=== PATIENT | female | born 1945 | race Caucasian/White ===

== ENCOUNTER 2018-04-28 12:28 | Inpatient (IN) | payer MEDICARE, OTHER ==
[~2018-04-28] VITALS: Ht 165.1 cm; Wt 71.1 kg
--- NOTE | 2018-04-28 12:28 | NUR ---
PT. ARRIVES BY [facility] AFTER BEING FOUND ON HER FLOOR AT HOME. [facility]. WAS HYPOXIC IN THE HIGH 60'S TO LOW 70'S. PT. ARRIVES ON A NASAL CANNULA WELL NON-REBREATHER MASK. PT. HAS THE CP MONITOR IN PLACE. PT. IS CONTINENT OF EMESIS, URINE AND FECES FROM HEAD TO TOE. PT. WAS GIVEN SKIN CARE. IV ACCESS WAS ESTABLISHED IN THE FIELD. A SECOND IV WAS PLACED AND PT.'S NS BOLUS IS INFUSING. LABS WERE DRAWN AND SENT, INCLUDING BLOOD CULTURES. PT. HAS THE SEPSIS PROTOCAL INICIATED. PT. IS PALE AND HAS DARK, BROWN BLOODY EMESIS PRESENT. KELSY MALDONADO IS ASSISTING THE PRIMARY CARE RN ANGELLA WITH THE PT.'S CARE. PT. WAS GIVEN SKIN CARE, HOB IS ELEVATED ABOVE 30 DEGREES AND WARMING MEASURES ARE IN PLACE. DR. CARCAMO IS AT THE BEDSIDE.
[2018-04-28] MEDS ORDERED: ONDANSETRON 2MG/ML, 2ML ONE (12:36)
[2018-04-28] MEDS ORDERED: PANTOPRAZOLE 80 MG in SODIUM CHLORIDE 0.9% 50 ML IVPB ONE (12:54)
[2018-04-28] MEDS ORDERED: PIPERACILLIN/TAZO/PMX 3.375GM 50 ML ONE ×2 (12:56→19:46)
[2018-04-28] MEDS ORDERED: PANTOPRAZOLE 40 MG IV ONE ×2 (12:56→20:32)
[2018-04-28] MEDS ORDERED: ONDANSETRON 2MG/ML, 2ML IVPush ONE (13:00)
[2018-04-28] MEDS ORDERED: PLEASE ENTER ALLERGIES MC SCH (13:00)
[2018-04-28] MEDS ORDERED: SODIUM CHLORIDE 0.9% 1,000ML IVBOLUS ONE (13:00)
[2018-04-28] MEDS ORDERED: PIPERACILLIN/TAZO/PMX 3.375GM 50 ML IVPB ONE (13:00)
[2018-04-28] MEDS ORDERED: VANCOMYCIN 1,200 MG in SODIUM CHLORIDE 0.9% 250 ML IV ONE (13:00)
[2018-04-28] MEDS ORDERED: METOCLOPRAMIDE 5 MG/ML, 2ML IVPush ONE (13:00)
[2018-04-28] MEDS ORDERED: VANCOMYCIN PER PHARMACY MC ONE (13:00)
--- NOTE | 2018-04-28 13:00 | NUR ---
KELSY MALDONADO IS ASSUMING CARE OF THE PT. IV ABX ARE INFUSING ON THE PUMP. PT. REMAINS MONITORED WITH THE HOB ELEVATED ABOVE 30 DEGREES. PT.'S BOLUS IS INFUSING.
--- NOTE | 2018-04-28 13:01 | NUR ---
PT. 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 PT. REMAINS PALE, WARM AND DRY. PT.'S ABD. IS SOFT AND FLAT WITH BS + X 4 QUADS. CAP REFILL IS BRISK WITH PULSES +2 THROUGHOUT. RN REMAINS AT THE PT.'S BEDSIDE.
[2018-04-28 13:08] LABS: MEAN CORPUSCULAR HEMOGLOBIN 28.9 pg (27.0-34.8); MEAN CORPUSCULAR VOLUME 87.7 fL (80-100); MEAN PLATELET VOLUME 9.8 fL (7.4-10.4); PLATELET COUNT 361 x10^3/uL (130-400); RED BLOOD COUNT 3.56 x10^6/uL (3.82-5.3); RED CELL DISTRIBUTION WIDTH 15.1 % (9.6-15.2)
[2018-04-28 13:09] LABS: MD YES
[2018-04-28] MEDS ORDERED: hydrALAzine 20 MG/ML, 1ML ONE (13:11)
[2018-04-28 13:16] LABS: ALBUMIN 2.9 g/dL (3.4-5.0); CALCIUM 7.9 mg/dL (8.5-10.1); CHLORIDE 113 mmol/L (98-107)
[2018-04-28 13:17] LABS: INTERNATIONAL NORMALIZED RATIO 1.31 (0.93-1.1); PROTHROMBIN TIME 13.4 Seconds (9.6-11.5)
[2018-04-28 13:20] LABS: ALANINE AMINOTRANSFERASE 19 U/L (12-78); ANION GAP 17 mmol/L (5-15); CREATININE 2.37 mg/dL (0.55-1.02)
[2018-04-28 13:21] LABS: BANDS%(MANUAL) 12 % (0-7); LYMPH#(MANUAL) 0.31 x10^3/uL (1-3.4); LYMPHS% (MANUAL) 1 % (22-44); MONOS#(MANUAL) 0.92 x10^3/uL (0.3-2.7); MONOS% (MANUAL) 3 % (2-9); SEG#(MANUAL) 25.87 x10^3/uL (1.8-6.8); SEGS% (MANUAL) 84 % (42-75)
[2018-04-28 13:22] LABS: <PLATELET ESTIMATE> ADEQUATE; <PLT MORPHOLOGY> NORMAL PLT MORPH; <RBC MORPHOLOGY> NORMAL
--- NOTE | 2018-04-28 13:23 | NUR ---
PT. WAS MEDICATED FOR AN ELEVATED BP ORDERED. ALL MEDICATIONS ARE BEING GIVEN PER MD'S INSTRUCTION. PT. REMAINS MONITORED WITH THE RN AT THE BEDSIDE.
[2018-04-28 13:24] LABS: ALKALINE PHOSPHATASE 134 U/L (45-117); BILIRUBIN,TOTAL 1.2 mg/dL (0.2-1.0); TOTAL PROTEIN 6.6 g/dL (6.4-8.2)
[2018-04-28 13:26] LABS: TROPONIN I 0.627 ng/mL (0.000-0.045)
[2018-04-28] MEDS ORDERED: hydrALAzine 20 MG/ML, 1ML IV ONE (13:30)
[2018-04-28] MEDS ORDERED: METOCLOPRAMIDE 5 MG/ML, 2ML ONE (13:34)
--- NOTE | 2018-04-28 13:45 | NUR ---
PT. IS RESTLESS AND AGITATED. PT. WAS REPOSITIONED FOR COMFORT AND MEDICATED DIRECTED. PT.'S HOB REMAINS ELEVATED ABOVE 30 DEGREES. PT. HAS BLANKETS IN PLACE WITH THE SIDERAILS UP X 2 AND THE RN AT THE BEDSIDEL
[2018-04-28] MEDS ORDERED: LORazepam 2 MG/ML, 1ML ONE (13:46)
[2018-04-28] MEDS ORDERED: LORazepam 2 MG/ML, 1ML IVPush ONE (14:00)
--- NOTE | 2018-04-28 14:20 | NUR ---
RN REMAINS AT THE BEDSIDE WITH THE PT. HOB IS ELEVATED GREATER THAN 30 DEGREES. MEDS ARE INFUSING ON THE PUMP. PT. REMAINS MONITORED. SIDERAILS ARE UP X 2, BLANKETS REMAIN IN PLACE.
--- NOTE | 2018-04-28 15:29 | NUR ---
PT. REMAINS MONITORED. STRAIGHT CATH WAS DONE. PT. WAS PLACED ON A WAFFLE MATTRESS AND REPOSITIONED FOR COMFORT. PT. IS RESTING AT THIS TIME. RN AT THE BEDSIDE. [facility]A SENT.
[2018-04-28 15:44] LABS: MICROSCOPIC INDICATED
[2018-04-28 16:01] LABS: CULTURE INDICATED? NO
--- NOTE | 2018-04-28 16:01 | NUR ---
DR. JOHNSON IS AT THE BEDSIDE.
--- NOTE | 2018-04-28 16:55 | NUR ---
RT EARLENE TO THE BEDSIDE TO ADJUST PT.'S OPI-FLOW SETTINGS DOWN TO 30 LPM AT 50%.
--- NOTE | 2018-04-28 16:59 | NUR ---
NO CHANGES AT THIS TIME. PT. REMAINS MONITORED AND IS RESTING WITHOUT CONCERNS. SIDERAILS REMAIN UP X 2.
[2018-04-28] MEDS ORDERED: VANCOMYCIN PER PHARMACY MC PRN (17:00)
[2018-04-28] MEDS ORDERED: LORazepam 2 MG/ML, 1ML IVPush PRN (17:00)
[2018-04-28] MEDS ORDERED: POLYETHYLENE GLYCOL 17 GM PACKET PO PRN (17:00)
[2018-04-28] MEDS ORDERED: BISACODYL 10 MG SUPP PR PRN (17:00)
[2018-04-28] MEDS ORDERED: OXYcodone IR 5MG TABLET PO PRN (17:00)
[2018-04-28] MEDS ORDERED: ONDANSETRON 2MG/ML, 2ML IVPush PRN (17:00)
[2018-04-28] MEDS ORDERED: ONDANSETRON ODT 4 MG PO PRN (17:00)
[2018-04-28] MEDS ORDERED: ENALAPRILAT 1.25 MG/ML, 2ML IVPush PRN (17:00)
[2018-04-28] MEDS ORDERED: LABETALOL 5MG/ML, 20ML IVPush PRN (17:00)
[2018-04-28] MEDS ORDERED: morphine SULFATE 10 MG/ML, 1ML IVPush PRN (17:00)
[2018-04-28] MEDS: SODIUM CHLORIDE 0.9% 1,000 ML IV SCH (17:24)
[2018-04-28] MEDS ORDERED: POTASSIUM CHLORIDE 20 MEQ TAB.ER.PRT ONE (17:25)
[2018-04-28] MEDS ORDERED: POTASSIUM CHLORIDE 20 MEQ TAB.ER.PRT PO ONE (17:30)
--- NOTE | 2018-04-28 17:47 | NUR ---
DR. SHELBY WAS CALLED WITH PT.'S ELEVATED TROP LEVEL, MESSAGE LEFT. REPEAT EKG WAS DONE. CONTINUOUS MONITORING IS IN PLACE.
[2018-04-28] MEDS ORDERED: LABETALOL 5MG/ML, 20ML ONE (17:52)
--- NOTE | 2018-04-28 17:53 | NUR ---
PT. WAS MEDICATED FOR ELEVATED BP ORDERED. PT. REMAINS MONITORED.
--- NOTE | 2018-04-28 18:30 | NUR ---
MD SANDHU AT THE BEDSIDE. DISCUSSED THE PT.'S PLAN OF CARE WITH THE RN. MD WAS GIVEN THE PT.'S REPEAT EKG. MEDICATIONS WERE ORDERED FROM THE PHARMACY.
[2018-04-28] MEDS ORDERED: METOPROLOL TARTRATE 25 MG TABLET ONE (18:32)
[2018-04-28] MEDS: METOPROLOL TARTRATE 25 MG TABLET PO SCH (18:36)
--- NOTE | 2018-04-28 19:28 | NUR ---
REPORT FROM CAMDEN TIERNEY.
--- NOTE | 2018-04-28 19:44 | NUR ---
PHARMACY CALLED FOR INSULIN PEN, STATES THEY WILL SEND IT DOWN
[2018-04-28] MEDS: PIPERACILLIN/TAZO/PMX 3.375GM 50 ML IV SCH (19:51)
--- NOTE | 2018-04-28 19:56 | NUR ---
PT FSBS 380, AWAITING INSULIN PEN FROM PHARMACY. PT REMAINS ON CONT CARDIAC AND PULSE OX MONITORING, PT SLEEPING DURING INTERVENTIONS, BILATERAL CHEST RISE NOTED. FLUIDS INFUSING, (ABX AND NS)
[2018-04-28] MEDS: PANTOPRAZOLE 40 MG IV IVPush SCH (20:35)
[2018-04-28] MEDS: INSULIN LISPRO 100 UNITS/ML, PEN SQ-INSULIN SCH ×2 (20:37→21:00)
--- NOTE | 2018-04-28 20:40 | NUR ---
PT SATS REMAIN ABOVE 97% ON OPTIFLOW, PT SLEEPING, REMAINS ON CONT CARDIAC AND PULSE OX MONITORING. ABX COMPLETE. INSULIN RECIEVED FROM PHARMACY, PT MEDICATED PER EMAR
--- NOTE | 2018-04-28 22:00 | NUR ---
PT INCONTINENT OF URINE, PT CLEANED, SHEETS AND GOWN CHANGED. PURWIK APPLIED TO PT TO DECREASE SKIN BREAKDOWN. PT AROUSABLE TO STIMULI, PT BACK TO SLEEP AFTER INTERVENTIONS.
--- NOTE | 2018-04-28 23:05 | NUR ---
PT REPOSITIONED FOR COMFORT FROM LEFT SIDE TO RIGHT SIDE. PT REMAINS ON WAFFLE MATTRESS.
--- NOTE | 2018-04-28 23:21 | NUR ---
SON [facility] [phone] REPORTS PT HAS HOME HEALTH RN WHO HAS MORE INFORMATION ON PATIENT, KAMILLE [phone] FROM [facility]
--- NOTE | 2018-04-28 23:44 | NUR ---
MD SANDHU AWARE OF ELEVALTED REPEAT TROP, REPEAT EKG COMPLETED, SIGNED BY ER
--- NOTE | 2018-04-29 01:18 | NUR ---
REPORT TO RANDELL TIERNEY ON FLOOR. PT REQESTING WATER UPON TRANSPORT, RN EXPLAINED NPO, PT TRANSPORTED TO ICU. ICU AWARE OF ELEVATED TROP, EKG'S AND AWARE SALLABERRY AWARE. UNK IF CARDIOLOGY HAS BEEN CONSULTED.
--- NOTE | 2018-04-29 01:19 | NUR ---
FLUIDS INFUSING TO FLOOR
[2018-04-29 01:27] VITALS: BP 156/81
[2018-04-29] MEDS ORDERED: PHARMACOKINETIC CONSULTATION MC ONE (01:30)
[2018-04-29] MEDS ORDERED: PHARMACOKINETIC MONITORING MC PRN (01:30)
[2018-04-29 01:42] VITALS: BP 156/81
[2018-04-29] MEDS: PIPERACILLIN/TAZO/PMX 3.375GM 50 ML IV SCH ×3 (02:10→13:00)
[2018-04-29] MEDS: SODIUM CHLORIDE 0.9% 1,000 ML IV SCH (02:11)
[2018-04-29] MEDS ORDERED: INSULIN LISPRO 100 UNITS/ML, PEN SQ-INSULIN SCH (03:00)
[2018-04-29 04:00] VITALS: BP 123/54
[2018-04-29 04:27] LABS: MEAN CORPUSCULAR HEMOGLOBIN 30.1 pg (27.0-34.8); MEAN CORPUSCULAR VOLUME 88.4 fL (80-100); MEAN PLATELET VOLUME 9.6 fL (7.4-10.4); PLATELET COUNT 208 x10^3/uL (130-400); RED BLOOD COUNT 2.54 x10^6/uL (3.82-5.3); RED CELL DISTRIBUTION WIDTH 14.9 % (9.6-15.2)
[2018-04-29 04:39] LABS: INTERNATIONAL NORMALIZED RATIO 1.33 (0.93-1.1); PROTHROMBIN TIME 13.8 Seconds (9.6-11.5)
[2018-04-29 04:46] LABS: ANION GAP 10 mmol/L (5-15); CALCIUM 7.4 mg/dL (8.5-10.1); CHLORIDE 121 mmol/L (98-107)
[2018-04-29 04:49] LABS: ALANINE AMINOTRANSFERASE 12 U/L (12-78); ALKALINE PHOSPHATASE 78 U/L (45-117); BILIRUBIN,TOTAL 1.5 mg/dL (0.2-1.0); TOTAL PROTEIN 4.9 g/dL (6.4-8.2)
[2018-04-29 04:53] LABS: MD YES
[2018-04-29 05:19] LABS: BAND#(MANUAL) 1.52 x10^3/uL; BANDS%(MANUAL) 8 % (0-7); LYMPH#(MANUAL) 0.95 x10^3/uL (1-3.4); LYMPHS% (MANUAL) 5 % (22-44); MONOS#(MANUAL) 0.76 x10^3/uL (0.3-2.7); MONOS% (MANUAL) 4 % (2-9); SEGS% (MANUAL) 83 % (42-75)
[2018-04-29 05:20] LABS: <PLATELET ESTIMATE> ADEQUATE; <PLT MORPHOLOGY> NORMAL PLT MORPH; <RBC MORPHOLOGY> NORMAL
[2018-04-29] MEDS: METOPROLOL TARTRATE 25 MG TABLET PO SCH ×2 (05:38→18:54)
[2018-04-29] MEDS ORDERED: POTASSIUM CHLORIDE 20 MEQ TAB.ER.PRT PO ONE (07:30)
[2018-04-29 07:54] LABS: CHOLESTEROL, TOTAL 148 mg/dL (140-239); TRIGLYCERIDES 58 mg/dL (50-200); VLDL CHOLESTEROL 12 mg/dL (0-25)
[2018-04-29 07:57] LABS: CHOL/HDL RATIO 2.7; HDL CHOL % 37 % (28-40); HDL CHOLESTEROL (DIRECT) 55 mg/dL (40-60); LDL CHOLESTEROL,CALCULATED 81 mg/dL (54-169); LDL/HDL RATIO 1.5 (0.5-3.0)
[2018-04-29] MEDS: SENNA/DOCUSATE TABLET PO SCH (09:03)
[2018-04-29] MEDS: ASPIRIN 325 MG TABLET PO SCH (09:04)
[2018-04-29] MEDS: SODIUM CHLORIDE 0.45% 1,000 ML IV SCH (09:05)
[2018-04-29] MEDS: PANTOPRAZOLE 40 MG IV IVPush SCH ×2 (09:05→21:30)
[2018-04-29 10:29] VITALS: BP 136/67
[2018-04-29] MEDS: INSULIN LISPRO 100 UNITS/ML, PEN SQ-INSULIN SCH ×6 (11:00→21:00)
[2018-04-29] MEDS: PIPERACILLIN/TAZO/PMX 2.25GM 50 ML IV SCH ×2 (15:00→21:30)
--- NOTE | 2018-04-29 15:01 | NUR ---
UNIT SECY RECOMMEND; FULL LIQUID NTL -No straws -Head of bed at 90 degrees -Small sips/ bites -Meds floated Addendum: 04/29/18 at [address] Amended: Links added.
[2018-04-29 15:21] VITALS: BP 169/76
[2018-04-29 18:39] VITALS: BP 151/71
[2018-04-29 20:45] LABS: FREE T4 (FREE THYROXINE) 1.16 ng/dL (0.76-1.46); THYROID STIMULATING HORMONE 1.96 mIU/L (0.358-3.740)
[2018-04-29] MEDS ORDERED: MAGNESIUM SULFATE PMX 2GM/50ML 50 ML IV ONE (21:30)
[2018-04-29] MEDS: ATORVASTATIN 40 MG TABLET PO SCH (21:31)
[2018-04-30] MEDS: PIPERACILLIN/TAZO/PMX 2.25GM 50 ML IV SCH ×4 (02:27→15:00)
[2018-04-30 02:53] VITALS: BP 158/68
[2018-04-30] MEDS ORDERED: DIPHENHYDRAMINE 25 MG CAPSULE ONE (03:29)
[2018-04-30] MEDS: DIPHENHYDRAMINE 25 MG CAPSULE PO PRN (03:32)
[2018-04-30 05:26] VITALS: BP 169/71
[2018-04-30] MEDS: ASPIRIN 325 MG TABLET PO SCH (05:27)
[2018-04-30] MEDS: METOPROLOL TARTRATE 25 MG TABLET PO SCH ×2 (05:28→18:34)
[2018-04-30 05:59] LABS: BASOPHILS # (AUTO) 0.05 x10^3/uL (0-0.1); BASOPHILS % (AUTO) 0 % (0-1); EOSINOPHILS # (AUTO) 0.31 x10^3/uL (0-0.4); EOSINOPHILS % (AUTO) 2 % (1-7); LYMPHOCYTES # (AUTO) 1.38 x10^3/uL (1-3.4); LYMPHOCYTES % (AUTO) 9 % (22-44); MD NO; MEAN CORPUSCULAR HEMOGLOBIN 30.1 pg (27.0-34.8); MEAN CORPUSCULAR HGB CONC 33.6 g/dL (32.4-35.8); MEAN CORPUSCULAR VOLUME 89.6 fL (80-100); MEAN PLATELET VOLUME 9.9 fL (7.4-10.4); MONOCYTES # (AUTO) 0.49 x10^3/uL (0.2-0.8); MONOCYTES % (AUTO) 3 % (2-9); NEUTROPHILS # (AUTO) 13.47 x10^3/uL (1.8-6.8); NEUTROPHILS % (AUTO) 86 % (42-75); PLATELET COUNT 212 x10^3/uL (130-400); RED BLOOD COUNT 2.64 x10^6/uL (3.82-5.3)
[2018-04-30 06:06] LABS: CHLORIDE 114 mmol/L (98-107)
[2018-04-30 06:07] LABS: ANION GAP 12 mmol/L (5-15); CALCIUM 8.1 mg/dL (8.5-10.1)
[2018-04-30 06:10] LABS: VANCOMYCIN,RANDOM 9.7 mcg/mL
[2018-04-30] MEDS: INSULIN LISPRO 100 UNITS/ML, PEN SQ-INSULIN SCH ×6 (07:00→20:47)
[2018-04-30 07:19] VITALS: BP 162/75
[2018-04-30] MEDS: SENNA/DOCUSATE TABLET PO SCH (08:08)
[2018-04-30] MEDS: PANTOPRAZOLE 40 MG IV IVPush SCH (08:08)
[2018-04-30] MEDS ORDERED: SODIUM BICARBONATE 8.4% 75 MEQ in DEXTROSE 5% 1,000 ML IV SCH (08:30)
[2018-04-30] MEDS: SODIUM CHLORIDE 0.45% 1,000 ML IV SCH (10:09)
--- NOTE | 2018-04-30 11:35 | NUR ---
HOT ROOM ATTENDANT RECOMMEND; CHOPPED/ NTL -No straws -Head of bed at 90 degrees -Small sips/ bites -Meds floated [place] sheet posted in room for diet recommendations Addendum: 04/30/18 at 1135 by FREDERICK STRONG Amended: Links added.
[2018-04-30] MEDS ORDERED: VANCOMYCIN 1,200 MG in SODIUM CHLORIDE 0.9% 250 ML IV ONE (13:00)
[2018-04-30 13:17] VITALS: BP 184/81
[2018-04-30] MEDS ORDERED: AMLODIPINE 5 MG TABLET PO SCH (14:00)
[2018-04-30 15:59] LABS: ANION GAP 13 mmol/L (5-15); CALCIUM 8.2 mg/dL (8.5-10.1); CHLORIDE 112 mmol/L (98-107); CREATININE 2.96 mg/dL (0.55-1.02)
[2018-04-30 16:09] LABS: BASOPHILS # (AUTO) 0.05 x10^3/uL (0-0.1); BASOPHILS % (AUTO) 0 % (0-1); EOSINOPHILS # (AUTO) 0.54 x10^3/uL (0-0.4); EOSINOPHILS % (AUTO) 3 % (1-7); LYMPHOCYTES # (AUTO) 1.71 x10^3/uL (1-3.4); LYMPHOCYTES % (AUTO) 11 % (22-44); MD NO; MEAN CORPUSCULAR HEMOGLOBIN 29.4 pg (27.0-34.8); MEAN CORPUSCULAR HGB CONC 33.1 g/dL (32.4-35.8); MEAN CORPUSCULAR VOLUME 88.9 fL (80-100); MEAN PLATELET VOLUME 10.4 fL (7.4-10.4); MONOCYTES # (AUTO) 0.55 x10^3/uL (0.2-0.8); MONOCYTES % (AUTO) 4 % (2-9); NEUTROPHILS # (AUTO) 12.95 x10^3/uL (1.8-6.8); NEUTROPHILS % (AUTO) 82 % (42-75); PLATELET COUNT 258 x10^3/uL (130-400); RED CELL DISTRIBUTION WIDTH 15.9 % (9.6-15.2)
[2018-04-30] MEDS: ACETAMINOPHEN 325 MG TABLET PO PRN ×2 (16:29→20:45)
[2018-04-30 17:36] LABS: CREATININE,URINE RANDOM 41.1 mg/dL
[2018-04-30 19:59] VITALS: BP 146/77
[2018-04-30] MEDS ORDERED: ONDANSETRON ODT 4 MG PO PRN (20:30)
[2018-04-30] MEDS: ATORVASTATIN 40 MG TABLET PO SCH (20:42)
[2018-05-01] VITALS (8 sets, daily range): BP systolic 145–194; BP diastolic 69–92
[2018-05-01] MEDS: PIPERACILLIN/TAZO/PMX 2.25GM 50 ML IV SCH ×4 (00:35→16:59)
[2018-05-01] MEDS: PANTOPRAZOLE 40 MG IV IVPush SCH ×3 (00:35→20:22)
[2018-05-01] MEDS: ASPIRIN 325 MG TABLET PO SCH (06:18)
[2018-05-01] MEDS: METOPROLOL TARTRATE 25 MG TABLET PO SCH ×2 (06:19→16:58)
[2018-05-01] MEDS: ENALAPRILAT 1.25 MG/ML, 2ML IV PRN ×2 (07:06→20:22)
[2018-05-01] MEDS: INSULIN LISPRO 100 UNITS/ML, PEN SQ-INSULIN SCH ×4 (08:14→20:18)
[2018-05-01] MEDS: SENNA/DOCUSATE TABLET PO SCH ×2 (08:18→08:25)
[2018-05-01] MEDS: AMLODIPINE 10 MG TAB PO SCH (08:22)
[2018-05-01 09:53] LABS: ANION GAP 8 mmol/L (5-15); CALCIUM 8.2 mg/dL (8.5-10.1); CHLORIDE 111 mmol/L (98-107); CREATININE 2.95 mg/dL (0.55-1.02)
[2018-05-01 10:00] LABS: BASOPHILS # (AUTO) 0.02 x10^3/uL (0-0.1); BASOPHILS % (AUTO) 0 % (0-1); EOSINOPHILS # (AUTO) 0.36 x10^3/uL (0-0.4); EOSINOPHILS % (AUTO) 3 % (1-7); LYMPHOCYTES # (AUTO) 1.15 x10^3/uL (1-3.4); LYMPHOCYTES % (AUTO) 10 % (22-44); MD NO; MEAN CORPUSCULAR HEMOGLOBIN 30.4 pg (27.0-34.8); MEAN CORPUSCULAR HGB CONC 34.2 g/dL (32.4-35.8); MEAN CORPUSCULAR VOLUME 88.8 fL (80-100); MEAN PLATELET VOLUME 10.3 fL (7.4-10.4); MONOCYTES # (AUTO) 0.28 x10^3/uL (0.2-0.8); MONOCYTES % (AUTO) 2 % (2-9); NEUTROPHILS # (AUTO) 10.29 x10^3/uL (1.8-6.8); NEUTROPHILS % (AUTO) 85 % (42-75); PLATELET COUNT 222 x10^3/uL (130-400); RED BLOOD COUNT 2.71 x10^6/uL (3.82-5.3); RED CELL DISTRIBUTION WIDTH 15.1 % (9.6-15.2)
[2018-05-01] MEDS: SODIUM CHLORIDE 0.45% 1,000 ML IV SCH (15:07)
[2018-05-01] MEDS: ATORVASTATIN 40 MG TABLET PO SCH (20:22)
[2018-05-02] VITALS (8 sets, daily range): BP systolic 150–190; BP diastolic 56–95
[2018-05-02] MEDS: PIPERACILLIN/TAZO/PMX 2.25GM 50 ML IV SCH ×2 (00:22→05:33)
[2018-05-02] MEDS: ENALAPRILAT 1.25 MG/ML, 2ML IV PRN (00:22)
[2018-05-02] MEDS: SODIUM CHLORIDE 0.45% 1,000 ML IV SCH ×2 (04:22→17:17)
[2018-05-02] MEDS: ASPIRIN 81 MG TABLET EC PO SCH (05:29)
[2018-05-02] MEDS: METOPROLOL TARTRATE 25 MG TABLET PO SCH ×2 (05:29→17:14)
[2018-05-02] MEDS: AMLODIPINE 10 MG TAB PO SCH (07:45)
[2018-05-02] MEDS: SENNA/DOCUSATE TABLET PO SCH (07:45)
[2018-05-02] MEDS: PANTOPRAZOLE 40 MG IV IVPush SCH (07:45)
[2018-05-02] MEDS: INSULIN LISPRO 100 UNITS/ML, PEN SQ-INSULIN SCH ×4 (07:45→20:15)
[2018-05-02 08:02] LABS: BASOPHILS # (AUTO) 0.03 x10^3/uL (0-0.1); BASOPHILS % (AUTO) 0 % (0-1); EOSINOPHILS # (AUTO) 0.33 x10^3/uL (0-0.4); EOSINOPHILS % (AUTO) 4 % (1-7); LYMPHOCYTES # (AUTO) 1.02 x10^3/uL (1-3.4); LYMPHOCYTES % (AUTO) 11 % (22-44); MD NO; MEAN CORPUSCULAR HEMOGLOBIN 29.2 pg (27.0-34.8); MEAN CORPUSCULAR HGB CONC 33.2 g/dL (32.4-35.8); MEAN CORPUSCULAR VOLUME 87.8 fL (80-100); MEAN PLATELET VOLUME 9.9 fL (7.4-10.4); MONOCYTES # (AUTO) 0.37 x10^3/uL (0.2-0.8); MONOCYTES % (AUTO) 4 % (2-9); NEUTROPHILS # (AUTO) 7.39 x10^3/uL (1.8-6.8); NEUTROPHILS % (AUTO) 81 % (42-75); PLATELET COUNT 250 x10^3/uL (130-400); RED BLOOD COUNT 2.64 x10^6/uL (3.82-5.3); RED CELL DISTRIBUTION WIDTH 15.3 % (9.6-15.2)
[2018-05-02 08:28] LABS: ANION GAP 13 mmol/L (5-15); CALCIUM 7.4 mg/dL (8.5-10.1); CHLORIDE 114 mmol/L (98-107); CREATININE 2.78 mg/dL (0.55-1.02)
[2018-05-02] MEDS: AMPICILLIN/SULBACTAM 3 GM in SODIUM CHLORIDE 0.9% 100 ML IV SCH ×2 (11:20→19:46)
[2018-05-02] MEDS: hydrALAzine 20 MG/ML, 1ML IV PRN (12:31)
[2018-05-02] MEDS: DIPHENHYDRAMINE 25 MG CAPSULE PO PRN (13:40)
[2018-05-02] MEDS ORDERED: ENALAPRILAT 1.25 MG/ML, 2ML IV PRN (14:00)
[2018-05-02] MEDS: PANTOPROZOLE 40MG TABLET PO SCH (18:07)
[2018-05-02] MEDS: ATORVASTATIN 40 MG TABLET PO SCH (19:46)
[2018-05-03 00:05] VITALS: BP 173/75
[2018-05-03] MEDS: hydrALAzine 20 MG/ML, 1ML IV PRN ×2 (00:25→06:22)
[2018-05-03] MEDS: AMPICILLIN/SULBACTAM 3 GM in SODIUM CHLORIDE 0.9% 100 ML IV SCH ×3 (03:37→23:45)
[2018-05-03 03:48] VITALS: BP 183/67
[2018-05-03] MEDS: ASPIRIN 81 MG TABLET EC PO SCH (06:20)
[2018-05-03] MEDS: METOPROLOL TARTRATE 25 MG TABLET PO SCH (06:21)
[2018-05-03] MEDS: SODIUM CHLORIDE 0.45% 1,000 ML IV SCH ×3 (06:25→21:12)
[2018-05-03] MEDS: INSULIN LISPRO 100 UNITS/ML, PEN SQ-INSULIN SCH ×4 (07:00→19:48)
[2018-05-03 07:03] LABS: MEAN CORPUSCULAR HEMOGLOBIN 29.5 pg (27.0-34.8); MEAN CORPUSCULAR HGB CONC 33.4 g/dL (32.4-35.8); MEAN CORPUSCULAR VOLUME 88.4 fL (80-100); MEAN PLATELET VOLUME 9.6 fL (7.4-10.4); PLATELET COUNT 304 x10^3/uL (130-400); RED BLOOD COUNT 2.97 x10^6/uL (3.82-5.3); RED CELL DISTRIBUTION WIDTH 15.3 % (9.6-15.2)
[2018-05-03 07:06] VITALS: BP 142/56
[2018-05-03 07:10] LABS: ALBUMIN 2.3 g/dL (3.4-5.0); ANION GAP 16 mmol/L (5-15); CALCIUM 7.9 mg/dL (8.5-10.1); CHLORIDE 114 mmol/L (98-107); CREATININE 2.55 mg/dL (0.55-1.02)
[2018-05-03 07:28] LABS: BASOPHILS # (AUTO) 0.04 x10^3/uL (0-0.1); BASOPHILS % (AUTO) 0 % (0-1); EOSINOPHILS % (AUTO) 3 % (1-7); LYMPHOCYTES # (AUTO) 1.55 x10^3/uL (1-3.4); LYMPHOCYTES % (AUTO) 15 % (22-44); MD SCAN; MONOCYTES % (AUTO) 5 % (2-9); NEUTROPHILS # (AUTO) 7.81 x10^3/uL (1.8-6.8); NEUTROPHILS % (AUTO) 77 % (42-75)
[2018-05-03] MEDS: SENNA/DOCUSATE TABLET PO SCH (07:41)
[2018-05-03] MEDS: CARVEDILOL 12.5 MG TABLET PO SCH ×2 (08:12→17:14)
[2018-05-03] MEDS: AMLODIPINE 10 MG TAB PO SCH (08:13)
[2018-05-03] MEDS: PANTOPROZOLE 40MG TABLET PO SCH ×2 (08:13→17:14)
[2018-05-03] MEDS ORDERED: DOXY100T9 PO (10:32)
[2018-05-03] MEDS ORDERED: ATOR40TA78 PO (10:32)
[2018-05-03] MEDS ORDERED: ASPI81TA45 PO (10:32)
[2018-05-03] MEDS ORDERED: PANT40TA5 PO (10:32)
[2018-05-03] MEDS ORDERED: CARV12.543 PO (10:32)
[2018-05-03] MEDS ORDERED: AMOX1TAB61 PO (10:32)
[2018-05-03] MEDS: DOXYCYCLINE 100MG TABLET PO SCH ×2 (11:28→19:40)
[2018-05-03 11:43] LABS: INTERNATIONAL NORMALIZED RATIO 1.03 (0.93-1.1); PROTHROMBIN TIME 10.7 Seconds (9.6-11.5)
[2018-05-03 12:26] LABS: HEMOGLOBIN A1C 8.3 % (4.2-6.3)
[2018-05-03] MEDS ORDERED: WARFARIN 5 MG TABLET PO-COUM ONE (18:00)
[2018-05-03 18:54] VITALS: BP 140/58
[2018-05-03] MEDS: ATORVASTATIN 40 MG TABLET PO SCH (19:40)
[2018-05-04 01:08] VITALS: BP 140/65
[2018-05-04 05:20] LABS: BASOPHILS # (AUTO) 0.03 x10^3/uL (0-0.1); BASOPHILS % (AUTO) 0 % (0-1); EOSINOPHILS # (AUTO) 0.39 x10^3/uL (0-0.4); EOSINOPHILS % (AUTO) 4 % (1-7); LYMPHOCYTES # (AUTO) 1.24 x10^3/uL (1-3.4); LYMPHOCYTES % (AUTO) 12 % (22-44); MD NO; MEAN CORPUSCULAR HEMOGLOBIN 30.2 pg (27.0-34.8); MEAN CORPUSCULAR HGB CONC 34.3 g/dL (32.4-35.8); MEAN CORPUSCULAR VOLUME 88.2 fL (80-100); MEAN PLATELET VOLUME 9.8 fL (7.4-10.4); MONOCYTES # (AUTO) 0.51 x10^3/uL (0.2-0.8); MONOCYTES % (AUTO) 5 % (2-9); NEUTROPHILS # (AUTO) 8.23 x10^3/uL (1.8-6.8); NEUTROPHILS % (AUTO) 79 % (42-75); PLATELET COUNT 281 x10^3/uL (130-400); RED BLOOD COUNT 2.73 x10^6/uL (3.82-5.3); RED CELL DISTRIBUTION WIDTH 15.3 % (9.6-15.2)
[2018-05-04 05:24] VITALS: BP 165/70
[2018-05-04] MEDS: CARVEDILOL 12.5 MG TABLET PO SCH ×2 (05:27→17:31)
[2018-05-04] MEDS: ASPIRIN 81 MG TABLET EC PO SCH (05:27)
[2018-05-04 05:28] LABS: ALBUMIN 2.1 g/dL (3.4-5.0); ANION GAP 14 mmol/L (5-15); CALCIUM 7.6 mg/dL (8.5-10.1); CHLORIDE 111 mmol/L (98-107); CREATININE 2.78 mg/dL (0.55-1.02)
[2018-05-04 06:11] LABS: INTERNATIONAL NORMALIZED RATIO 1.08 (0.93-1.1); PROTHROMBIN TIME 11.2 Seconds (9.6-11.5)
[2018-05-04] MEDS: PANTOPROZOLE 40MG TABLET PO SCH ×2 (07:31→16:15)
[2018-05-04] MEDS: INSULIN LISPRO 100 UNITS/ML, PEN SQ-INSULIN SCH ×4 (07:36→19:19)
[2018-05-04] MEDS: AMLODIPINE 10 MG TAB PO SCH (08:27)
[2018-05-04] MEDS: SENNA/DOCUSATE TABLET PO SCH (08:29)
[2018-05-04] MEDS: DOXYCYCLINE 100MG TABLET PO SCH ×2 (08:29→19:11)
[2018-05-04] MEDS: SODIUM CHLORIDE 0.45% 1,000 ML IV SCH ×2 (08:33→19:11)
[2018-05-04] MEDS ORDERED: SODIUM CHLORIDE 0.45% 500 ML IV SCH (09:00)
[2018-05-04] MEDS: AMPICILLIN/SULBACTAM 3 GM in SODIUM CHLORIDE 0.9% 100 ML IV SCH ×2 (10:58→23:37)
[2018-05-04 13:26] VITALS: BP 148/68
[2018-05-04] MEDS ORDERED: WARFARIN 5 MG TABLET PO-COUM ONE (18:00)
[2018-05-04] MEDS: ATORVASTATIN 40 MG TABLET PO SCH (19:11)
[2018-05-04 19:26] VITALS: BP 146/65
[2018-05-04 21:24] LABS: MICROSCOPIC INDICATED
[2018-05-04 22:11] LABS: CREATININE,URINE RANDOM 73.7 mg/dL
[2018-05-05 00:54] VITALS: BP 148/62
[2018-05-05 05:14] VITALS: BP 156/65
[2018-05-05] MEDS: ASPIRIN 81 MG TABLET EC PO SCH (05:17)
[2018-05-05] MEDS: CARVEDILOL 12.5 MG TABLET PO SCH ×2 (05:17→16:14)
[2018-05-05 05:40] LABS: MEAN CORPUSCULAR HEMOGLOBIN 30.3 pg (27.0-34.8); MEAN CORPUSCULAR HGB CONC 34.2 g/dL (32.4-35.8); MEAN CORPUSCULAR VOLUME 88.7 fL (80-100); MEAN PLATELET VOLUME 9.8 fL (7.4-10.4); PLATELET COUNT 269 x10^3/uL (130-400); RED BLOOD COUNT 2.58 x10^6/uL (3.82-5.3); RED CELL DISTRIBUTION WIDTH 15.5 % (9.6-15.2)
[2018-05-05 05:47] LABS: INTERNATIONAL NORMALIZED RATIO 1.15 (0.93-1.1); PROTHROMBIN TIME 11.9 Seconds (9.6-11.5)
[2018-05-05 05:51] LABS: ANION GAP 13 mmol/L (5-15); CALCIUM 7.5 mg/dL (8.5-10.1); CHLORIDE 112 mmol/L (98-107); CREATININE 2.72 mg/dL (0.55-1.02); IRON LEVEL 37 mcg/dL (50-170)
[2018-05-05 05:55] LABS: % IRON SATURATION 17 % (20-55); TOTAL IRON BINDING CAPACITY 216 mcg/dL (250-450)
[2018-05-05 06:50] LABS: BASOPHILS # (AUTO) 0.03 x10^3/uL (0-0.1); BASOPHILS % (AUTO) 0 % (0-1); EOSINOPHILS # (AUTO) 0.51 x10^3/uL (0-0.4); EOSINOPHILS % (AUTO) 4 % (1-7); LYMPHOCYTES # (AUTO) 1.48 x10^3/uL (1-3.4); LYMPHOCYTES % (AUTO) 13 % (22-44); MD SCAN; MONOCYTES # (AUTO) 0.65 x10^3/uL (0.2-0.8); MONOCYTES % (AUTO) 6 % (2-9); NEUTROPHILS # (AUTO) 8.87 x10^3/uL (1.8-6.8); NEUTROPHILS % (AUTO) 77 % (42-75)
[2018-05-05] MEDS: INSULIN LISPRO 100 UNITS/ML, PEN SQ-INSULIN SCH ×4 (07:00→21:51)
[2018-05-05 07:17] VITALS: BP 140/61
[2018-05-05] MEDS: DOXYCYCLINE 100MG TABLET PO SCH ×2 (08:47→21:50)
[2018-05-05] MEDS: SODIUM BICARBONATE 650 MG TABLET PO SCH ×2 (08:47→21:50)
[2018-05-05] MEDS: AMLODIPINE 10 MG TAB PO SCH (08:47)
[2018-05-05] MEDS: ERGOCALCIFEROL 50,000 UNIT CAPSULE PO SCH (08:48)
[2018-05-05] MEDS: SENNA/DOCUSATE TABLET PO SCH (08:48)
[2018-05-05] MEDS: PANTOPROZOLE 40MG TABLET PO SCH ×2 (08:48→16:14)
[2018-05-05] MEDS: AMPICILLIN/SULBACTAM 3 GM in SODIUM CHLORIDE 0.9% 100 ML IV SCH (11:26)
[2018-05-05] MEDS: SODIUM CHLORIDE 0.45% 1,000 ML IV SCH ×2 (16:14→23:21)
[2018-05-05] MEDS ORDERED: WARFARIN 7.5 MG TABLET PO-COUM ONE (18:00)
[2018-05-05 19:20] VITALS: BP 137/60
[2018-05-05] MEDS: ATORVASTATIN 40 MG TABLET PO SCH (21:50)
[2018-05-06 01:14] VITALS: BP 138/62
[2018-05-06 05:37] LABS: BASOPHILS # (AUTO) 0.04 x10^3/uL (0-0.1); BASOPHILS % (AUTO) 0 % (0-1); EOSINOPHILS # (AUTO) 0.48 x10^3/uL (0-0.4); EOSINOPHILS % (AUTO) 5 % (1-7); LYMPHOCYTES # (AUTO) 1.52 x10^3/uL (1-3.4); LYMPHOCYTES % (AUTO) 15 % (22-44); MD NO; MEAN CORPUSCULAR HEMOGLOBIN 30.2 pg (27.0-34.8); MEAN CORPUSCULAR VOLUME 88.9 fL (80-100); MEAN PLATELET VOLUME 10.4 fL (7.4-10.4); MONOCYTES # (AUTO) 0.67 x10^3/uL (0.2-0.8); MONOCYTES % (AUTO) 7 % (2-9); NEUTROPHILS # (AUTO) 7.63 x10^3/uL (1.8-6.8); NEUTROPHILS % (AUTO) 74 % (42-75); PLATELET COUNT 272 x10^3/uL (130-400); RED BLOOD COUNT 2.64 x10^6/uL (3.82-5.3); RED CELL DISTRIBUTION WIDTH 15.2 % (9.6-15.2)
[2018-05-06 05:41] LABS: INTERNATIONAL NORMALIZED RATIO 1.42 (0.93-1.1); PROTHROMBIN TIME 14.7 Seconds (9.6-11.5)
[2018-05-06 05:45] LABS: ALBUMIN 1.9 g/dL (3.4-5.0); ANION GAP 12 mmol/L (5-15); CALCIUM 7.7 mg/dL (8.5-10.1); CHLORIDE 112 mmol/L (98-107); CREATININE 3.13 mg/dL (0.55-1.02)
[2018-05-06] MEDS: CARVEDILOL 12.5 MG TABLET PO SCH ×2 (06:03→16:27)
[2018-05-06] MEDS: ASPIRIN 81 MG TABLET EC PO SCH (06:03)
[2018-05-06 06:59] VITALS: BP 141/59
[2018-05-06] MEDS: INSULIN LISPRO 100 UNITS/ML, PEN SQ-INSULIN SCH ×4 (07:00→21:00)
[2018-05-06] MEDS: SENNA/DOCUSATE TABLET PO SCH (09:00)
[2018-05-06] MEDS: SODIUM BICARBONATE 650 MG TABLET PO SCH ×2 (10:40→22:02)
[2018-05-06] MEDS: AMLODIPINE 10 MG TAB PO SCH (10:40)
[2018-05-06] MEDS: PANTOPROZOLE 40MG TABLET PO SCH ×2 (10:40→16:28)
[2018-05-06] MEDS: DOXYCYCLINE 100MG TABLET PO SCH ×2 (10:40→22:02)
[2018-05-06] MEDS: SODIUM CHLORIDE 0.45% 1,000 ML IV SCH (13:01)
--- NOTE | 2018-05-06 14:20 | NUR ---
-BIOLOGY SPECIALIST recommend upgrade to REGULAR/ Thins -no straws -meds as tolerated -head of bed at 90 degrees [place] sheet updated and posted in room Addendum: 05/06/18 at 1420 by FREDERICK STRONG Amended: Links added.
[2018-05-06 14:40] VITALS: BP 147/66
[2018-05-06] MEDS ORDERED: WARFARIN 2 MG TABLET PO-COUM ONE (18:00)
[2018-05-06] MEDS: ATORVASTATIN 40 MG TABLET PO SCH (22:02)
[2018-05-07] MEDS: SODIUM CHLORIDE 0.45% 1,000 ML IV SCH ×2 (01:08→15:11)
[2018-05-07 04:52] LABS: BASOPHILS # (AUTO) 0.02 x10^3/uL (0-0.1); BASOPHILS % (AUTO) 0 % (0-1); EOSINOPHILS # (AUTO) 0.54 x10^3/uL (0-0.4); EOSINOPHILS % (AUTO) 5 % (1-7); LYMPHOCYTES # (AUTO) 1.37 x10^3/uL (1-3.4); LYMPHOCYTES % (AUTO) 13 % (22-44); MD NO; MEAN CORPUSCULAR HEMOGLOBIN 29.8 pg (27.0-34.8); MEAN CORPUSCULAR HGB CONC 33.4 g/dL (32.4-35.8); MEAN CORPUSCULAR VOLUME 89.2 fL (80-100); MONOCYTES # (AUTO) 0.55 x10^3/uL (0.2-0.8); MONOCYTES % (AUTO) 5 % (2-9); NEUTROPHILS # (AUTO) 8.04 x10^3/uL (1.8-6.8); NEUTROPHILS % (AUTO) 76 % (42-75); PLATELET COUNT 274 x10^3/uL (130-400); RED BLOOD COUNT 2.61 x10^6/uL (3.82-5.3); RED CELL DISTRIBUTION WIDTH 15.6 % (9.6-15.2)
[2018-05-07 04:54] LABS: INTERNATIONAL NORMALIZED RATIO 1.81 (0.93-1.1); PROTHROMBIN TIME 18.6 Seconds (9.6-11.5)
[2018-05-07 04:57] LABS: ALBUMIN 2.1 g/dL (3.4-5.0); ANION GAP 10 mmol/L (5-15); CALCIUM 7.5 mg/dL (8.5-10.1); CHLORIDE 114 mmol/L (98-107); CREATININE 3.15 mg/dL (0.55-1.02)
[2018-05-07] MEDS: ASPIRIN 81 MG TABLET EC PO SCH (05:06)
[2018-05-07] MEDS: CARVEDILOL 12.5 MG TABLET PO SCH ×2 (05:06→17:42)
[2018-05-07] MEDS: INSULIN LISPRO 100 UNITS/ML, PEN SQ-INSULIN SCH ×4 (07:20→20:31)
[2018-05-07] MEDS ORDERED: AMOXICILLIN/CLAV 500-125MG TABLET PO SCH (07:30)
[2018-05-07 09:50] VITALS: BP 146/71
[2018-05-07] MEDS: AMLODIPINE 10 MG TAB PO SCH (09:56)
[2018-05-07] MEDS: SENNA/DOCUSATE TABLET PO SCH (09:56)
[2018-05-07] MEDS: DOXYCYCLINE 100MG TABLET PO SCH (09:56)
[2018-05-07] MEDS: PANTOPROZOLE 40MG TABLET PO SCH ×2 (09:56→16:33)
[2018-05-07] MEDS: SODIUM BICARBONATE 650 MG TABLET PO SCH ×2 (09:57→20:12)
[2018-05-07] MEDS: INSULIN GLARGINE 100 UNITS/ML, PEN SQ-INSULIN SCH (10:38)
[2018-05-07 13:00] VITALS: BP 152/70
[2018-05-07] MEDS ORDERED: WARFARIN 7.5 MG TABLET PO-COUM ONE (18:00)
[2018-05-07 18:41] VITALS: BP 144/62
[2018-05-07] MEDS: ATORVASTATIN 40 MG TABLET PO SCH (20:12)
[2018-05-08 00:53] VITALS: BP 144/64
[2018-05-08] MEDS: SODIUM CHLORIDE 0.45% 1,000 ML IV SCH ×2 (04:46→17:06)
[2018-05-08 05:26] LABS: CALCIUM 7.9 mg/dL (8.5-10.1); INTERNATIONAL NORMALIZED RATIO 2.66 (0.93-1.1); PROTHROMBIN TIME 27.1 Seconds (9.6-11.5)
[2018-05-08 05:29] LABS: ALBUMIN 2.1 g/dL (3.4-5.0); ANION GAP 11 mmol/L (5-15); CALCIUM 7.6 mg/dL (8.5-10.1); CHLORIDE 114 mmol/L (98-107); CREATININE 3.06 mg/dL (0.55-1.02)
[2018-05-08] MEDS: CARVEDILOL 12.5 MG TABLET PO SCH ×2 (06:12→16:57)
[2018-05-08] MEDS: ASPIRIN 81 MG TABLET EC PO SCH (06:12)
[2018-05-08] MEDS: INSULIN LISPRO 100 UNITS/ML, PEN SQ-INSULIN SCH ×4 (07:00→20:19)
[2018-05-08 07:30] VITALS: BP 133/63
[2018-05-08] MEDS: AMLODIPINE 10 MG TAB PO SCH (08:07)
[2018-05-08] MEDS: INSULIN GLARGINE 100 UNITS/ML, PEN SQ-INSULIN SCH (08:07)
[2018-05-08] MEDS: SENNA/DOCUSATE TABLET PO SCH (08:07)
[2018-05-08] MEDS: SODIUM BICARBONATE 650 MG TABLET PO SCH ×2 (08:07→20:22)
[2018-05-08] MEDS: PANTOPROZOLE 40MG TABLET PO SCH ×2 (08:08→16:56)
[2018-05-08 09:55] LABS: CREATININE,URINE RANDOM 42.9 mg/dL
[2018-05-08 13:05] VITALS: BP 136/60
[2018-05-08] MEDS ORDERED: DARBEPOETIN 60 MCG/ML SQ SCH ×2 (18:00→20:20)
[2018-05-08] MEDS ORDERED: WARFARIN 3 MG TABLET PO-COUM ONE (18:00)
[2018-05-08] MEDS: IRON SUCROSE COMPLEX 100MG/5ML IV SCH (20:22)
[2018-05-08] MEDS: ATORVASTATIN 40 MG TABLET PO SCH (20:22)
[2018-05-09 04:53] LABS: BASOPHILS # (AUTO) 0.04 x10^3/uL (0-0.1); BASOPHILS % (AUTO) 0 % (0-1); EOSINOPHILS # (AUTO) 0.34 x10^3/uL (0-0.4); EOSINOPHILS % (AUTO) 3 % (1-7); LYMPHOCYTES % (AUTO) 13 % (22-44); MD NO; MEAN CORPUSCULAR HEMOGLOBIN 30.1 pg (27.0-34.8); MEAN CORPUSCULAR HGB CONC 33.7 g/dL (32.4-35.8); MEAN CORPUSCULAR VOLUME 89.3 fL (80-100); MEAN PLATELET VOLUME 10.4 fL (7.4-10.4); MONOCYTES % (AUTO) 5 % (2-9); NEUTROPHILS # (AUTO) 8.71 x10^3/uL (1.8-6.8); NEUTROPHILS % (AUTO) 78 % (42-75); PLATELET COUNT 268 x10^3/uL (130-400); RED BLOOD COUNT 2.58 x10^6/uL (3.82-5.3); RED CELL DISTRIBUTION WIDTH 15.5 % (9.6-15.2)
[2018-05-09 04:56] LABS: INTERNATIONAL NORMALIZED RATIO 3.62 (0.93-1.1); PROTHROMBIN TIME 36.7 Seconds (9.6-11.5)
[2018-05-09 05:00] LABS: ALBUMIN 2.1 g/dL (3.4-5.0); ANION GAP 10 mmol/L (5-15); CALCIUM 7.6 mg/dL (8.5-10.1); CHLORIDE 113 mmol/L (98-107)
[2018-05-09] MEDS: ASPIRIN 81 MG TABLET EC PO SCH (05:58)
[2018-05-09] MEDS: CARVEDILOL 12.5 MG TABLET PO SCH ×2 (05:58→17:28)
[2018-05-09] MEDS: SODIUM CHLORIDE 0.45% 1,000 ML IV SCH (05:59)
[2018-05-09] MEDS: INSULIN LISPRO 100 UNITS/ML, PEN SQ-INSULIN SCH ×4 (07:00→20:21)
[2018-05-09 07:20] VITALS: BP 138/65
[2018-05-09] MEDS: SENNA/DOCUSATE TABLET PO SCH (08:33)
[2018-05-09] MEDS: INSULIN GLARGINE 100 UNITS/ML, PEN SQ-INSULIN SCH (08:34)
[2018-05-09] MEDS: SODIUM BICARBONATE 650 MG TABLET PO SCH ×2 (08:35→20:21)
[2018-05-09] MEDS: AMLODIPINE 10 MG TAB PO SCH (08:35)
[2018-05-09] MEDS: PANTOPROZOLE 40MG TABLET PO SCH ×2 (08:35→17:28)
[2018-05-09 14:32] VITALS: BP 135/59
[2018-05-09 19:28] VITALS: BP 143/68
[2018-05-09] MEDS: IRON SUCROSE COMPLEX 100MG/5ML IV SCH (20:21)
[2018-05-09] MEDS: ATORVASTATIN 40 MG TABLET PO SCH (20:21)
[2018-05-10 01:45] VITALS: BP 139/62
[2018-05-10 05:26] LABS: INTERNATIONAL NORMALIZED RATIO 3.48 (0.93-1.1); PROTHROMBIN TIME 35.3 Seconds (9.6-11.5)
[2018-05-10] MEDS: CARVEDILOL 12.5 MG TABLET PO SCH ×2 (05:38→17:08)
[2018-05-10] MEDS: ASPIRIN 81 MG TABLET EC PO SCH (05:38)
[2018-05-10 07:10] VITALS: BP 136/70
[2018-05-10] MEDS: SENNA/DOCUSATE TABLET PO SCH (07:12)
[2018-05-10 07:22] LABS: BASOPHILS # (AUTO) 0.02 x10^3/uL (0-0.1); BASOPHILS % (AUTO) 0 % (0-1); EOSINOPHILS # (AUTO) 0.26 x10^3/uL (0-0.4); EOSINOPHILS % (AUTO) 3 % (1-7); LYMPHOCYTES # (AUTO) 1.41 x10^3/uL (1-3.4); LYMPHOCYTES % (AUTO) 15 % (22-44); MD NO; MEAN CORPUSCULAR HEMOGLOBIN 30.1 pg (27.0-34.8); MEAN CORPUSCULAR HGB CONC 33.8 g/dL (32.4-35.8); MEAN CORPUSCULAR VOLUME 89.2 fL (80-100); MEAN PLATELET VOLUME 10.6 fL (7.4-10.4); MONOCYTES # (AUTO) 0.56 x10^3/uL (0.2-0.8); MONOCYTES % (AUTO) 6 % (2-9); NEUTROPHILS # (AUTO) 7.52 x10^3/uL (1.8-6.8); NEUTROPHILS % (AUTO) 77 % (42-75); PLATELET COUNT 279 x10^3/uL (130-400); RED BLOOD COUNT 2.74 x10^6/uL (3.82-5.3); RED CELL DISTRIBUTION WIDTH 16.1 % (9.6-15.2)
[2018-05-10 07:38] LABS: ALBUMIN 2.3 g/dL (3.4-5.0); ANION GAP 11 mmol/L (5-15); CALCIUM 8.3 mg/dL (8.5-10.1); CHLORIDE 115 mmol/L (98-107); CREATININE 2.99 mg/dL (0.55-1.02)
[2018-05-10] MEDS ORDERED: HOLD COUMADIN MC PRN (08:00)
[2018-05-10] MEDS: SODIUM BICARBONATE 650 MG TABLET PO SCH ×3 (08:35→20:13)
[2018-05-10] MEDS: PANTOPROZOLE 40MG TABLET PO SCH ×2 (08:35→17:08)
[2018-05-10] MEDS: INSULIN GLARGINE 100 UNITS/ML, PEN SQ-INSULIN SCH (08:35)
[2018-05-10] MEDS: AMLODIPINE 10 MG TAB PO SCH (08:35)
[2018-05-10] MEDS: INSULIN LISPRO 100 UNITS/ML, PEN SQ-INSULIN SCH ×4 (08:36→20:19)
[2018-05-10 14:00] VITALS: BP 126/64
[2018-05-10 19:57] VITALS: BP 119/65
[2018-05-10] MEDS: ATORVASTATIN 40 MG TABLET PO SCH (20:13)
[2018-05-10] MEDS: IRON SUCROSE COMPLEX 100MG/5ML IV SCH (20:18)
[2018-05-11 00:55] VITALS: BP 131/67
[2018-05-11] MEDS: ASPIRIN 81 MG TABLET EC PO SCH (05:26)
[2018-05-11] MEDS: CARVEDILOL 12.5 MG TABLET PO SCH ×2 (05:27→16:50)
[2018-05-11 05:41] LABS: MEAN CORPUSCULAR HEMOGLOBIN 30.4 pg (27.0-34.8); MEAN CORPUSCULAR HGB CONC 33.9 g/dL (32.4-35.8); MEAN CORPUSCULAR VOLUME 89.6 fL (80-100); MEAN PLATELET VOLUME 10.9 fL (7.4-10.4); PLATELET COUNT 268 x10^3/uL (130-400); RED BLOOD COUNT 2.56 x10^6/uL (3.82-5.3)
[2018-05-11 05:44] LABS: INTERNATIONAL NORMALIZED RATIO 2.89 (0.93-1.1); PROTHROMBIN TIME 29.4 Seconds (9.6-11.5)
[2018-05-11 05:50] LABS: ALBUMIN 2.3 g/dL (3.4-5.0); ANION GAP 13 mmol/L (5-15); CALCIUM 8.1 mg/dL (8.5-10.1); CHLORIDE 115 mmol/L (98-107)
[2018-05-11 05:55] LABS: ALANINE AMINOTRANSFERASE 32 U/L (12-78); ALKALINE PHOSPHATASE 167 U/L (45-117); BILIRUBIN,TOTAL 0.6 mg/dL (0.2-1.0); CREATININE 3.15 mg/dL (0.55-1.02); TOTAL PROTEIN 5.7 g/dL (6.4-8.2)
[2018-05-11 05:58] LABS: BASOPHILS # (AUTO) 0.05 x10^3/uL (0-0.1); BASOPHILS % (AUTO) 0 % (0-1); EOSINOPHILS # (AUTO) 0.29 x10^3/uL (0-0.4); EOSINOPHILS % (AUTO) 3 % (1-7); LYMPHOCYTES # (AUTO) 1.26 x10^3/uL (1-3.4); LYMPHOCYTES % (AUTO) 11 % (22-44); MD SCAN; MONOCYTES # (AUTO) 0.77 x10^3/uL (0.2-0.8); MONOCYTES % (AUTO) 7 % (2-9); NEUTROPHILS # (AUTO) 9.44 x10^3/uL (1.8-6.8); NEUTROPHILS % (AUTO) 80 % (42-75)
[2018-05-11 06:50] VITALS: BP 137/64
[2018-05-11] MEDS: INSULIN LISPRO 100 UNITS/ML, PEN SQ-INSULIN SCH ×4 (07:00→20:33)
[2018-05-11] MEDS: SENNA/DOCUSATE TABLET PO SCH (07:21)
[2018-05-11] MEDS: INSULIN GLARGINE 100 UNITS/ML, PEN SQ-INSULIN SCH (08:00)
[2018-05-11] MEDS: SODIUM BICARBONATE 650 MG TABLET PO SCH ×3 (08:01→21:00)
[2018-05-11] MEDS: AMLODIPINE 10 MG TAB PO SCH (08:01)
[2018-05-11] MEDS: PANTOPROZOLE 40MG TABLET PO SCH ×2 (08:01→16:50)
[2018-05-11 14:35] VITALS: BP 132/63
[2018-05-11] MEDS ORDERED: WARFARIN 7.5 MG TABLET PO-COUM ONE (18:00)
[2018-05-11 20:16] VITALS: BP 139/62
[2018-05-11] MEDS: ATORVASTATIN 40 MG TABLET PO SCH (20:21)
[2018-05-11] MEDS: IRON SUCROSE COMPLEX 100MG/5ML IV SCH (20:33)
[2018-05-11 23:01] LABS: MICROSCOPIC INDICATED
[2018-05-12 01:05] VITALS: BP 131/65
[2018-05-12 05:34] LABS: CALCIUM 8.6 mg/dL (8.5-10.1); CHLORIDE 114 mmol/L (98-107)
[2018-05-12 05:37] LABS: INTERNATIONAL NORMALIZED RATIO 2.88 (0.93-1.1); PROTHROMBIN TIME 29.3 Seconds (9.6-11.5)
[2018-05-12 05:40] LABS: ALANINE AMINOTRANSFERASE 41 U/L (12-78); ALBUMIN 2.4 g/dL (3.4-5.0); ALKALINE PHOSPHATASE 217 U/L (45-117); ANION GAP 10 mmol/L (5-15); BILIRUBIN,TOTAL 0.6 mg/dL (0.2-1.0); TOTAL PROTEIN 5.8 g/dL (6.4-8.2)
[2018-05-12] MEDS: ASPIRIN 81 MG TABLET EC PO SCH (06:12)
[2018-05-12] MEDS: CARVEDILOL 12.5 MG TABLET PO SCH (06:12)
[2018-05-12 06:47] LABS: BASOPHILS # (AUTO) 0.04 x10^3/uL (0-0.1); BASOPHILS % (AUTO) 0 % (0-1); EOSINOPHILS # (AUTO) 0.28 x10^3/uL (0-0.4); EOSINOPHILS % (AUTO) 2 % (1-7); LYMPHOCYTES # (AUTO) 1.28 x10^3/uL (1-3.4); LYMPHOCYTES % (AUTO) 10 % (22-44); MD SCAN; MEAN CORPUSCULAR HEMOGLOBIN 29.9 pg (27.0-34.8); MEAN CORPUSCULAR HGB CONC 33.6 g/dL (32.4-35.8); MEAN CORPUSCULAR VOLUME 89.1 fL (80-100); MEAN PLATELET VOLUME 10.9 fL (7.4-10.4); MONOCYTES # (AUTO) 0.77 x10^3/uL (0.2-0.8); MONOCYTES % (AUTO) 6 % (2-9); NEUTROPHILS # (AUTO) 10.55 x10^3/uL (1.8-6.8); NEUTROPHILS % (AUTO) 82 % (42-75); PLATELET COUNT 294 x10^3/uL (130-400); RED BLOOD COUNT 2.61 x10^6/uL (3.82-5.3); RED CELL DISTRIBUTION WIDTH 16.3 % (9.6-15.2)
[2018-05-12 07:18] VITALS: BP 135/66
[2018-05-12] MEDS: INSULIN LISPRO 100 UNITS/ML, PEN SQ-INSULIN SCH ×4 (08:54→21:04)
[2018-05-12] MEDS: PANTOPROZOLE 40MG TABLET PO SCH ×2 (08:54→16:09)
[2018-05-12] MEDS: AMLODIPINE 10 MG TAB PO SCH (08:55)
[2018-05-12] MEDS: SENNA/DOCUSATE TABLET PO SCH (08:55)
[2018-05-12] MEDS: SODIUM BICARBONATE 650 MG TABLET PO SCH (08:55)
[2018-05-12] MEDS: ERGOCALCIFEROL 50,000 UNIT CAPSULE PO SCH (08:55)
[2018-05-12] MEDS: INSULIN GLARGINE 100 UNITS/ML, PEN SQ-INSULIN SCH (08:55)
--- NOTE | 2018-05-12 10:15 | NUR ---
Green Activity Sheet Posted and reviewed with patient. 1. get up in chair at least 3'xs a day with meals. 2. Ambulate at least 3x's a day 3. B LE supine exercises: ankle pumps, glut sets, quad sets, heel slides B LE seated exercises: marching, knee extension, ankle pumps
[2018-05-12 12:18] VITALS: BP 125/67
[2018-05-12] MEDS: FUROSEMIDE 40 MG/4 ML IV SCH ×2 (13:11→16:09)
[2018-05-12] MEDS: CARVEDILOL 6.25 MG TABLET PO SCH (16:08)
[2018-05-12] MEDS ORDERED: FUROSEMIDE 40 MG/4 ML IV SCH (17:00)
[2018-05-12] MEDS ORDERED: WARFARIN 7.5 MG TABLET PO-COUM ONE (18:00)
[2018-05-12] MEDS: ATORVASTATIN 40 MG TABLET PO SCH (20:16)
[2018-05-12] MEDS: IRON SUCROSE COMPLEX 100MG/5ML IV SCH (20:16)
[2018-05-12 20:50] VITALS: BP 120/64
[2018-05-13 03:18] VITALS: BP 110/54
[2018-05-13] MEDS: CARVEDILOL 6.25 MG TABLET PO SCH ×2 (06:14→15:59)
[2018-05-13] MEDS: ASPIRIN 81 MG TABLET EC PO SCH (06:14)
[2018-05-13 06:17] VITALS: BP 124/63
[2018-05-13 06:46] LABS: MEAN CORPUSCULAR HEMOGLOBIN 30.6 pg (27.0-34.8); MEAN CORPUSCULAR HGB CONC 34.3 g/dL (32.4-35.8); MEAN CORPUSCULAR VOLUME 89.2 fL (80-100); RED BLOOD COUNT 2.48 x10^6/uL (3.82-5.3); RED CELL DISTRIBUTION WIDTH 16.6 % (9.6-15.2)
[2018-05-13 06:58] LABS: ALBUMIN 2.3 g/dL (3.4-5.0); ANION GAP 10 mmol/L (5-15); CALCIUM 8.9 mg/dL (8.5-10.1); CHLORIDE 112 mmol/L (98-107); CREATININE 3.67 mg/dL (0.55-1.02)
[2018-05-13 07:10] LABS: MEAN PLATELET VOLUME 11.7 fL (7.4-10.4); PLATELET COUNT 274 x10^3/uL (130-400)
[2018-05-13 07:11] LABS: BASOPHILS # (AUTO) 0.08 x10^3/uL (0-0.1); BASOPHILS % (AUTO) 1 % (0-1); EOSINOPHILS # (AUTO) 0.32 x10^3/uL (0-0.4); EOSINOPHILS % (AUTO) 3 % (1-7); LYMPHOCYTES % (AUTO) 12 % (22-44); MD SCAN; MONOCYTES # (AUTO) 0.96 x10^3/uL (0.2-0.8); MONOCYTES % (AUTO) 9 % (2-9); NEUTROPHILS # (AUTO) 8.58 x10^3/uL (1.8-6.8); NEUTROPHILS % (AUTO) 76 % (42-75)
[2018-05-13 07:14] LABS: PROTHROMBIN TIME 50.4 Seconds (9.6-11.5)
[2018-05-13 07:53] VITALS: BP 122/59
[2018-05-13] MEDS: INSULIN LISPRO 100 UNITS/ML, PEN SQ-INSULIN SCH ×4 (08:04→20:27)
[2018-05-13] MEDS: INSULIN GLARGINE 100 UNITS/ML, PEN SQ-INSULIN SCH (08:16)
[2018-05-13] MEDS: FUROSEMIDE 40 MG/4 ML IV SCH (08:17)
[2018-05-13] MEDS: SENNA/DOCUSATE TABLET PO SCH (08:17)
[2018-05-13] MEDS: PANTOPROZOLE 40MG TABLET PO SCH ×2 (08:20→15:57)
[2018-05-13] MEDS: AMLODIPINE 10 MG TAB PO SCH (08:22)
[2018-05-13] MEDS ORDERED: PHARMACY MAY ADJ FOR RENAL FX MC PRN (11:30)
[2018-05-13] MEDS: PHYTONADIONE 10 MG/ML, 1ML SQ SCH (11:57)
[2018-05-13 13:10] VITALS: BP 126/66
[2018-05-13] MEDS: ACETAMINOPHEN 325 MG TABLET PO PRN ×2 (15:57→20:21)
[2018-05-13] MEDS ORDERED: FUROSEMIDE 40 MG/4 ML IV SCH (17:00)
[2018-05-13 17:11] LABS: ANA SCREEN NEGATIVE (Negative)
[2018-05-13 19:16] VITALS: BP 130/69
[2018-05-13] MEDS: ATORVASTATIN 40 MG TABLET PO SCH (20:21)
[2018-05-14] VITALS (17 sets, daily range): BP systolic 125–149; BP diastolic 57–69
[2018-05-14] MEDS: DIPHENHYDRAMINE 25 MG CAPSULE PO PRN (01:18)
[2018-05-14] MEDS: ACETAMINOPHEN 325 MG TABLET PO PRN (03:24)
[2018-05-14] MEDS: CARVEDILOL 6.25 MG TABLET PO SCH ×2 (06:00→17:05)
[2018-05-14] MEDS: ASPIRIN 81 MG TABLET EC PO SCH (06:00)
[2018-05-14 07:23] LABS: MEAN CORPUSCULAR HEMOGLOBIN 30.7 pg (27.0-34.8); MEAN CORPUSCULAR HGB CONC 34.4 g/dL (32.4-35.8); MEAN CORPUSCULAR VOLUME 89.5 fL (80-100); MEAN PLATELET VOLUME 11.4 fL (7.4-10.4); PLATELET COUNT 257 x10^3/uL (130-400); RED BLOOD COUNT 2.28 x10^6/uL (3.82-5.3); RED CELL DISTRIBUTION WIDTH 16.4 % (9.6-15.2)
[2018-05-14 07:25] LABS: ALBUMIN 2.6 g/dL (3.4-5.0); ANION GAP 10 mmol/L (5-15); CALCIUM 8.4 mg/dL (8.5-10.1); CHLORIDE 112 mmol/L (98-107); CREATININE 3.54 mg/dL (0.55-1.02)
[2018-05-14 07:31] LABS: BASOPHILS # (AUTO) 0.02 x10^3/uL (0-0.1); BASOPHILS % (AUTO) 0 % (0-1); EOSINOPHILS # (AUTO) 0.35 x10^3/uL (0-0.4); EOSINOPHILS % (AUTO) 4 % (1-7); LYMPHOCYTES # (AUTO) 1.42 x10^3/uL (1-3.4); LYMPHOCYTES % (AUTO) 15 % (22-44); MD SCAN; MONOCYTES # (AUTO) 0.78 x10^3/uL (0.2-0.8); MONOCYTES % (AUTO) 8 % (2-9); NEUTROPHILS # (AUTO) 6.91 x10^3/uL (1.8-6.8); NEUTROPHILS % (AUTO) 73 % (42-75)
[2018-05-14 07:35] LABS: INTERNATIONAL NORMALIZED RATIO 1.96 (0.93-1.1); PROTHROMBIN TIME 20.1 Seconds (9.6-11.5)
[2018-05-14] MEDS: PANTOPROZOLE 40MG TABLET PO SCH ×2 (07:41→17:05)
[2018-05-14] MEDS: INSULIN LISPRO 100 UNITS/ML, PEN SQ-INSULIN SCH ×4 (07:41→21:21)
[2018-05-14] MEDS: AMLODIPINE 10 MG TAB PO SCH (07:42)
[2018-05-14] MEDS: SENNA/DOCUSATE TABLET PO SCH (07:42)
[2018-05-14] MEDS: INSULIN GLARGINE 100 UNITS/ML, PEN SQ-INSULIN SCH (09:00)
[2018-05-14] MEDS ORDERED: TORSEMIDE 20 MG TABLET PO SCH (09:00)
[2018-05-14] MEDS: PHYTONADIONE 10 MG/ML, 1ML SQ SCH (10:50)
[2018-05-14 14:19] LABS: INTERNATIONAL NORMALIZED RATIO 1.52 (0.93-1.1); PROTHROMBIN TIME 15.7 Seconds (9.6-11.5)
[2018-05-14] MEDS: TORSEMIDE 20 MG TABLET PO SCH (17:05)
[2018-05-14] MEDS: ATORVASTATIN 40 MG TABLET PO SCH (21:07)
[2018-05-15 02:00] VITALS: BP 155/67
[2018-05-15 05:16] LABS: INTERNATIONAL NORMALIZED RATIO 1.45 (0.93-1.1)
[2018-05-15 05:17] LABS: ALBUMIN 2.7 g/dL (3.4-5.0); ANION GAP 10 mmol/L (5-15); CALCIUM 8.8 mg/dL (8.5-10.1); CHLORIDE 111 mmol/L (98-107)
[2018-05-15 05:20] LABS: ALANINE AMINOTRANSFERASE 197 U/L (12-78); ALKALINE PHOSPHATASE 445 U/L (45-117); BILIRUBIN,TOTAL 0.6 mg/dL (0.2-1.0); CREATININE 3.59 mg/dL (0.55-1.02); TOTAL PROTEIN 6.1 g/dL (6.4-8.2)
[2018-05-15 05:35] LABS: MEAN CORPUSCULAR HEMOGLOBIN 30.6 pg (27.0-34.8); MEAN CORPUSCULAR HGB CONC 33.7 g/dL (32.4-35.8); MEAN CORPUSCULAR VOLUME 90.9 fL (80-100); MEAN PLATELET VOLUME 11.9 fL (7.4-10.4); PLATELET COUNT 296 x10^3/uL (130-400); RED BLOOD COUNT 2.53 x10^6/uL (3.82-5.3); RED CELL DISTRIBUTION WIDTH 16.5 % (9.6-15.2)
[2018-05-15] MEDS: ASPIRIN 81 MG TABLET EC PO SCH (06:00)
[2018-05-15 06:04] LABS: BASOPHILS # (AUTO) 0.04 x10^3/uL (0-0.1); BASOPHILS % (AUTO) 1 % (0-1); EOSINOPHILS # (AUTO) 0.45 x10^3/uL (0-0.4); EOSINOPHILS % (AUTO) 5 % (1-7); LYMPHOCYTES # (AUTO) 1.16 x10^3/uL (1-3.4); LYMPHOCYTES % (AUTO) 12 % (22-44); MD SCAN; MONOCYTES # (AUTO) 0.56 x10^3/uL (0.2-0.8); MONOCYTES % (AUTO) 6 % (2-9); NEUTROPHILS # (AUTO) 7.42 x10^3/uL (1.8-6.8); NEUTROPHILS % (AUTO) 77 % (42-75)
[2018-05-15 06:50] VITALS: BP 157/71
[2018-05-15] MEDS: CARVEDILOL 6.25 MG TABLET PO SCH ×2 (06:50→17:32)
[2018-05-15] MEDS: INSULIN LISPRO 100 UNITS/ML, PEN SQ-INSULIN SCH ×4 (08:11→19:49)
[2018-05-15] MEDS: PHYTONADIONE 10 MG/ML, 1ML SQ SCH (08:12)
[2018-05-15] MEDS: INSULIN GLARGINE 100 UNITS/ML, PEN SQ-INSULIN SCH (08:12)
[2018-05-15] MEDS: AMLODIPINE 10 MG TAB PO SCH (08:14)
[2018-05-15] MEDS: PANTOPROZOLE 40MG TABLET PO SCH ×2 (08:14→17:32)
[2018-05-15] MEDS: TORSEMIDE 20 MG TABLET PO SCH (08:14)
[2018-05-15] MEDS: SENNA/DOCUSATE TABLET PO SCH (08:15)
[2018-05-15 14:50] VITALS: BP 130/58
[2018-05-15] MEDS ORDERED: GOLYTELY 4,000ML ORAL.SOL PO ONE (17:00)
[2018-05-15 18:40] VITALS: BP 158/71
[2018-05-15] MEDS: ATORVASTATIN 40 MG TABLET PO SCH (19:48)
[2018-05-16 01:26] VITALS: BP 155/67
[2018-05-16] MEDS: ASPIRIN 81 MG TABLET EC PO SCH (04:52)
[2018-05-16] MEDS: CARVEDILOL 6.25 MG TABLET PO SCH ×2 (05:28→18:10)
[2018-05-16 05:37] LABS: BASOPHILS # (AUTO) 0.03 x10^3/uL (0-0.1); BASOPHILS % (AUTO) 0 % (0-1); EOSINOPHILS # (AUTO) 0.26 x10^3/uL (0-0.4); EOSINOPHILS % (AUTO) 2 % (1-7); LYMPHOCYTES # (AUTO) 1.56 x10^3/uL (1-3.4); LYMPHOCYTES % (AUTO) 13 % (22-44); MD NO; MEAN CORPUSCULAR HEMOGLOBIN 30.5 pg (27.0-34.8); MEAN CORPUSCULAR HGB CONC 33.3 g/dL (32.4-35.8); MEAN CORPUSCULAR VOLUME 91.4 fL (80-100); MEAN PLATELET VOLUME 10.9 fL (7.4-10.4); MONOCYTES # (AUTO) 0.61 x10^3/uL (0.2-0.8); MONOCYTES % (AUTO) 5 % (2-9); NEUTROPHILS # (AUTO) 9.29 x10^3/uL (1.8-6.8); NEUTROPHILS % (AUTO) 79 % (42-75); PLATELET COUNT 284 x10^3/uL (130-400); RED BLOOD COUNT 2.63 x10^6/uL (3.82-5.3); RED CELL DISTRIBUTION WIDTH 16.4 % (9.6-15.2)
[2018-05-16 05:41] LABS: INTERNATIONAL NORMALIZED RATIO 1.25 (0.93-1.1); PROTHROMBIN TIME 12.9 Seconds (9.6-11.5)
[2018-05-16 05:47] LABS: ALBUMIN 2.9 g/dL (3.4-5.0); ANION GAP 12 mmol/L (5-15); CALCIUM 9.2 mg/dL (8.5-10.1); CHLORIDE 111 mmol/L (98-107)
[2018-05-16 05:53] LABS: ALANINE AMINOTRANSFERASE 147 U/L (12-78); ALKALINE PHOSPHATASE 403 U/L (45-117); BILIRUBIN,TOTAL 0.8 mg/dL (0.2-1.0); CREATININE 3.17 mg/dL (0.55-1.02); TOTAL PROTEIN 6.3 g/dL (6.4-8.2)
[2018-05-16] MEDS: INSULIN LISPRO 100 UNITS/ML, PEN SQ-INSULIN SCH ×4 (07:00→20:50)
[2018-05-16 07:16] VITALS: BP 153/63
[2018-05-16] MEDS: PANTOPROZOLE 40MG TABLET PO SCH ×2 (07:30→11:17)
[2018-05-16] MEDS: SENNA/DOCUSATE TABLET PO SCH ×2 (07:53→10:35)
[2018-05-16] MEDS: AMLODIPINE 5 MG TABLET PO SCH ×2 (07:53→11:16)
[2018-05-16] MEDS: TORSEMIDE 20 MG TABLET PO SCH ×2 (07:53→11:16)
[2018-05-16] MEDS: INSULIN GLARGINE 100 UNITS/ML, PEN SQ-INSULIN SCH ×2 (07:54→11:16)
[2018-05-16] MEDS: PHYTONADIONE 10 MG/ML, 1ML SQ SCH (07:54)
[2018-05-16] MEDS ORDERED: PROPOFOL 10 MG/ML, 20ML ONE (07:56)
[2018-05-16] MEDS ORDERED: DIAZEPAM 5 MG/ML, 2ML IVPush PRN (09:00)
[2018-05-16] MEDS ORDERED: LABETALOL 5MG/ML, 20ML IV PRN (09:00)
[2018-05-16] MEDS ORDERED: MEPERIDINE/PF 25MG/0.5ML IVPush PRN (09:00)
[2018-05-16] MEDS ORDERED: HALOPERIDOL 5 MG/ML IV PRN (09:00)
[2018-05-16] MEDS ORDERED: EPHEDRINE 50 MG/ML, 1ML IVPush PRN (09:00)
[2018-05-16] MEDS ORDERED: PROMETHAZINE 25 MG/ML, 1ML IV PRN (09:00)
[2018-05-16] MEDS ORDERED: OXYcodone 5 MG/5 ML ORAL.SOL UDC PO PRN (09:00)
[2018-05-16] MEDS ORDERED: PROMETHAZINE 12.5 MG SUPP PR PRN (09:00)
[2018-05-16] MEDS ORDERED: ONDANSETRON ODT 8 MG PO PRN (09:00)
[2018-05-16] MEDS ORDERED: MORPHINE SULFATE 4 MG/ML, 1ML IVPush PRN (09:00)
[2018-05-16] MEDS ORDERED: MIDAZOLAM 1 MG/ML, 2ML IV PRN (09:00)
[2018-05-16] MEDS ORDERED: hydrALAzine 20 MG/ML, 1ML IV PRN (09:00)
[2018-05-16] MEDS ORDERED: ALBUTEROL SULFATE 2.5 MG/3 ML NPPB PRN (09:00)
[2018-05-16] MEDS ORDERED: HYDROmorphone 1 MG/ML, 1ML IV PRN (09:00)
[2018-05-16] MEDS ORDERED: FENTANYL PF 100 MCG/2ML IV PRN (09:00)
[2018-05-16] MEDS ORDERED: ONDANSETRON 2MG/ML, 2ML IV PRN (09:00)
[2018-05-16 12:43] VITALS: BP 139/69
[2018-05-16] MEDS ORDERED: MORPHINE SULFATE 4 MG/ML, 1ML IVPush ONE (17:00)
[2018-05-16 19:20] VITALS: BP 153/72
[2018-05-16] MEDS: ATORVASTATIN 40 MG TABLET PO SCH (20:50)
[2018-05-17 02:54] VITALS: BP 140/67
[2018-05-17 05:20] VITALS: BP 143/68
[2018-05-17] MEDS: ASPIRIN 81 MG TABLET EC PO SCH (05:24)
[2018-05-17] MEDS: CARVEDILOL 6.25 MG TABLET PO SCH ×2 (05:25→18:09)
[2018-05-17 05:49] LABS: BASOPHILS # (AUTO) 0.03 x10^3/uL (0-0.1); BASOPHILS % (AUTO) 0 % (0-1); EOSINOPHILS # (AUTO) 0.21 x10^3/uL (0-0.4); EOSINOPHILS % (AUTO) 2 % (1-7); LYMPHOCYTES # (AUTO) 0.93 x10^3/uL (1-3.4); LYMPHOCYTES % (AUTO) 9 % (22-44); MD NO; MEAN CORPUSCULAR HEMOGLOBIN 30.3 pg (27.0-34.8); MEAN CORPUSCULAR HGB CONC 33.2 g/dL (32.4-35.8); MEAN CORPUSCULAR VOLUME 91.1 fL (80-100); MEAN PLATELET VOLUME 10.8 fL (7.4-10.4); MONOCYTES # (AUTO) 0.53 x10^3/uL (0.2-0.8); MONOCYTES % (AUTO) 5 % (2-9); NEUTROPHILS # (AUTO) 8.85 x10^3/uL (1.8-6.8); NEUTROPHILS % (AUTO) 84 % (42-75); PLATELET COUNT 282 x10^3/uL (130-400); RED BLOOD COUNT 2.57 x10^6/uL (3.82-5.3); RED CELL DISTRIBUTION WIDTH 17.1 % (9.6-15.2)
[2018-05-17 05:54] LABS: INTERNATIONAL NORMALIZED RATIO 1.22 (0.93-1.1); PROTHROMBIN TIME 12.8 Seconds (9.6-11.5)
[2018-05-17 06:02] LABS: ALBUMIN 2.6 g/dL (3.4-5.0); ANION GAP 8 mmol/L (5-15); CALCIUM 8.9 mg/dL (8.5-10.1); CHLORIDE 112 mmol/L (98-107)
[2018-05-17 06:04] LABS: ALANINE AMINOTRANSFERASE 106 U/L (12-78); ALKALINE PHOSPHATASE 349 U/L (45-117); BILIRUBIN,TOTAL 0.6 mg/dL (0.2-1.0); CREATININE 3.22 mg/dL (0.55-1.02); TOTAL PROTEIN 5.8 g/dL (6.4-8.2)
[2018-05-17] MEDS: INSULIN LISPRO 100 UNITS/ML, PEN SQ-INSULIN SCH ×4 (07:00→21:58)
[2018-05-17 07:27] VITALS: BP 147/65
[2018-05-17] MEDS: PANTOPROZOLE 40MG TABLET PO SCH ×2 (07:30→16:45)
[2018-05-17] MEDS ORDERED: LIDOCAINE-MPF 1%, 5ML ONE (09:50)
[2018-05-17] MEDS ORDERED: MIDAZOLAM 1 MG/ML, 5ML ONE ×2 (09:53)
[2018-05-17] MEDS ORDERED: FLUMAZENIL 0.1 MG/1 ML, 5ML ONE (09:53)
[2018-05-17] MEDS ORDERED: FENTANYL PF 100 MCG/2ML ONE (09:53)
[2018-05-17] MEDS ORDERED: NALOXONE 1 MG/ML, 2ML ONE (09:54)
[2018-05-17 10:48] VITALS: BP 138/65
[2018-05-17] MEDS: INSULIN GLARGINE 100 UNITS/ML, PEN SQ-INSULIN SCH (10:59)
[2018-05-17 12:34] VITALS: BP 144/73
[2018-05-17 19:06] VITALS: BP 163/65
[2018-05-17] MEDS: ATORVASTATIN 40 MG TABLET PO SCH (21:57)
[2018-05-18] VITALS (10 sets, daily range): BP systolic 135–156; BP diastolic 62–89
[2018-05-18 05:14] LABS: MEAN CORPUSCULAR HGB CONC 33.7 g/dL (32.4-35.8); MEAN CORPUSCULAR VOLUME 92.1 fL (80-100); MEAN PLATELET VOLUME 10.9 fL (7.4-10.4); PLATELET COUNT 261 x10^3/uL (130-400); RED CELL DISTRIBUTION WIDTH 17.6 % (9.6-15.2)
[2018-05-18 05:16] LABS: INTERNATIONAL NORMALIZED RATIO 1.16 (0.93-1.1); PROTHROMBIN TIME 12.2 Seconds (9.6-11.5)
[2018-05-18] MEDS: CARVEDILOL 6.25 MG TABLET PO SCH ×2 (05:19→18:34)
[2018-05-18] MEDS: ASPIRIN 81 MG TABLET EC PO SCH (05:19)
[2018-05-18 05:20] LABS: ALANINE AMINOTRANSFERASE 86 U/L (12-78); ALBUMIN 2.6 g/dL (3.4-5.0); ANION GAP 9 mmol/L (5-15); CALCIUM 8.2 mg/dL (8.5-10.1); CHLORIDE 113 mmol/L (98-107)
[2018-05-18 05:22] LABS: ALKALINE PHOSPHATASE 325 U/L (45-117); BILIRUBIN,TOTAL 0.6 mg/dL (0.2-1.0); TOTAL PROTEIN 5.9 g/dL (6.4-8.2)
[2018-05-18 05:37] LABS: BASOPHILS # (AUTO) 0.03 x10^3/uL (0-0.1); BASOPHILS % (AUTO) 0 % (0-1); EOSINOPHILS # (AUTO) 0.28 x10^3/uL (0-0.4); EOSINOPHILS % (AUTO) 3 % (1-7); LYMPHOCYTES # (AUTO) 1.28 x10^3/uL (1-3.4); LYMPHOCYTES % (AUTO) 13 % (22-44); MD SCAN; MONOCYTES # (AUTO) 0.55 x10^3/uL (0.2-0.8); MONOCYTES % (AUTO) 6 % (2-9); NEUTROPHILS # (AUTO) 7.69 x10^3/uL (1.8-6.8); NEUTROPHILS % (AUTO) 78 % (42-75)
[2018-05-18] MEDS: INSULIN LISPRO 100 UNITS/ML, PEN SQ-INSULIN SCH ×4 (07:00→20:27)
[2018-05-18] MEDS: TORSEMIDE 20 MG TABLET PO SCH (07:38)
[2018-05-18] MEDS: PANTOPROZOLE 40MG TABLET PO SCH ×2 (07:38→16:11)
[2018-05-18] MEDS: AMLODIPINE 5 MG TABLET PO SCH (07:38)
[2018-05-18] MEDS: SENNA/DOCUSATE TABLET PO SCH (07:40)
[2018-05-18] MEDS: INSULIN GLARGINE 100 UNITS/ML, PEN SQ-INSULIN SCH (07:42)
[2018-05-18] MEDS: ATORVASTATIN 40 MG TABLET PO SCH (20:27)
[2018-05-19] VITALS (7 sets, daily range): BP systolic 139–166; BP diastolic 71–86
[2018-05-19] MEDS: ASPIRIN 81 MG TABLET EC PO SCH (05:34)
[2018-05-19] MEDS: CARVEDILOL 6.25 MG TABLET PO SCH ×2 (05:34→16:56)
[2018-05-19 06:19] LABS: INTERNATIONAL NORMALIZED RATIO 1.12 (0.93-1.1); PROTHROMBIN TIME 11.8 Seconds (9.6-11.5)
[2018-05-19 06:23] LABS: CHLORIDE 113 mmol/L (98-107)
[2018-05-19 06:34] LABS: ALANINE AMINOTRANSFERASE 84 U/L (12-78); ALBUMIN 2.7 g/dL (3.4-5.0); ALKALINE PHOSPHATASE 387 U/L (45-117); ANION GAP 8 mmol/L (5-15); BILIRUBIN,TOTAL 2.2 mg/dL (0.2-1.0); CALCIUM 8.8 mg/dL (8.5-10.1); CREATININE 3.01 mg/dL (0.55-1.02)
[2018-05-19] MEDS: INSULIN LISPRO 100 UNITS/ML, PEN SQ-INSULIN SCH ×3 (07:00→15:31)
[2018-05-19 07:01] LABS: BASOPHILS # (AUTO) 0.05 x10^3/uL (0-0.1); BASOPHILS % (AUTO) 0 % (0-1); EOSINOPHILS % (AUTO) 3 % (1-7); LYMPHOCYTES # (AUTO) 1.38 x10^3/uL (1-3.4); LYMPHOCYTES % (AUTO) 12 % (22-44); MD SCAN; MEAN CORPUSCULAR HEMOGLOBIN 30.6 pg (27.0-34.8); MEAN CORPUSCULAR HGB CONC 34.3 g/dL (32.4-35.8); MEAN CORPUSCULAR VOLUME 89.4 fL (80-100); MEAN PLATELET VOLUME 11.2 fL (7.4-10.4); MONOCYTES # (AUTO) 0.71 x10^3/uL (0.2-0.8); MONOCYTES % (AUTO) 6 % (2-9); NEUTROPHILS # (AUTO) 8.77 x10^3/uL (1.8-6.8); NEUTROPHILS % (AUTO) 78 % (42-75); PLATELET COUNT 243 x10^3/uL (130-400); RED BLOOD COUNT 3.26 x10^6/uL (3.82-5.3); RED CELL DISTRIBUTION WIDTH 17.6 % (9.6-15.2)
[2018-05-19] MEDS: SENNA/DOCUSATE TABLET PO SCH (08:19)
[2018-05-19] MEDS: INSULIN GLARGINE 100 UNITS/ML, PEN SQ-INSULIN SCH (08:27)
[2018-05-19] MEDS ORDERED: INSULIN GLARGINE 100 UNITS/ML, PEN SQ-INSULIN ONE (08:30)
[2018-05-19] MEDS: AMLODIPINE 5 MG TABLET PO SCH (08:44)
[2018-05-19] MEDS: PANTOPROZOLE 40MG TABLET PO SCH ×2 (08:45→16:56)
[2018-05-19] MEDS: TORSEMIDE 20 MG TABLET PO SCH (08:45)
[2018-05-19] MEDS: ERGOCALCIFEROL 50,000 UNIT CAPSULE PO SCH (08:46)
[2018-05-19] MEDS ORDERED: BUPIVACAINE/PF 0.5% ONE (11:13)
[2018-05-19] MEDS ORDERED: ACETAMINOPHEN 500 MG TABLET ONE (11:29)
[2018-05-19] MEDS ORDERED: ACETAMINOPHEN 500 MG TABLET PO ONE (11:30)
[2018-05-19] MEDS ORDERED: GABAPENTIN 300 MG CAPSULE PO ONE (11:30)
[2018-05-19] MEDS ORDERED: SCOPOLAMINE PATCH, 1.5MG PATCH.TD72 TD ONE (11:30)
[2018-05-19] MEDS ORDERED: HEPARIN 5,000 UNITS/ML, 1ML SQ SCH (12:00)
[2018-05-19] MEDS ORDERED: GLYCOPYRROLATE 0.2MG/1ML, 5ML ONE (12:06)
[2018-05-19] MEDS ORDERED: SUCCINYLCHOLINE 20 MG/ML, 10ML ONE (12:06)
[2018-05-19] MEDS ORDERED: ROCURONIUM 10 MG/ML,10ML ONE (12:06)
[2018-05-19] MEDS ORDERED: NEOSTIGMINE 1 MG/ML, 10ML ONE (12:06)
[2018-05-19] MEDS ORDERED: PROPOFOL 10 MG/ML, 20ML ONE (12:06)
[2018-05-19] MEDS ORDERED: CEFOTETAN 1 GM ONE (12:06)
[2018-05-19] MEDS: ACETAMINOPHEN 500 MG TABLET PO SCH ×2 (17:26→21:55)
[2018-05-19] MEDS: D5%-0.45NACL+KCL 20MEQ 1,000 ML IV SCH (17:37)
[2018-05-19] MEDS ORDERED: INSULIN ENTER ORDER(S) IF CHECKED MC PRN (18:00)
[2018-05-19] MEDS: INSULIN REGULAR, HUMAN 100 UNIT/ML 3ML VIAL LOW DOSE SS SQ-INSULIN SCH (21:42)
[2018-05-19] MEDS: ATORVASTATIN 40 MG TABLET PO SCH (21:54)
[2018-05-19] MEDS: IBUPROFEN 800 MG TABLET PO SCH (21:56)
[2018-05-20 02:40] VITALS: BP 157/71
[2018-05-20] MEDS: ACETAMINOPHEN 500 MG TABLET PO SCH ×3 (04:20→16:35)
[2018-05-20 05:28] LABS: BASOPHILS # (AUTO) 0.01 x10^3/uL (0-0.1); BASOPHILS % (AUTO) 0 % (0-1); EOSINOPHILS % (AUTO) 2 % (1-7); LYMPHOCYTES # (AUTO) 0.81 x10^3/uL (1-3.4); LYMPHOCYTES % (AUTO) 7 % (22-44); MD NO; MEAN CORPUSCULAR HEMOGLOBIN 30.7 pg (27.0-34.8); MEAN CORPUSCULAR VOLUME 90.2 fL (80-100); MEAN PLATELET VOLUME 10.5 fL (7.4-10.4); MONOCYTES # (AUTO) 0.46 x10^3/uL (0.2-0.8); MONOCYTES % (AUTO) 4 % (2-9); NEUTROPHILS # (AUTO) 9.78 x10^3/uL (1.8-6.8); NEUTROPHILS % (AUTO) 87 % (42-75); PLATELET COUNT 198 x10^3/uL (130-400); RED BLOOD COUNT 3.04 x10^6/uL (3.82-5.3); RED CELL DISTRIBUTION WIDTH 16.8 % (9.6-15.2)
[2018-05-20 05:37] LABS: INTERNATIONAL NORMALIZED RATIO 1.15 (0.93-1.1); PROTHROMBIN TIME 12.1 Seconds (9.6-11.5)
[2018-05-20 05:40] LABS: ALANINE AMINOTRANSFERASE 66 U/L (12-78); ALBUMIN 2.3 g/dL (3.4-5.0); ANION GAP 9 mmol/L (5-15); CALCIUM 8.1 mg/dL (8.5-10.1); CHLORIDE 113 mmol/L (98-107); CREATININE 2.81 mg/dL (0.55-1.02)
[2018-05-20 05:42] LABS: ALKALINE PHOSPHATASE 325 U/L (45-117); BILIRUBIN,TOTAL 1.2 mg/dL (0.2-1.0); TOTAL PROTEIN 5.6 g/dL (6.4-8.2)
[2018-05-20] MEDS: CARVEDILOL 6.25 MG TABLET PO SCH ×2 (06:23→18:12)
[2018-05-20 07:02] VITALS: BP 154/73
[2018-05-20] MEDS: D5%-0.45NACL+KCL 20MEQ 1,000 ML IV SCH ×2 (08:51→22:36)
[2018-05-20] MEDS: IBUPROFEN 800 MG TABLET PO SCH ×3 (08:51→21:59)
[2018-05-20] MEDS: AMLODIPINE 5 MG TABLET PO SCH (08:52)
[2018-05-20] MEDS: SENNA/DOCUSATE TABLET PO SCH (08:52)
[2018-05-20] MEDS: INSULIN GLARGINE 100 UNITS/ML, PEN SQ-INSULIN SCH (08:52)
[2018-05-20] MEDS: PANTOPROZOLE 40MG TABLET PO SCH ×2 (08:52→16:35)
[2018-05-20] MEDS: INSULIN REGULAR, HUMAN 100 UNIT/ML 3ML VIAL LOW DOSE SS SQ-INSULIN SCH ×4 (08:53→21:56)
[2018-05-20] MEDS: HEPARIN 5,000 UNITS/ML, 1ML SQ SCH ×2 (12:52→21:45)
[2018-05-20 13:00] VITALS: BP 143/61
[2018-05-20 18:14] VITALS: BP 139/70
[2018-05-20 19:25] VITALS: BP 146/61
[2018-05-20] MEDS: ATORVASTATIN 40 MG TABLET PO SCH (21:46)
[2018-05-21] MEDS: ACETAMINOPHEN 500 MG TABLET PO SCH ×4 (00:52→17:23)
[2018-05-21 00:53] VITALS: BP 159/68
[2018-05-21 06:02] LABS: BASOPHILS # (AUTO) 0.02 x10^3/uL (0-0.1); BASOPHILS % (AUTO) 0 % (0-1); EOSINOPHILS # (AUTO) 0.48 x10^3/uL (0-0.4); EOSINOPHILS % (AUTO) 5 % (1-7); LYMPHOCYTES # (AUTO) 1.18 x10^3/uL (1-3.4); LYMPHOCYTES % (AUTO) 11 % (22-44); MD NO; MEAN CORPUSCULAR HEMOGLOBIN 30.9 pg (27.0-34.8); MEAN CORPUSCULAR HGB CONC 34.1 g/dL (32.4-35.8); MEAN CORPUSCULAR VOLUME 90.6 fL (80-100); MEAN PLATELET VOLUME 10.8 fL (7.4-10.4); MONOCYTES # (AUTO) 0.58 x10^3/uL (0.2-0.8); MONOCYTES % (AUTO) 6 % (2-9); NEUTROPHILS # (AUTO) 8.24 x10^3/uL (1.8-6.8); NEUTROPHILS % (AUTO) 78 % (42-75); PLATELET COUNT 202 x10^3/uL (130-400); RED BLOOD COUNT 2.96 x10^6/uL (3.82-5.3); RED CELL DISTRIBUTION WIDTH 16.9 % (9.6-15.2)
[2018-05-21 06:05] LABS: INTERNATIONAL NORMALIZED RATIO 1.15 (0.93-1.1); PROTHROMBIN TIME 12.1 Seconds (9.6-11.5)
[2018-05-21 06:09] LABS: CHLORIDE 112 mmol/L (98-107)
[2018-05-21 06:10] LABS: ALBUMIN 2.3 g/dL (3.4-5.0); ANION GAP 10 mmol/L (5-15); CALCIUM 8.2 mg/dL (8.5-10.1)
[2018-05-21 06:16] LABS: % IRON SATURATION 11 % (20-55); ALANINE AMINOTRANSFERASE 58 U/L (12-78); ALKALINE PHOSPHATASE 327 U/L (45-117); BILIRUBIN,TOTAL 0.7 mg/dL (0.2-1.0); CREATININE 2.73 mg/dL (0.55-1.02); IRON LEVEL 25 mcg/dL (50-170); TOTAL IRON BINDING CAPACITY 226 mcg/dL (250-450); TOTAL PROTEIN 5.6 g/dL (6.4-8.2)
[2018-05-21] MEDS: HEPARIN 5,000 UNITS/ML, 1ML SQ SCH ×3 (06:20→20:56)
[2018-05-21] MEDS: CARVEDILOL 6.25 MG TABLET PO SCH ×2 (06:20→17:23)
[2018-05-21 07:30] VITALS: BP 167/67
[2018-05-21] MEDS: INSULIN REGULAR, HUMAN 100 UNIT/ML 3ML VIAL LOW DOSE SS SQ-INSULIN SCH ×4 (07:41→20:58)
[2018-05-21] MEDS: AMLODIPINE 5 MG TABLET PO SCH (08:13)
[2018-05-21] MEDS: PANTOPROZOLE 40MG TABLET PO SCH ×2 (08:13→16:24)
[2018-05-21] MEDS: IBUPROFEN 800 MG TABLET PO SCH (08:13)
[2018-05-21] MEDS: INSULIN GLARGINE 100 UNITS/ML, PEN SQ-INSULIN SCH (08:14)
[2018-05-21] MEDS: SENNA/DOCUSATE TABLET PO SCH ×2 (08:14→08:15)
[2018-05-21] MEDS: SODIUM CHLORIDE 0.45% 1,000 ML IV SCH ×2 (09:55→23:06)
[2018-05-21] MEDS: IRON SUCROSE COMPLEX 100MG/5ML IV SCH (09:55)
[2018-05-21 13:15] VITALS: BP 148/66
[2018-05-21 17:23] VITALS: BP 146/68
[2018-05-21 19:53] VITALS: BP 146/72
[2018-05-21] MEDS: ATORVASTATIN 40 MG TABLET PO SCH (20:55)
[2018-05-22] MEDS: ACETAMINOPHEN 500 MG TABLET PO SCH ×5 (00:01→23:53)
[2018-05-22 00:15] VITALS: BP 152/65
[2018-05-22 05:14] LABS: BASOPHILS # (AUTO) 0.03 x10^3/uL (0-0.1); BASOPHILS % (AUTO) 0 % (0-1); EOSINOPHILS # (AUTO) 0.64 x10^3/uL (0-0.4); EOSINOPHILS % (AUTO) 7 % (1-7); LYMPHOCYTES # (AUTO) 1.21 x10^3/uL (1-3.4); LYMPHOCYTES % (AUTO) 12 % (22-44); MD NO; MEAN CORPUSCULAR HEMOGLOBIN 30.6 pg (27.0-34.8); MEAN CORPUSCULAR HGB CONC 33.5 g/dL (32.4-35.8); MEAN CORPUSCULAR VOLUME 91.4 fL (80-100); MEAN PLATELET VOLUME 10.8 fL (7.4-10.4); MONOCYTES % (AUTO) 7 % (2-9); NEUTROPHILS # (AUTO) 7.15 x10^3/uL (1.8-6.8); NEUTROPHILS % (AUTO) 74 % (42-75); PLATELET COUNT 200 x10^3/uL (130-400); RED BLOOD COUNT 3.01 x10^6/uL (3.82-5.3); RED CELL DISTRIBUTION WIDTH 17.5 % (9.6-15.2)
[2018-05-22 05:17] LABS: INTERNATIONAL NORMALIZED RATIO 1.11 (0.93-1.1); PROTHROMBIN TIME 11.7 Seconds (9.6-11.5)
[2018-05-22 05:27] LABS: ALBUMIN 2.1 g/dL (3.4-5.0); CHLORIDE 112 mmol/L (98-107)
[2018-05-22 05:36] LABS: ALANINE AMINOTRANSFERASE 55 U/L (12-78); ALKALINE PHOSPHATASE 329 U/L (45-117); ANION GAP 10 mmol/L (5-15); BILIRUBIN,TOTAL 0.5 mg/dL (0.2-1.0); CALCIUM 7.9 mg/dL (8.5-10.1); CREATININE 2.75 mg/dL (0.55-1.02); TOTAL PROTEIN 5.6 g/dL (6.4-8.2)
[2018-05-22] MEDS: HEPARIN 5,000 UNITS/ML, 1ML SQ SCH ×3 (05:41→21:39)
[2018-05-22] MEDS: CARVEDILOL 6.25 MG TABLET PO SCH ×2 (05:42→18:23)
[2018-05-22] MEDS: INSULIN REGULAR, HUMAN 100 UNIT/ML 3ML VIAL LOW DOSE SS SQ-INSULIN SCH ×4 (07:00→21:39)
[2018-05-22 08:56] VITALS: BP 117/67
[2018-05-22] MEDS: AMLODIPINE 5 MG TABLET PO SCH (09:04)
[2018-05-22] MEDS: PANTOPROZOLE 40MG TABLET PO SCH ×2 (09:04→18:23)
[2018-05-22] MEDS: SENNA/DOCUSATE TABLET PO SCH ×2 (09:04→09:07)
[2018-05-22] MEDS: INSULIN GLARGINE 100 UNITS/ML, PEN SQ-INSULIN SCH (09:05)
[2018-05-22] MEDS: IRON SUCROSE COMPLEX 100MG/5ML IV SCH (09:59)
[2018-05-22 12:18] LABS: INTERNATIONAL NORMALIZED RATIO 1.08 (0.93-1.1); PROTHROMBIN TIME 11.4 Seconds (9.6-11.5)
[2018-05-22] MEDS: SODIUM CHLORIDE 0.45% 1,000 ML IV SCH (13:02)
[2018-05-22 13:33] VITALS: BP 160/72
[2018-05-22] MEDS ORDERED: WARFARIN 5 MG TABLET PO-COUM ONE (18:00)
[2018-05-22 18:59] VITALS: BP 153/63
[2018-05-22] MEDS: ATORVASTATIN 40 MG TABLET PO SCH (21:39)
[2018-05-23 00:04] VITALS: BP 158/70
[2018-05-23] MEDS: SODIUM CHLORIDE 0.45% 1,000 ML IV SCH (02:18)
[2018-05-23] MEDS: HEPARIN 5,000 UNITS/ML, 1ML SQ SCH ×2 (05:22→12:54)
[2018-05-23] MEDS: CARVEDILOL 6.25 MG TABLET PO SCH ×2 (05:22→17:31)
[2018-05-23] MEDS: ACETAMINOPHEN 500 MG TABLET PO SCH ×4 (05:22→23:58)
[2018-05-23 05:57] LABS: BASOPHILS # (AUTO) 0.04 x10^3/uL (0-0.1); BASOPHILS % (AUTO) 0 % (0-1); EOSINOPHILS # (AUTO) 0.61 x10^3/uL (0-0.4); EOSINOPHILS % (AUTO) 6 % (1-7); LYMPHOCYTES # (AUTO) 1.09 x10^3/uL (1-3.4); LYMPHOCYTES % (AUTO) 11 % (22-44); MD NO; MEAN CORPUSCULAR HGB CONC 33.9 g/dL (32.4-35.8); MEAN CORPUSCULAR VOLUME 91.5 fL (80-100); MEAN PLATELET VOLUME 10.8 fL (7.4-10.4); MONOCYTES # (AUTO) 0.74 x10^3/uL (0.2-0.8); MONOCYTES % (AUTO) 8 % (2-9); NEUTROPHILS # (AUTO) 7.28 x10^3/uL (1.8-6.8); NEUTROPHILS % (AUTO) 75 % (42-75); PLATELET COUNT 211 x10^3/uL (130-400); RED BLOOD COUNT 2.99 x10^6/uL (3.82-5.3); RED CELL DISTRIBUTION WIDTH 16.8 % (9.6-15.2)
[2018-05-23 06:00] LABS: INTERNATIONAL NORMALIZED RATIO 1.09 (0.93-1.1); PROTHROMBIN TIME 11.5 Seconds (9.6-11.5)
[2018-05-23 06:08] LABS: ALBUMIN 2.1 g/dL (3.4-5.0); ANION GAP 9 mmol/L (5-15); CALCIUM 7.8 mg/dL (8.5-10.1); CHLORIDE 113 mmol/L (98-107)
[2018-05-23 06:09] LABS: CREATININE 2.68 mg/dL (0.55-1.02)
[2018-05-23] MEDS: INSULIN REGULAR, HUMAN 100 UNIT/ML 3ML VIAL LOW DOSE SS SQ-INSULIN SCH ×4 (06:27→20:58)
[2018-05-23 07:45] VITALS: BP 140/67
[2018-05-23] MEDS: PANTOPROZOLE 40MG TABLET PO SCH ×2 (08:07→17:31)
[2018-05-23] MEDS: SENNA/DOCUSATE TABLET PO SCH ×2 (08:07→08:09)
[2018-05-23] MEDS: AMLODIPINE 5 MG TABLET PO SCH (08:07)
[2018-05-23] MEDS: INSULIN GLARGINE 100 UNITS/ML, PEN SQ-INSULIN SCH (08:07)
[2018-05-23] MEDS: IRON SUCROSE COMPLEX 100MG/5ML IV SCH (08:35)
[2018-05-23] MEDS: BENZONATATE 100 MG CAPSULE PO SCH ×3 (10:25→20:58)
[2018-05-23 12:34] VITALS: BP 160/70
[2018-05-23 17:30] VITALS: BP 158/80
[2018-05-23] MEDS ORDERED: WARFARIN 7.5 MG TABLET PO-COUM ONE (18:00)
[2018-05-23 19:07] VITALS: BP 162/76
[2018-05-23] MEDS: ATORVASTATIN 40 MG TABLET PO SCH (20:58)
[2018-05-24 02:02] VITALS: BP 165/72
[2018-05-24] MEDS: ACETAMINOPHEN 500 MG TABLET PO SCH ×2 (02:23→08:56)
[2018-05-24] MEDS: CARVEDILOL 6.25 MG TABLET PO SCH ×2 (02:24→17:50)
[2018-05-24] MEDS: OXYcodone IR 5MG TABLET PO PRN ×2 (03:41→14:45)
[2018-05-24 05:42] LABS: BASOPHILS # (AUTO) 0.04 x10^3/uL (0-0.1); BASOPHILS % (AUTO) 0 % (0-1); EOSINOPHILS # (AUTO) 0.53 x10^3/uL (0-0.4); EOSINOPHILS % (AUTO) 5 % (1-7); LYMPHOCYTES # (AUTO) 1.02 x10^3/uL (1-3.4); LYMPHOCYTES % (AUTO) 9 % (22-44); MD NO; MEAN CORPUSCULAR HEMOGLOBIN 30.7 pg (27.0-34.8); MEAN CORPUSCULAR HGB CONC 34.1 g/dL (32.4-35.8); MEAN CORPUSCULAR VOLUME 90.3 fL (80-100); MEAN PLATELET VOLUME 10.2 fL (7.4-10.4); MONOCYTES # (AUTO) 0.74 x10^3/uL (0.2-0.8); MONOCYTES % (AUTO) 6 % (2-9); NEUTROPHILS # (AUTO) 9.13 x10^3/uL (1.8-6.8); NEUTROPHILS % (AUTO) 80 % (42-75); PLATELET COUNT 220 x10^3/uL (130-400); RED BLOOD COUNT 3.05 x10^6/uL (3.82-5.3); RED CELL DISTRIBUTION WIDTH 16.4 % (9.6-15.2)
[2018-05-24 05:43] LABS: INTERNATIONAL NORMALIZED RATIO 1.15 (0.93-1.1); PROTHROMBIN TIME 12.1 Seconds (9.6-11.5)
[2018-05-24 05:46] LABS: CHLORIDE 114 mmol/L (98-107)
[2018-05-24 05:55] LABS: ALANINE AMINOTRANSFERASE 65 U/L (12-78); ALBUMIN 2.4 g/dL (3.4-5.0); ALKALINE PHOSPHATASE 337 U/L (45-117); ANION GAP 9 mmol/L (5-15); BILIRUBIN,TOTAL 0.6 mg/dL (0.2-1.0); CALCIUM 8.6 mg/dL (8.5-10.1); CREATININE 2.89 mg/dL (0.55-1.02); TOTAL PROTEIN 5.7 g/dL (6.4-8.2)
[2018-05-24] MEDS: INSULIN REGULAR, HUMAN 100 UNIT/ML 3ML VIAL LOW DOSE SS SQ-INSULIN SCH ×4 (06:29→21:06)
[2018-05-24 06:38] VITALS: BP 138/71
[2018-05-24] MEDS: PANTOPROZOLE 40MG TABLET PO SCH ×2 (08:56→17:50)
[2018-05-24] MEDS: AMLODIPINE 5 MG TABLET PO SCH (08:56)
[2018-05-24] MEDS: IRON SUCROSE COMPLEX 100MG/5ML IV SCH (08:56)
[2018-05-24] MEDS: BENZONATATE 100 MG CAPSULE PO SCH ×3 (08:57→20:56)
[2018-05-24] MEDS: INSULIN GLARGINE 100 UNITS/ML, PEN SQ-INSULIN SCH (08:57)
[2018-05-24] MEDS: SENNA/DOCUSATE TABLET PO SCH (08:57)
[2018-05-24] MEDS: FLUTICASONE NASAL SPRAY 16GM NAS SCH (10:03)
[2018-05-24 11:48] LABS: CLOSTRIDIUM DIFFICILE ANTIGEN POSITIVE; CLOSTRIDIUM DIFFICILE TOXIN POSITIVE (Negative)
[2018-05-24 12:29] VITALS: BP 162/64
[2018-05-24] MEDS: VANCOMYCIN 50 MG/ML ORAL SUSP PO SCH ×3 (12:33→23:55)
[2018-05-24 17:48] VITALS: BP 160/72
[2018-05-24] MEDS ORDERED: WARFARIN 7.5 MG TABLET PO-COUM ONE (18:00)
[2018-05-24 20:07] VITALS: BP 151/78
[2018-05-24] MEDS: ATORVASTATIN 40 MG TABLET PO SCH (20:56)
[2018-05-25 01:47] VITALS: BP 159/54
[2018-05-25] MEDS: VANCOMYCIN 50 MG/ML ORAL SUSP PO SCH ×3 (03:56→17:55)
[2018-05-25] MEDS: CARVEDILOL 6.25 MG TABLET PO SCH ×2 (03:56→17:55)
[2018-05-25] MEDS: OXYcodone IR 5MG TABLET PO PRN (03:56)
[2018-05-25 05:47] LABS: BASOPHILS # (AUTO) 0.04 x10^3/uL (0-0.1); BASOPHILS % (AUTO) 0 % (0-1); EOSINOPHILS # (AUTO) 0.59 x10^3/uL (0-0.4); EOSINOPHILS % (AUTO) 6 % (1-7); LYMPHOCYTES # (AUTO) 1.03 x10^3/uL (1-3.4); LYMPHOCYTES % (AUTO) 10 % (22-44); MD NO; MEAN CORPUSCULAR HEMOGLOBIN 30.6 pg (27.0-34.8); MEAN CORPUSCULAR HGB CONC 33.8 g/dL (32.4-35.8); MEAN CORPUSCULAR VOLUME 90.7 fL (80-100); MEAN PLATELET VOLUME 9.8 fL (7.4-10.4); MONOCYTES # (AUTO) 0.86 x10^3/uL (0.2-0.8); MONOCYTES % (AUTO) 8 % (2-9); NEUTROPHILS # (AUTO) 8.18 x10^3/uL (1.8-6.8); NEUTROPHILS % (AUTO) 77 % (42-75); PLATELET COUNT 222 x10^3/uL (130-400); RED BLOOD COUNT 2.96 x10^6/uL (3.82-5.3); RED CELL DISTRIBUTION WIDTH 16.8 % (9.6-15.2)
[2018-05-25 05:51] LABS: INTERNATIONAL NORMALIZED RATIO 1.61 (0.93-1.1); PROTHROMBIN TIME 16.8 Seconds (9.6-11.5)
[2018-05-25 05:55] LABS: CHLORIDE 117 mmol/L (98-107)
[2018-05-25 06:04] LABS: ALANINE AMINOTRANSFERASE 63 U/L (12-78); ALBUMIN 2.2 g/dL (3.4-5.0); ALKALINE PHOSPHATASE 328 U/L (45-117); ANION GAP 9 mmol/L (5-15); BILIRUBIN,TOTAL 0.6 mg/dL (0.2-1.0); CALCIUM 8.4 mg/dL (8.5-10.1); CREATININE 2.87 mg/dL (0.55-1.02); TOTAL PROTEIN 5.3 g/dL (6.4-8.2)
[2018-05-25 07:32] VITALS: BP 164/72
[2018-05-25] MEDS: INSULIN REGULAR, HUMAN 100 UNIT/ML 3ML VIAL LOW DOSE SS SQ-INSULIN SCH ×4 (08:04→20:44)
[2018-05-25] MEDS: BENZONATATE 100 MG CAPSULE PO SCH ×3 (08:42→20:44)
[2018-05-25] MEDS: AMLODIPINE 5 MG TABLET PO SCH (08:43)
[2018-05-25] MEDS: FLUTICASONE NASAL SPRAY 16GM NAS SCH (08:44)
[2018-05-25] MEDS: IRON SUCROSE COMPLEX 100MG/5ML IV SCH (08:45)
[2018-05-25] MEDS: INSULIN GLARGINE 100 UNITS/ML, PEN SQ-INSULIN SCH (08:46)
[2018-05-25] MEDS: SENNA/DOCUSATE TABLET PO SCH (08:49)
[2018-05-25] MEDS: PANTOPROZOLE 40MG TABLET PO SCH ×2 (08:49→17:55)
[2018-05-25] MEDS: LORazepam 2 MG/ML, 1ML IVPush PRN (10:05)
[2018-05-25 13:42] VITALS: BP 130/78
[2018-05-25 20:14] VITALS: BP 156/78
[2018-05-25] MEDS: ATORVASTATIN 40 MG TABLET PO SCH (20:44)
[2018-05-26] MEDS: VANCOMYCIN 50 MG/ML ORAL SUSP PO SCH ×5 (00:10→23:59)
[2018-05-26 02:05] VITALS: BP 158/72
[2018-05-26 06:14] LABS: BASOPHILS # (AUTO) 0.05 x10^3/uL (0-0.1); BASOPHILS % (AUTO) 1 % (0-1); EOSINOPHILS # (AUTO) 0.53 x10^3/uL (0-0.4); EOSINOPHILS % (AUTO) 5 % (1-7); LYMPHOCYTES # (AUTO) 1.05 x10^3/uL (1-3.4); LYMPHOCYTES % (AUTO) 10 % (22-44); MD NO; MEAN CORPUSCULAR HEMOGLOBIN 30.9 pg (27.0-34.8); MEAN CORPUSCULAR HGB CONC 33.9 g/dL (32.4-35.8); MEAN CORPUSCULAR VOLUME 91.2 fL (80-100); MEAN PLATELET VOLUME 9.8 fL (7.4-10.4); MONOCYTES # (AUTO) 0.89 x10^3/uL (0.2-0.8); MONOCYTES % (AUTO) 8 % (2-9); NEUTROPHILS # (AUTO) 8.45 x10^3/uL (1.8-6.8); NEUTROPHILS % (AUTO) 77 % (42-75); PLATELET COUNT 263 x10^3/uL (130-400); RED BLOOD COUNT 3.26 x10^6/uL (3.82-5.3); RED CELL DISTRIBUTION WIDTH 17.2 % (9.6-15.2)
[2018-05-26 06:20] LABS: INTERNATIONAL NORMALIZED RATIO 1.83 (0.93-1.1)
[2018-05-26 06:26] LABS: ALBUMIN 2.5 g/dL (3.4-5.0); ANION GAP 8 mmol/L (5-15); CHLORIDE 116 mmol/L (98-107)
[2018-05-26] MEDS: INSULIN REGULAR, HUMAN 100 UNIT/ML 3ML VIAL LOW DOSE SS SQ-INSULIN SCH ×4 (06:36→21:00)
[2018-05-26] MEDS: CARVEDILOL 6.25 MG TABLET PO SCH ×2 (06:36→18:10)
[2018-05-26] MEDS: PANTOPROZOLE 40MG TABLET PO SCH ×2 (07:30→17:00)
[2018-05-26 07:56] VITALS: BP 166/79
[2018-05-26] MEDS: SENNA/DOCUSATE TABLET PO SCH ×2 (09:00→10:01)
[2018-05-26] MEDS: AMLODIPINE 5 MG TABLET PO SCH (10:01)
[2018-05-26] MEDS: BENZONATATE 100 MG CAPSULE PO SCH ×3 (10:01→21:23)
[2018-05-26] MEDS: FLUTICASONE NASAL SPRAY 16GM NAS SCH (10:02)
[2018-05-26] MEDS: INSULIN GLARGINE 100 UNITS/ML, PEN SQ-INSULIN SCH (10:04)
[2018-05-26] MEDS ORDERED: BUPIVACAINE/PF-EPI 0.5% 1:200K ONE (14:09)
[2018-05-26] MEDS ORDERED: FENTANYL PF 250 MCG/5ML ONE (15:31)
[2018-05-26] MEDS ORDERED: PHENYLEPHRINE 10 MG/ML ONE (15:31)
[2018-05-26] MEDS ORDERED: ROCURONIUM 10MG/ML,5ML ONE (15:32)
[2018-05-26] MEDS ORDERED: PROPOFOL 10 MG/ML, 20ML ONE (15:32)
[2018-05-26] MEDS ORDERED: FENTANYL PF 100 MCG/2ML ONE (17:01)
[2018-05-26] MEDS ORDERED: FENTANYL PF 100 MCG/2ML IV PRN (17:30)
[2018-05-26] MEDS ORDERED: ONDANSETRON 2MG/ML, 2ML ONE (17:40)
[2018-05-26 17:55] VITALS: BP 146/69
[2018-05-26] MEDS: ATORVASTATIN 40 MG TABLET PO SCH (21:23)
[2018-05-26] MEDS: POTASSIUM CHLORIDE 20 MEQ in D5%-0.45% NACL 1,000 ML IV SCH (21:23)
[2018-05-26 21:59] VITALS: BP 160/71
[2018-05-26] MEDS: OXYcodone IR 5MG TABLET PO PRN (23:23)
[2018-05-27 00:53] VITALS: BP 165/83
[2018-05-27 03:53] LABS: MEAN CORPUSCULAR HEMOGLOBIN 30.2 pg (27.0-34.8); MEAN CORPUSCULAR VOLUME 91.5 fL (80-100); MEAN PLATELET VOLUME 9.8 fL (7.4-10.4); PLATELET COUNT 262 x10^3/uL (130-400); RED BLOOD COUNT 3.21 x10^6/uL (3.82-5.3); RED CELL DISTRIBUTION WIDTH 17.1 % (9.6-15.2)
[2018-05-27 03:54] LABS: INTERNATIONAL NORMALIZED RATIO 1.76 (0.93-1.1); PROTHROMBIN TIME 18.3 Seconds (9.6-11.5)
[2018-05-27 03:57] LABS: ALBUMIN 2.3 g/dL (3.4-5.0); ANION GAP 9 mmol/L (5-15); CALCIUM 8.2 mg/dL (8.5-10.1); CHLORIDE 114 mmol/L (98-107); CREATININE 2.62 mg/dL (0.55-1.02)
[2018-05-27 04:09] LABS: MD YES
[2018-05-27 04:11] LABS: BAND#(MANUAL) 1.68 x10^3/uL; BANDS%(MANUAL) 8 % (0-7); LYMPH#(MANUAL) 0.42 x10^3/uL (1-3.4); LYMPHS% (MANUAL) 2 % (22-44); MONOS#(MANUAL) 0.42 x10^3/uL (0.3-2.7); MONOS% (MANUAL) 2 % (2-9); SEG#(MANUAL) 18.48 x10^3/uL (1.8-6.8); SEGS% (MANUAL) 88 % (42-75)
[2018-05-27 04:12] LABS: <PLATELET ESTIMATE> ADEQUATE; <PLT MORPHOLOGY> NORMAL PLT MORPH; ANISOCYTOSIS 1+
[2018-05-27] MEDS: CARVEDILOL 6.25 MG TABLET PO SCH ×2 (05:28→17:29)
[2018-05-27] MEDS: OXYcodone IR 5MG TABLET PO PRN ×3 (05:35→21:26)
[2018-05-27] MEDS: VANCOMYCIN 50 MG/ML ORAL SUSP PO SCH ×3 (06:00→17:28)
[2018-05-27 08:19] VITALS: BP 139/68
[2018-05-27] MEDS ORDERED: PIPERACILLIN/TAZO/PMX 3.375GM 50 ML IV SCH (08:30)
[2018-05-27] MEDS: FLUTICASONE NASAL SPRAY 16GM NAS SCH (08:34)
[2018-05-27] MEDS: AMLODIPINE 5 MG TABLET PO SCH (08:34)
[2018-05-27] MEDS: BENZONATATE 100 MG CAPSULE PO SCH ×3 (08:34→23:17)
[2018-05-27] MEDS: SENNA/DOCUSATE TABLET PO SCH (08:34)
[2018-05-27] MEDS: PANTOPROZOLE 40MG TABLET PO SCH ×2 (08:34→16:37)
[2018-05-27] MEDS: INSULIN REGULAR, HUMAN 100 UNIT/ML 3ML VIAL LOW DOSE SS SQ-INSULIN SCH ×4 (08:35→21:25)
[2018-05-27] MEDS: INSULIN GLARGINE 100 UNITS/ML, PEN SQ-INSULIN SCH (08:36)
[2018-05-27 09:32] LABS: MICROSCOPIC INDICATED
[2018-05-27 09:33] LABS: CULTURE INDICATED? YES
[2018-05-27] MEDS ORDERED: VANCOMYCIN PER PHARMACY MC PRN (10:00)
[2018-05-27] MEDS ORDERED: PHARMACOKINETIC CONSULTATION MC ONE (10:00)
[2018-05-27] MEDS ORDERED: PHARMACOKINETIC MONITORING MC PRN (10:00)
[2018-05-27] MEDS: PIPERACILLIN/TAZO/PMX 2.25GM 50 ML IVPB SCH ×2 (10:18→16:37)
[2018-05-27] MEDS: POTASSIUM CHLORIDE 20 MEQ in D5%-0.45% NACL 1,000 ML IV SCH (10:18)
[2018-05-27] MEDS ORDERED: VANCOMYCIN 1,500 MG in SODIUM CHLORIDE 0.9% 250 ML IV ONE (10:30)
[2018-05-27] MEDS: HEPARIN 5,000 UNITS/ML, 1ML SQ SCH ×2 (15:03→21:27)
[2018-05-27 15:09] VITALS: BP 132/63
[2018-05-27] MEDS ORDERED: HEPARIN 5,000 UNITS/ML, 1ML SQ SCH (16:00)
[2018-05-27] MEDS: DIPHENHYDRAMINE 25 MG CAPSULE PO PRN ×2 (16:51→20:13)
[2018-05-27 17:27] VITALS: BP 121/50
[2018-05-27 19:11] VITALS: BP 143/85
[2018-05-27 20:51] VITALS: BP 143/75
[2018-05-27] MEDS: ATORVASTATIN 40 MG TABLET PO SCH (21:29)
[2018-05-27] MEDS ORDERED: ONDANSETRON ODT 4 MG PO PRN (23:00)
[2018-05-27] MEDS ORDERED: ONDANSETRON 2MG/ML, 2ML IVPush PRN (23:00)
[2018-05-28 01:10] VITALS: BP 111/57
[2018-05-28] MEDS: POTASSIUM CHLORIDE 20 MEQ in D5%-0.45% NACL 1,000 ML IV SCH ×2 (01:12→14:29)
[2018-05-28] MEDS: VANCOMYCIN 50 MG/ML ORAL SUSP PO SCH ×4 (01:13→17:31)
[2018-05-28] MEDS: OXYcodone IR 5MG TABLET PO PRN ×3 (01:13→21:41)
[2018-05-28] MEDS: DIPHENHYDRAMINE 25 MG CAPSULE PO PRN ×3 (01:31→21:41)
[2018-05-28] MEDS ORDERED: DIPHENHYDRAMINE 25 MG CAPSULE PO ONE (03:00)
[2018-05-28 05:18] LABS: PROTHROMBIN TIME 20.6 Seconds (9.6-11.5)
[2018-05-28 05:21] LABS: CHLORIDE 113 mmol/L (98-107); MEAN CORPUSCULAR HEMOGLOBIN 31.1 pg (27.0-34.8); MEAN CORPUSCULAR HGB CONC 33.4 g/dL (32.4-35.8); MEAN CORPUSCULAR VOLUME 92.9 fL (80-100); MEAN PLATELET VOLUME 10.1 fL (7.4-10.4); PLATELET COUNT 218 x10^3/uL (130-400); RED BLOOD COUNT 2.94 x10^6/uL (3.82-5.3); RED CELL DISTRIBUTION WIDTH 17.4 % (9.6-15.2)
[2018-05-28 05:28] LABS: ALBUMIN 1.8 g/dL (3.4-5.0); ANION GAP 8 mmol/L (5-15); CALCIUM 7.7 mg/dL (8.5-10.1); CREATININE 2.81 mg/dL (0.55-1.02); VANCOMYCIN,RANDOM 12.5 mcg/mL
[2018-05-28 05:48] LABS: BASOPHILS # (AUTO) 0.03 x10^3/uL (0-0.1); BASOPHILS % (AUTO) 0 % (0-1); EOSINOPHILS # (AUTO) 0.04 x10^3/uL (0-0.4); EOSINOPHILS % (AUTO) 0 % (1-7); LYMPHOCYTES # (AUTO) 0.62 x10^3/uL (1-3.4); LYMPHOCYTES % (AUTO) 5 % (22-44); MD SCAN; MONOCYTES # (AUTO) 0.54 x10^3/uL (0.2-0.8); MONOCYTES % (AUTO) 5 % (2-9); NEUTROPHILS # (AUTO) 10.81 x10^3/uL (1.8-6.8); NEUTROPHILS % (AUTO) 90 % (42-75)
[2018-05-28] MEDS: FAMOTIDINE 20 MG TABLET PO SCH ×2 (06:17→07:54)
[2018-05-28] MEDS: CARVEDILOL 6.25 MG TABLET PO SCH ×2 (06:18→17:31)
[2018-05-28] MEDS: HEPARIN 5,000 UNITS/ML, 1ML SQ SCH ×2 (06:18→13:44)
[2018-05-28] MEDS: INSULIN REGULAR, HUMAN 100 UNIT/ML 3ML VIAL LOW DOSE SS SQ-INSULIN SCH ×4 (07:00→21:40)
[2018-05-28 07:43] VITALS: BP 118/70
[2018-05-28] MEDS: BENZONATATE 100 MG CAPSULE PO SCH ×3 (07:54→21:41)
[2018-05-28] MEDS: AMLODIPINE 5 MG TABLET PO SCH (07:54)
[2018-05-28] MEDS: INSULIN GLARGINE 100 UNITS/ML, PEN SQ-INSULIN SCH (07:55)
[2018-05-28] MEDS: PANTOPROZOLE 40MG TABLET PO SCH ×2 (07:55→17:05)
[2018-05-28] MEDS: SENNA/DOCUSATE TABLET PO SCH (07:55)
[2018-05-28] MEDS: FLUTICASONE NASAL SPRAY 16GM NAS SCH (07:55)
[2018-05-28] MEDS ORDERED: VANCOMYCIN 1,700 MG in SODIUM CHLORIDE 0.9% 250 ML IV ONE (10:00)
[2018-05-28 13:33] VITALS: BP 110/66
--- NOTE | 2018-05-28 13:40 | NUR ---
BED CONTROL SPECIALIST Recommends: NTLs/ground texture, assist with meals. Swallow precaution sign posted at bedside. Addendum: 05/28/18 at 1625 by Danika STRONG Amended: Links added.
[2018-05-28] MEDS ORDERED: CEFTRIAXONE PMX 1GM/50ML 50 ML IV SCH (15:30)
[2018-05-28] MEDS ORDERED: PANTOPRAZOLE MC SCH (16:00)
[2018-05-28] MEDS ORDERED: FAMOTIDINE MC SCH (16:00)
[2018-05-28 17:25] VITALS: BP 109/53
[2018-05-28] MEDS: ATORVASTATIN 40 MG TABLET PO SCH (21:41)
[2018-05-28 21:59] VITALS: BP 119/69
[2018-05-29] MEDS: VANCOMYCIN 50 MG/ML ORAL SUSP PO SCH ×4 (00:32→18:19)
[2018-05-29] MEDS: HEPARIN 5,000 UNITS/ML, 1ML SQ SCH ×3 (00:32→16:42)
[2018-05-29] MEDS: DIPHENHYDRAMINE 25 MG CAPSULE PO PRN (03:02)
[2018-05-29] MEDS: POTASSIUM CHLORIDE 20 MEQ in D5%-0.45% NACL 1,000 ML IV SCH ×2 (03:03→14:41)
[2018-05-29] MEDS: OXYcodone IR 5MG TABLET PO PRN (03:03)
[2018-05-29 03:07] VITALS: BP 110/60
[2018-05-29 05:24] LABS: MEAN CORPUSCULAR HEMOGLOBIN 30.6 pg (27.0-34.8); MEAN CORPUSCULAR HGB CONC 33.2 g/dL (32.4-35.8); MEAN CORPUSCULAR VOLUME 92.2 fL (80-100); MEAN PLATELET VOLUME 10.1 fL (7.4-10.4); PLATELET COUNT 229 x10^3/uL (130-400); RED BLOOD COUNT 3.07 x10^6/uL (3.82-5.3); RED CELL DISTRIBUTION WIDTH 17.7 % (9.6-15.2)
[2018-05-29 05:29] LABS: CHLORIDE 112 mmol/L (98-107)
[2018-05-29 05:37] LABS: ALANINE AMINOTRANSFERASE 58 U/L (12-78); ALBUMIN 2.1 g/dL (3.4-5.0); ALKALINE PHOSPHATASE 320 U/L (45-117); ANION GAP 7 mmol/L (5-15); BILIRUBIN,TOTAL 0.5 mg/dL (0.2-1.0); CALCIUM 8.1 mg/dL (8.5-10.1); CREATININE 3.05 mg/dL (0.55-1.02); TOTAL PROTEIN 5.4 g/dL (6.4-8.2)
[2018-05-29 05:56] LABS: BASOPHILS # (AUTO) 0.02 x10^3/uL (0-0.1); BASOPHILS % (AUTO) 0 % (0-1); EOSINOPHILS % (AUTO) 1 % (1-7); LYMPHOCYTES # (AUTO) 0.55 x10^3/uL (1-3.4); LYMPHOCYTES % (AUTO) 8 % (22-44); MD SCAN; MONOCYTES % (AUTO) 4 % (2-9); NEUTROPHILS % (AUTO) 86 % (42-75)
[2018-05-29] MEDS: CARVEDILOL 6.25 MG TABLET PO SCH ×2 (06:33→18:18)
[2018-05-29] MEDS: INSULIN REGULAR, HUMAN 100 UNIT/ML 3ML VIAL LOW DOSE SS SQ-INSULIN SCH ×4 (07:00→21:00)
[2018-05-29 07:40] LABS: INTERNATIONAL NORMALIZED RATIO 1.84 (0.93-1.1); PROTHROMBIN TIME 19.1 Seconds (9.6-11.5)
[2018-05-29] MEDS: PANTOPROZOLE 40MG TABLET PO SCH ×2 (08:01→16:42)
[2018-05-29] MEDS ORDERED: FAMOTIDINE 20 MG TABLET PO SCH (09:00)
[2018-05-29 09:08] VITALS: BP 135/75
[2018-05-29] MEDS: FLUTICASONE NASAL SPRAY 16GM NAS SCH (09:55)
[2018-05-29] MEDS: BENZONATATE 100 MG CAPSULE PO SCH ×4 (09:56→21:43)
[2018-05-29] MEDS: INSULIN GLARGINE 100 UNITS/ML, PEN SQ-INSULIN SCH (09:56)
[2018-05-29] MEDS: SENNA/DOCUSATE TABLET PO SCH (09:56)
[2018-05-29] MEDS: AMLODIPINE 5 MG TABLET PO SCH (09:57)
[2018-05-29] MEDS: SULFAMETH./TRIMETHOPRIM DS 800MG/160MG TABLET PO SCH ×2 (11:37→21:43)
[2018-05-29 13:24] VITALS: BP 131/68
[2018-05-29 17:02] LABS: ANION GAP 8 mmol/L (5-15); CHLORIDE 111 mmol/L (98-107); CREATININE 3.01 mg/dL (0.55-1.02)
[2018-05-29 18:17] VITALS: BP 134/66
[2018-05-29 21:15] VITALS: BP 145/71
[2018-05-29] MEDS: ATORVASTATIN 40 MG TABLET PO SCH (21:43)
[2018-05-29 21:57] VITALS: BP 121/68
[2018-05-30] MEDS: VANCOMYCIN 50 MG/ML ORAL SUSP PO SCH ×5 (00:27→21:14)
[2018-05-30] MEDS: HEPARIN 5,000 UNITS/ML, 1ML SQ SCH ×4 (00:27→21:14)
[2018-05-30] MEDS: POTASSIUM CHLORIDE 20 MEQ in D5%-0.45% NACL 1,000 ML IV SCH (02:02)
[2018-05-30 02:06] VITALS: BP 145/79
[2018-05-30 05:20] LABS: INTERNATIONAL NORMALIZED RATIO 1.39 (0.93-1.1); PROTHROMBIN TIME 14.5 Seconds (9.6-11.5)
[2018-05-30 05:54] LABS: BASOPHILS % (AUTO) 0 % (0-1); EOSINOPHILS # (AUTO) 0.12 x10^3/uL (0-0.4); EOSINOPHILS % (AUTO) 1 % (1-7); LYMPHOCYTES # (AUTO) 0.43 x10^3/uL (1-3.4); LYMPHOCYTES % (AUTO) 5 % (22-44); MD NO; MEAN CORPUSCULAR HEMOGLOBIN 31.2 pg (27.0-34.8); MEAN CORPUSCULAR HGB CONC 33.9 g/dL (32.4-35.8); MEAN PLATELET VOLUME 10.1 fL (7.4-10.4); MONOCYTES # (AUTO) 0.31 x10^3/uL (0.2-0.8); MONOCYTES % (AUTO) 3 % (2-9); NEUTROPHILS # (AUTO) 8.33 x10^3/uL (1.8-6.8); NEUTROPHILS % (AUTO) 91 % (42-75); PLATELET COUNT 244 x10^3/uL (130-400); RED BLOOD COUNT 3.02 x10^6/uL (3.82-5.3); RED CELL DISTRIBUTION WIDTH 17.7 % (9.6-15.2)
[2018-05-30 06:15] VITALS: BP 147/52
[2018-05-30] MEDS: CARVEDILOL 6.25 MG TABLET PO SCH ×2 (06:16→17:34)
[2018-05-30] MEDS: INSULIN REGULAR, HUMAN 100 UNIT/ML 3ML VIAL LOW DOSE SS SQ-INSULIN SCH ×4 (06:17→20:59)
[2018-05-30 07:03] VITALS: BP 173/70
[2018-05-30] MEDS: FLUTICASONE NASAL SPRAY 16GM NAS SCH (09:00)
[2018-05-30] MEDS: INSULIN GLARGINE 100 UNITS/ML, PEN SQ-INSULIN SCH (09:00)
[2018-05-30 10:18] LABS: ALBUMIN 2.3 g/dL (3.4-5.0); ANION GAP 9 mmol/L (5-15); CALCIUM 8.1 mg/dL (8.5-10.1); CHLORIDE 111 mmol/L (98-107)
[2018-05-30] MEDS: SULFAMETH./TRIMETHOPRIM DS 800MG/160MG TABLET PO SCH ×2 (11:51→23:43)
[2018-05-30] MEDS: PANTOPROZOLE 40MG TABLET PO SCH ×2 (11:51→17:00)
[2018-05-30] MEDS: BENZONATATE 100 MG CAPSULE PO SCH (11:51)
[2018-05-30] MEDS: SENNA/DOCUSATE TABLET PO SCH (11:52)
[2018-05-30] MEDS: AMLODIPINE 5 MG TABLET PO SCH (11:54)
[2018-05-30] MEDS: OXYcodone IR 5MG TABLET PO PRN ×2 (11:54→21:43)
[2018-05-30] MEDS: D5%-0.45% NACL 1,000 ML IV SCH (12:00)
[2018-05-30] MEDS ORDERED: FUROSEMIDE 40 MG/4 ML IV ONE (12:00)
[2018-05-30 12:39] VITALS: BP 136/64
[2018-05-30 16:07] LABS: ANION GAP 9 mmol/L (5-15); CHLORIDE 112 mmol/L (98-107)
[2018-05-30 19:18] VITALS: BP 145/74
[2018-05-30] MEDS: ATORVASTATIN 40 MG TABLET PO SCH (21:13)
[2018-05-31] MEDS: OXYcodone IR 5MG TABLET PO PRN ×2 (00:58→23:38)
[2018-05-31 01:08] VITALS: BP 141/72
[2018-05-31] MEDS: VANCOMYCIN 50 MG/ML ORAL SUSP PO SCH ×5 (04:15→23:35)
[2018-05-31 05:54] LABS: BASOPHILS % (AUTO) 0 % (0-1); EOSINOPHILS # (AUTO) 0.23 x10^3/uL (0-0.4); EOSINOPHILS % (AUTO) 2 % (1-7); LYMPHOCYTES # (AUTO) 0.62 x10^3/uL (1-3.4); LYMPHOCYTES % (AUTO) 6 % (22-44); MD NO; MEAN CORPUSCULAR HEMOGLOBIN 30.9 pg (27.0-34.8); MEAN CORPUSCULAR HGB CONC 33.6 g/dL (32.4-35.8); MEAN PLATELET VOLUME 9.7 fL (7.4-10.4); MONOCYTES % (AUTO) 4 % (2-9); NEUTROPHILS % (AUTO) 88 % (42-75); PLATELET COUNT 295 x10^3/uL (130-400); RED CELL DISTRIBUTION WIDTH 17.9 % (9.6-15.2)
[2018-05-31 05:55] LABS: INTERNATIONAL NORMALIZED RATIO 1.23 (0.93-1.1); PROTHROMBIN TIME 12.9 Seconds (9.6-11.5)
[2018-05-31 05:59] LABS: ALBUMIN 2.3 g/dL (3.4-5.0); ANION GAP 10 mmol/L (5-15); CALCIUM 8.3 mg/dL (8.5-10.1); CHLORIDE 113 mmol/L (98-107)
[2018-05-31 06:04] LABS: ALANINE AMINOTRANSFERASE 47 U/L (12-78); ALKALINE PHOSPHATASE 476 U/L (45-117); BILIRUBIN,TOTAL 0.5 mg/dL (0.2-1.0); CREATININE 3.04 mg/dL (0.55-1.02)
[2018-05-31] MEDS: HEPARIN 5,000 UNITS/ML, 1ML SQ SCH ×4 (06:22→23:31)
[2018-05-31] MEDS: CARVEDILOL 6.25 MG TABLET PO SCH ×2 (06:22→18:00)
[2018-05-31 06:34] VITALS: BP 157/83
[2018-05-31] MEDS: INSULIN REGULAR, HUMAN 100 UNIT/ML 3ML VIAL LOW DOSE SS SQ-INSULIN SCH ×2 (07:00→11:00)
[2018-05-31] MEDS: SENNA/DOCUSATE TABLET PO SCH (09:00)
[2018-05-31] MEDS: AMLODIPINE 5 MG TABLET PO SCH (09:01)
[2018-05-31] MEDS: SULFAMETH./TRIMETHOPRIM DS 800MG/160MG TABLET PO SCH ×2 (09:01→20:30)
[2018-05-31] MEDS: PANTOPROZOLE 40MG TABLET PO SCH ×2 (09:01→16:10)
[2018-05-31] MEDS: FLUTICASONE NASAL SPRAY 16GM NAS SCH (09:02)
[2018-05-31] MEDS: D5%-0.45% NACL 1,000 ML IV SCH (09:03)
[2018-05-31] MEDS: INSULIN GLARGINE 100 UNITS/ML, PEN SQ-INSULIN SCH (09:04)
[2018-05-31] MEDS ORDERED: ALBUMIN HUMAN 25% 100 ML IV ONE (09:30)
[2018-05-31] MEDS ORDERED: FUROSEMIDE 40 MG/4 ML IV ONE (09:30)
[2018-05-31 13:18] VITALS: BP 123/57
[2018-05-31] MEDS ORDERED: OMNIPAQUE 350 MG/ML, 150 ML BOTTLE ONE (14:31)
[2018-05-31] MEDS ORDERED: FUROSEMIDE 40 MG/4 ML ONE (15:29)
[2018-05-31] MEDS ORDERED: DEXTROSE 50%, 50ML SYRINGE ONE (15:50)
[2018-05-31] MEDS ORDERED: DEXTROSE 50%, 50ML SYRINGE IVPush STA (15:56)
[2018-05-31] MEDS ORDERED: DEXTROSE 50%, 50ML SYRINGE IVPush PRN (16:00)
[2018-05-31] MEDS ORDERED: GLUCAGON 1 MG IM PRN (16:00)
[2018-05-31] MEDS ORDERED: DEXTROSE 4 GM TAB.CHEW PO PRN (16:00)
[2018-05-31] MEDS: SODIUM CHLORIDE FLUSH 10ML SYR IVF SCH (20:29)
[2018-05-31] MEDS: ATORVASTATIN 40 MG TABLET PO SCH (20:30)
[2018-05-31 20:34] VITALS: BP 151/66
[2018-05-31] MEDS ORDERED: DEXTROSE 10% 1,000 ML IV SCH (21:00)
[2018-06-01 03:00] VITALS: BP 130/74
[2018-06-01] MEDS: CARVEDILOL 6.25 MG TABLET PO SCH ×2 (06:36→17:12)
[2018-06-01] MEDS: VANCOMYCIN 50 MG/ML ORAL SUSP PO SCH ×4 (06:36→23:57)
[2018-06-01 08:00] LABS: INTERNATIONAL NORMALIZED RATIO 1.18 (0.93-1.1); PROTHROMBIN TIME 12.4 Seconds (9.6-11.5)
[2018-06-01 08:04] LABS: ALBUMIN 2.8 g/dL (3.4-5.0); ANION GAP 10 mmol/L (5-15); CALCIUM 8.5 mg/dL (8.5-10.1); CHLORIDE 112 mmol/L (98-107)
[2018-06-01 08:05] LABS: CREATININE 2.95 mg/dL (0.55-1.02)
[2018-06-01 08:09] LABS: BASOPHILS # (AUTO) 0.02 x10^3/uL (0-0.1); BASOPHILS % (AUTO) 0 % (0-1); EOSINOPHILS % (AUTO) 2 % (1-7); LYMPHOCYTES % (AUTO) 4 % (22-44); MD NO; MEAN CORPUSCULAR HGB CONC 32.6 g/dL (32.4-35.8); MEAN CORPUSCULAR VOLUME 91.9 fL (80-100); MEAN PLATELET VOLUME 9.8 fL (7.4-10.4); MONOCYTES # (AUTO) 0.31 x10^3/uL (0.2-0.8); MONOCYTES % (AUTO) 3 % (2-9); NEUTROPHILS # (AUTO) 10.06 x10^3/uL (1.8-6.8); NEUTROPHILS % (AUTO) 92 % (42-75); PLATELET COUNT 297 x10^3/uL (130-400); RED CELL DISTRIBUTION WIDTH 18.2 % (9.6-15.2)
[2018-06-01] MEDS: SODIUM CHLORIDE FLUSH 10ML SYR IVF SCH ×2 (08:48→21:51)
[2018-06-01] MEDS: PANTOPROZOLE 40MG TABLET PO SCH ×2 (08:48→17:12)
[2018-06-01] MEDS: SULFAMETH./TRIMETHOPRIM DS 800MG/160MG TABLET PO SCH ×2 (08:48→21:51)
[2018-06-01] MEDS: AMLODIPINE 5 MG TABLET PO SCH (08:48)
[2018-06-01] MEDS: HEPARIN 5,000 UNITS/ML, 1ML SQ SCH ×3 (08:48→23:58)
[2018-06-01] MEDS: FLUTICASONE NASAL SPRAY 16GM NAS SCH (08:48)
[2018-06-01 08:55] VITALS: BP 164/71
[2018-06-01] MEDS: SENNA/DOCUSATE TABLET PO SCH (09:00)
--- NOTE | 2018-06-01 09:45 | NUR ---
THIN/GROUND; swallow precautions sheet posted at bedside Addendum: 06/01/18 at [address] Amended: Links added.
[2018-06-01] MEDS ORDERED: D5%-0.45% NACL 1,000 ML IV SCH ×2 (10:00→12:00)
[2018-06-01 12:29] VITALS: BP 158/72
[2018-06-01 16:41] VITALS: BP 162/75
[2018-06-01 20:39] VITALS: BP 167/88
[2018-06-01] MEDS: ATORVASTATIN 40 MG TABLET PO SCH ×2 (21:00→21:51)
[2018-06-02 02:37] VITALS: BP 174/80
[2018-06-02 05:04] LABS: BASOPHILS # (AUTO) 0.01 x10^3/uL (0-0.1); BASOPHILS % (AUTO) 0 % (0-1); EOSINOPHILS # (AUTO) 0.17 x10^3/uL (0-0.4); EOSINOPHILS % (AUTO) 2 % (1-7); LYMPHOCYTES # (AUTO) 0.59 x10^3/uL (1-3.4); LYMPHOCYTES % (AUTO) 5 % (22-44); MD NO; MEAN CORPUSCULAR HGB CONC 33.9 g/dL (32.4-35.8); MEAN CORPUSCULAR VOLUME 91.4 fL (80-100); MEAN PLATELET VOLUME 9.4 fL (7.4-10.4); MONOCYTES % (AUTO) 3 % (2-9); NEUTROPHILS # (AUTO) 10.02 x10^3/uL (1.8-6.8); NEUTROPHILS % (AUTO) 90 % (42-75); PLATELET COUNT 301 x10^3/uL (130-400); RED BLOOD COUNT 3.05 x10^6/uL (3.82-5.3); RED CELL DISTRIBUTION WIDTH 18.1 % (9.6-15.2)
[2018-06-02 05:08] LABS: INTERNATIONAL NORMALIZED RATIO 1.16 (0.93-1.1); PROTHROMBIN TIME 12.2 Seconds (9.6-11.5)
[2018-06-02 05:12] LABS: ALBUMIN 2.6 g/dL (3.4-5.0); ANION GAP 9 mmol/L (5-15); CALCIUM 8.2 mg/dL (8.5-10.1); CHLORIDE 112 mmol/L (98-107)
[2018-06-02 05:17] LABS: ALANINE AMINOTRANSFERASE 36 U/L (12-78); ALKALINE PHOSPHATASE 388 U/L (45-117); BILIRUBIN,TOTAL 0.5 mg/dL (0.2-1.0); CREATININE 2.96 mg/dL (0.55-1.02); TOTAL PROTEIN 5.9 g/dL (6.4-8.2)
[2018-06-02] MEDS: VANCOMYCIN 50 MG/ML ORAL SUSP PO SCH ×3 (05:57→17:48)
[2018-06-02] MEDS: CARVEDILOL 6.25 MG TABLET PO SCH ×2 (05:57→17:48)
[2018-06-02 07:29] VITALS: BP 154/71
[2018-06-02] MEDS: SODIUM CHLORIDE FLUSH 10ML SYR IVF SCH ×2 (08:02→21:15)
[2018-06-02] MEDS: AMLODIPINE 5 MG TABLET PO SCH (08:21)
[2018-06-02] MEDS: HEPARIN 5,000 UNITS/ML, 1ML SQ SCH ×2 (08:21→15:31)
[2018-06-02] MEDS: PANTOPROZOLE 40MG TABLET PO SCH ×2 (08:21→17:48)
[2018-06-02] MEDS: SULFAMETH./TRIMETHOPRIM DS 800MG/160MG TABLET PO SCH ×2 (08:21→21:15)
[2018-06-02] MEDS: SENNA/DOCUSATE TABLET PO SCH (08:21)
[2018-06-02] MEDS: FLUTICASONE NASAL SPRAY 16GM NAS SCH (08:26)
[2018-06-02] MEDS ORDERED: D5%-0.45% NACL 1,000 ML IV SCH (10:00)
[2018-06-02] MEDS ORDERED: ALBUMIN HUMAN 25% 100 ML IV ONE (11:00)
[2018-06-02] MEDS ORDERED: FUROSEMIDE 20 MG/2 ML IV ONE (11:00)
[2018-06-02 12:31] VITALS: BP 168/74
[2018-06-02] MEDS: LORazepam 2 MG/ML, 1ML IVPush PRN (15:31)
[2018-06-02 17:46] VITALS: BP 162/74
[2018-06-02 18:15] VITALS: BP 163/74
[2018-06-02] MEDS: ATORVASTATIN 40 MG TABLET PO SCH (21:15)
[2018-06-02] MEDS: DIPHENHYDRAMINE 25 MG CAPSULE PO PRN (21:20)
[2018-06-03] MEDS: HEPARIN 5,000 UNITS/ML, 1ML SQ SCH ×3 (00:31→17:17)
[2018-06-03] MEDS: VANCOMYCIN 50 MG/ML ORAL SUSP PO SCH ×4 (00:32→17:17)
[2018-06-03 01:33] VITALS: BP 156/73
[2018-06-03 06:10] LABS: BASOPHILS # (AUTO) 0.04 x10^3/uL (0-0.1); BASOPHILS % (AUTO) 0 % (0-1); EOSINOPHILS # (AUTO) 0.32 x10^3/uL (0-0.4); EOSINOPHILS % (AUTO) 3 % (1-7); LYMPHOCYTES # (AUTO) 0.75 x10^3/uL (1-3.4); LYMPHOCYTES % (AUTO) 7 % (22-44); MD NO; MEAN CORPUSCULAR HEMOGLOBIN 31.4 pg (27.0-34.8); MEAN CORPUSCULAR HGB CONC 34.3 g/dL (32.4-35.8); MEAN CORPUSCULAR VOLUME 91.3 fL (80-100); MEAN PLATELET VOLUME 9.2 fL (7.4-10.4); MONOCYTES # (AUTO) 0.65 x10^3/uL (0.2-0.8); MONOCYTES % (AUTO) 6 % (2-9); NEUTROPHILS # (AUTO) 8.88 x10^3/uL (1.8-6.8); NEUTROPHILS % (AUTO) 83 % (42-75); PLATELET COUNT 293 x10^3/uL (130-400); RED CELL DISTRIBUTION WIDTH 18.2 % (9.6-15.2)
[2018-06-03 06:13] LABS: INTERNATIONAL NORMALIZED RATIO 1.16 (0.93-1.1); PROTHROMBIN TIME 12.2 Seconds (9.6-11.5)
[2018-06-03 06:15] LABS: ANION GAP 8 mmol/L (5-15); CALCIUM 8.5 mg/dL (8.5-10.1); CHLORIDE 114 mmol/L (98-107)
[2018-06-03] MEDS: CARVEDILOL 6.25 MG TABLET PO SCH ×2 (06:16→17:17)
[2018-06-03 06:17] LABS: CREATININE 2.81 mg/dL (0.55-1.02)
[2018-06-03 06:19] VITALS: BP 169/75
[2018-06-03 07:38] VITALS: BP 154/60
[2018-06-03 08:20] LABS: HEMOGLOBIN A1C 6.6 % (4.2-6.3)
[2018-06-03] MEDS: FLUTICASONE NASAL SPRAY 16GM NAS SCH (08:31)
[2018-06-03] MEDS: QUETIAPINE 25MG TABLET PO SCH ×2 (08:31→22:46)
[2018-06-03] MEDS: TAMSULOSIN 0.4 MG CAP.ER.24H PO SCH (08:31)
[2018-06-03] MEDS: AMLODIPINE 5 MG TABLET PO SCH (08:31)
[2018-06-03] MEDS: SULFAMETH./TRIMETHOPRIM DS 800MG/160MG TABLET PO SCH ×2 (08:31→22:46)
[2018-06-03] MEDS: PANTOPROZOLE 40MG TABLET PO SCH ×2 (08:31→17:17)
[2018-06-03] MEDS: SODIUM CHLORIDE FLUSH 10ML SYR IVF SCH ×2 (08:32→22:47)
[2018-06-03] MEDS: SENNA/DOCUSATE TABLET PO SCH (08:32)
[2018-06-03 12:32] VITALS: BP 160/70
[2018-06-03 17:16] VITALS: BP 156/73
[2018-06-03] MEDS ORDERED: QUETIAPINE 25MG TABLET PO SCH (18:00)
[2018-06-03 19:26] VITALS: BP 161/70
[2018-06-03] MEDS: ATORVASTATIN 40 MG TABLET PO SCH (22:46)
[2018-06-04] MEDS: HEPARIN 5,000 UNITS/ML, 1ML SQ SCH ×4 (00:37→23:58)
[2018-06-04] MEDS: VANCOMYCIN 50 MG/ML ORAL SUSP PO SCH ×4 (00:37→19:59)
[2018-06-04 02:45] VITALS: BP 164/74
[2018-06-04 05:26] LABS: INTERNATIONAL NORMALIZED RATIO 1.13 (0.93-1.1); PROTHROMBIN TIME 11.9 Seconds (9.6-11.5)
[2018-06-04] MEDS: CARVEDILOL 6.25 MG TABLET PO SCH ×2 (06:46→17:40)
[2018-06-04 07:50] VITALS: BP 164/66
[2018-06-04] MEDS: PANTOPROZOLE 40MG TABLET PO SCH ×2 (08:16→17:40)
[2018-06-04] MEDS: TAMSULOSIN 0.4 MG CAP.ER.24H PO SCH (08:16)
[2018-06-04] MEDS: AMLODIPINE 5 MG TABLET PO SCH (08:16)
[2018-06-04] MEDS: SULFAMETH./TRIMETHOPRIM DS 800MG/160MG TABLET PO SCH ×2 (08:16→20:57)
[2018-06-04] MEDS: QUETIAPINE 25MG TABLET PO SCH ×2 (08:17→20:57)
[2018-06-04] MEDS: SODIUM CHLORIDE FLUSH 10ML SYR IVF SCH ×2 (08:18→21:00)
[2018-06-04] MEDS: FLUTICASONE NASAL SPRAY 16GM NAS SCH (08:18)
[2018-06-04 08:30] LABS: ALBUMIN 2.6 g/dL (3.4-5.0); ANION GAP 9 mmol/L (5-15); CHLORIDE 116 mmol/L (98-107); CREATININE 2.91 mg/dL (0.55-1.02)
[2018-06-04 08:39] LABS: BASOPHILS # (AUTO) 0.07 x10^3/uL (0-0.1); BASOPHILS % (AUTO) 1 % (0-1); EOSINOPHILS # (AUTO) 0.35 x10^3/uL (0-0.4); EOSINOPHILS % (AUTO) 4 % (1-7); LYMPHOCYTES # (AUTO) 0.92 x10^3/uL (1-3.4); LYMPHOCYTES % (AUTO) 10 % (22-44); MD NO; MEAN CORPUSCULAR HEMOGLOBIN 30.3 pg (27.0-34.8); MEAN CORPUSCULAR VOLUME 91.8 fL (80-100); MEAN PLATELET VOLUME 9.7 fL (7.4-10.4); MONOCYTES # (AUTO) 0.63 x10^3/uL (0.2-0.8); MONOCYTES % (AUTO) 7 % (2-9); NEUTROPHILS # (AUTO) 7.55 x10^3/uL (1.8-6.8); NEUTROPHILS % (AUTO) 79 % (42-75); PLATELET COUNT 283 x10^3/uL (130-400); RED BLOOD COUNT 3.12 x10^6/uL (3.82-5.3); RED CELL DISTRIBUTION WIDTH 18.8 % (9.6-15.2)
[2018-06-04] MEDS: SENNA/DOCUSATE TABLET PO SCH (09:00)
[2018-06-04 12:13] VITALS: BP 164/71
[2018-06-04 17:39] VITALS: BP 155/67
[2018-06-04 19:52] VITALS: BP 147/74
[2018-06-04] MEDS: ATORVASTATIN 40 MG TABLET PO SCH (20:57)
[2018-06-04] MEDS: OXYcodone IR 5MG TABLET PO PRN (22:02)
[2018-06-05 00:03] VITALS: BP 154/73
[2018-06-05] MEDS: VANCOMYCIN 50 MG/ML ORAL SUSP PO SCH ×4 (02:00→20:27)
[2018-06-05 06:08] LABS: ALBUMIN 2.6 g/dL (3.4-5.0); ANION GAP 8 mmol/L (5-15); CALCIUM 8.3 mg/dL (8.5-10.1); CHLORIDE 118 mmol/L (98-107); CREATININE 2.87 mg/dL (0.55-1.02)
[2018-06-05 06:10] LABS: BASOPHILS # (AUTO) 0.02 x10^3/uL (0-0.1); BASOPHILS % (AUTO) 0 % (0-1); EOSINOPHILS # (AUTO) 0.26 x10^3/uL (0-0.4); EOSINOPHILS % (AUTO) 2 % (1-7); LYMPHOCYTES % (AUTO) 8 % (22-44); MD NO; MEAN CORPUSCULAR HEMOGLOBIN 31.3 pg (27.0-34.8); MEAN CORPUSCULAR HGB CONC 33.7 g/dL (32.4-35.8); MEAN CORPUSCULAR VOLUME 92.9 fL (80-100); MEAN PLATELET VOLUME 9.4 fL (7.4-10.4); MONOCYTES # (AUTO) 0.66 x10^3/uL (0.2-0.8); MONOCYTES % (AUTO) 5 % (2-9); NEUTROPHILS # (AUTO) 10.89 x10^3/uL (1.8-6.8); NEUTROPHILS % (AUTO) 85 % (42-75); PLATELET COUNT 240 x10^3/uL (130-400); RED BLOOD COUNT 2.91 x10^6/uL (3.82-5.3); RED CELL DISTRIBUTION WIDTH 17.7 % (9.6-15.2)
[2018-06-05] MEDS: CARVEDILOL 6.25 MG TABLET PO SCH ×2 (06:11→17:21)
[2018-06-05 06:36] LABS: INTERNATIONAL NORMALIZED RATIO 1.14 (0.93-1.1)
[2018-06-05 07:30] VITALS: BP 155/75
[2018-06-05] MEDS: SENNA/DOCUSATE TABLET PO SCH (09:00)
[2018-06-05] MEDS: SODIUM CHLORIDE FLUSH 10ML SYR IVF SCH ×2 (09:00→20:27)
[2018-06-05] MEDS: TAMSULOSIN 0.4 MG CAP.ER.24H PO SCH (09:30)
[2018-06-05] MEDS: HEPARIN 5,000 UNITS/ML, 1ML SQ SCH ×2 (09:30→17:20)
[2018-06-05] MEDS: SULFAMETH./TRIMETHOPRIM DS 800MG/160MG TABLET PO SCH (09:30)
[2018-06-05] MEDS: PANTOPROZOLE 40MG TABLET PO SCH ×2 (09:31→17:22)
[2018-06-05] MEDS: QUETIAPINE 25MG TABLET PO SCH ×2 (09:31→20:27)
[2018-06-05] MEDS: AMLODIPINE 5 MG TABLET PO SCH (09:31)
[2018-06-05] MEDS: FLUTICASONE NASAL SPRAY 16GM NAS SCH (09:31)
[2018-06-05 12:02] VITALS: BP 155/68
[2018-06-05] MEDS ORDERED: PHARMACY MAY ADJ FOR RENAL FX MC PRN (17:00)
[2018-06-05] MEDS: CIPROFLOXACIN/PMX 400MG/200ML 200 ML IV SCH (17:20)
[2018-06-05] MEDS: ATORVASTATIN 40 MG TABLET PO SCH (20:27)
[2018-06-05 20:38] VITALS: BP 155/74
[2018-06-05 21:42] VITALS: BP 164/73
[2018-06-06] MEDS: HEPARIN 5,000 UNITS/ML, 1ML SQ SCH ×3 (00:18→16:29)
[2018-06-06 00:34] VITALS: BP 166/76
[2018-06-06] MEDS: VANCOMYCIN 50 MG/ML ORAL SUSP PO SCH ×4 (01:46→20:03)
[2018-06-06 05:08] LABS: BASOPHILS # (AUTO) 0.02 x10^3/uL (0-0.1); BASOPHILS % (AUTO) 0 % (0-1); EOSINOPHILS # (AUTO) 0.46 x10^3/uL (0-0.4); EOSINOPHILS % (AUTO) 4 % (1-7); LYMPHOCYTES # (AUTO) 0.92 x10^3/uL (1-3.4); LYMPHOCYTES % (AUTO) 8 % (22-44); MD NO; MEAN CORPUSCULAR HEMOGLOBIN 30.8 pg (27.0-34.8); MEAN CORPUSCULAR HGB CONC 33.2 g/dL (32.4-35.8); MEAN CORPUSCULAR VOLUME 92.6 fL (80-100); MEAN PLATELET VOLUME 9.4 fL (7.4-10.4); MONOCYTES # (AUTO) 0.48 x10^3/uL (0.2-0.8); MONOCYTES % (AUTO) 4 % (2-9); NEUTROPHILS # (AUTO) 9.63 x10^3/uL (1.8-6.8); NEUTROPHILS % (AUTO) 84 % (42-75); PLATELET COUNT 251 x10^3/uL (130-400); RED BLOOD COUNT 3.14 x10^6/uL (3.82-5.3); RED CELL DISTRIBUTION WIDTH 18.4 % (9.6-15.2)
[2018-06-06 05:18] LABS: ALBUMIN 2.9 g/dL (3.4-5.0); ANION GAP 8 mmol/L (5-15); CALCIUM 8.4 mg/dL (8.5-10.1); CHLORIDE 115 mmol/L (98-107); CREATININE 2.96 mg/dL (0.55-1.02)
[2018-06-06 05:22] LABS: INTERNATIONAL NORMALIZED RATIO 1.12 (0.93-1.1); PROTHROMBIN TIME 11.8 Seconds (9.6-11.5)
[2018-06-06] MEDS: CARVEDILOL 6.25 MG TABLET PO SCH ×2 (06:00→18:27)
[2018-06-06 07:32] VITALS: BP 179/71
[2018-06-06] MEDS: AMLODIPINE 5 MG TABLET PO SCH (07:45)
[2018-06-06] MEDS: SENNA/DOCUSATE TABLET PO SCH ×2 (07:45→08:02)
[2018-06-06] MEDS: QUETIAPINE 25MG TABLET PO SCH ×2 (07:45→20:03)
[2018-06-06] MEDS: TAMSULOSIN 0.4 MG CAP.ER.24H PO SCH (07:45)
[2018-06-06] MEDS: PANTOPROZOLE 40MG TABLET PO SCH ×2 (07:45→16:29)
[2018-06-06] MEDS: FLUTICASONE NASAL SPRAY 16GM NAS SCH (07:46)
[2018-06-06] MEDS: SODIUM CHLORIDE FLUSH 10ML SYR IVF SCH ×2 (07:46→20:03)
[2018-06-06 12:27] VITALS: BP 156/89
[2018-06-06] MEDS: CIPROFLOXACIN/PMX 400MG/200ML 200 ML IV SCH (16:29)
[2018-06-06] MEDS: ATORVASTATIN 40 MG TABLET PO SCH (20:03)
[2018-06-06 20:06] VITALS: BP 176/68
[2018-06-07] MEDS: HEPARIN 5,000 UNITS/ML, 1ML SQ SCH ×3 (00:26→17:31)
[2018-06-07 00:36] VITALS: BP 166/71
[2018-06-07] MEDS: VANCOMYCIN 50 MG/ML ORAL SUSP PO SCH ×4 (01:14→20:36)
[2018-06-07] MEDS: CARVEDILOL 6.25 MG TABLET PO SCH ×2 (04:44→17:31)
[2018-06-07 05:51] LABS: INTERNATIONAL NORMALIZED RATIO 1.13 (0.93-1.1); PROTHROMBIN TIME 11.9 Seconds (9.6-11.5)
[2018-06-07 05:55] LABS: ALBUMIN 3.1 g/dL (3.4-5.0); ANION GAP 7 mmol/L (5-15); CALCIUM 8.9 mg/dL (8.5-10.1); CHLORIDE 115 mmol/L (98-107)
[2018-06-07 05:56] LABS: CREATININE 3.02 mg/dL (0.55-1.02)
[2018-06-07 06:55] VITALS: BP 179/70
[2018-06-07] MEDS: AMLODIPINE 5 MG TABLET PO SCH (07:41)
[2018-06-07] MEDS: PANTOPROZOLE 40MG TABLET PO SCH ×2 (07:42→17:31)
[2018-06-07] MEDS: TAMSULOSIN 0.4 MG CAP.ER.24H PO SCH (07:42)
[2018-06-07] MEDS: QUETIAPINE 25MG TABLET PO SCH ×2 (07:42→20:36)
[2018-06-07] MEDS: SODIUM CHLORIDE FLUSH 10ML SYR IVF SCH ×2 (07:44→20:37)
[2018-06-07] MEDS: SENNA/DOCUSATE TABLET PO SCH (07:44)
[2018-06-07] MEDS: FLUTICASONE NASAL SPRAY 16GM NAS SCH (07:44)
[2018-06-07 12:47] VITALS: BP 165/70
[2018-06-07] MEDS: SERTRALINE 50MG TABLET PO SCH (14:29)
[2018-06-07] MEDS ORDERED: FUROSEMIDE 20 MG/2 ML IV ONE (15:00)
[2018-06-07] MEDS ORDERED: ALBUMIN HUMAN 25% 100 ML IV ONE (15:00)
[2018-06-07] MEDS: CIPROFLOXACIN/PMX 400MG/200ML 200 ML IV SCH (17:31)
[2018-06-07 19:34] VITALS: BP 159/71
[2018-06-07] MEDS: ATORVASTATIN 40 MG TABLET PO SCH (20:36)
[2018-06-08] MEDS: HEPARIN 5,000 UNITS/ML, 1ML SQ SCH ×3 (00:36→17:21)
[2018-06-08 02:17] VITALS: BP 155/62
[2018-06-08] MEDS: CARVEDILOL 6.25 MG TABLET PO SCH ×2 (03:29→17:21)
[2018-06-08] MEDS: VANCOMYCIN 50 MG/ML ORAL SUSP PO SCH ×4 (03:30→20:49)
[2018-06-08 05:35] LABS: BASOPHILS # (AUTO) 0.04 x10^3/uL (0-0.1); BASOPHILS % (AUTO) 0 % (0-1); EOSINOPHILS # (AUTO) 0.18 x10^3/uL (0-0.4); EOSINOPHILS % (AUTO) 2 % (1-7); LYMPHOCYTES # (AUTO) 0.72 x10^3/uL (1-3.4); LYMPHOCYTES % (AUTO) 7 % (22-44); MD NO; MEAN CORPUSCULAR HGB CONC 33.6 g/dL (32.4-35.8); MEAN CORPUSCULAR VOLUME 92.4 fL (80-100); MEAN PLATELET VOLUME 9.2 fL (7.4-10.4); MONOCYTES % (AUTO) 5 % (2-9); NEUTROPHILS # (AUTO) 9.49 x10^3/uL (1.8-6.8); NEUTROPHILS % (AUTO) 87 % (42-75); PLATELET COUNT 239 x10^3/uL (130-400); RED BLOOD COUNT 2.99 x10^6/uL (3.82-5.3); RED CELL DISTRIBUTION WIDTH 18.6 % (9.6-15.2)
[2018-06-08 05:39] LABS: INTERNATIONAL NORMALIZED RATIO 1.14 (0.93-1.1)
[2018-06-08 05:42] LABS: ALANINE AMINOTRANSFERASE 23 U/L (12-78); ANION GAP 10 mmol/L (5-15); CALCIUM 8.7 mg/dL (8.5-10.1); CHLORIDE 116 mmol/L (98-107)
[2018-06-08 05:44] LABS: ALKALINE PHOSPHATASE 291 U/L (45-117); BILIRUBIN,TOTAL 0.8 mg/dL (0.2-1.0); CREATININE 2.97 mg/dL (0.55-1.02); TOTAL PROTEIN 6.3 g/dL (6.4-8.2)
[2018-06-08 08:53] VITALS: BP 162/71
[2018-06-08] MEDS: FLUTICASONE NASAL SPRAY 16GM NAS SCH (09:00)
[2018-06-08] MEDS: SODIUM CHLORIDE FLUSH 10ML SYR IVF SCH ×2 (09:00→20:50)
[2018-06-08] MEDS: SENNA/DOCUSATE TABLET PO SCH (09:43)
[2018-06-08] MEDS: SERTRALINE 50MG TABLET PO SCH (09:43)
[2018-06-08] MEDS: AMLODIPINE 5 MG TABLET PO SCH (09:44)
[2018-06-08] MEDS: TAMSULOSIN 0.4 MG CAP.ER.24H PO SCH (09:44)
[2018-06-08] MEDS: QUETIAPINE 25MG TABLET PO SCH ×2 (09:44→20:49)
[2018-06-08] MEDS: PANTOPROZOLE 40MG TABLET PO SCH ×2 (09:44→17:20)
[2018-06-08] MEDS ORDERED: MAGNESIUM SULFATE 1 GM in SODIUM CHLORIDE 0.9% 50 ML IV ONE (12:00)
[2018-06-08 14:11] VITALS: BP 127/73
[2018-06-08 18:53] VITALS: BP 159/71
[2018-06-08] MEDS: ATORVASTATIN 40 MG TABLET PO SCH (20:49)
[2018-06-09] MEDS: HEPARIN 5,000 UNITS/ML, 1ML SQ SCH ×3 (00:25→17:29)
[2018-06-09 01:23] VITALS: BP 139/72
[2018-06-09] MEDS: VANCOMYCIN 50 MG/ML ORAL SUSP PO SCH ×4 (03:13→21:19)
[2018-06-09 05:02] LABS: BASOPHILS # (AUTO) 0.05 x10^3/uL (0-0.1); BASOPHILS % (AUTO) 1 % (0-1); EOSINOPHILS # (AUTO) 0.17 x10^3/uL (0-0.4); EOSINOPHILS % (AUTO) 2 % (1-7); LYMPHOCYTES # (AUTO) 0.75 x10^3/uL (1-3.4); LYMPHOCYTES % (AUTO) 7 % (22-44); MD NO; MEAN CORPUSCULAR HEMOGLOBIN 31.3 pg (27.0-34.8); MEAN CORPUSCULAR HGB CONC 33.6 g/dL (32.4-35.8); MEAN PLATELET VOLUME 9.3 fL (7.4-10.4); MONOCYTES # (AUTO) 0.48 x10^3/uL (0.2-0.8); MONOCYTES % (AUTO) 4 % (2-9); NEUTROPHILS # (AUTO) 9.38 x10^3/uL (1.8-6.8); NEUTROPHILS % (AUTO) 87 % (42-75); PLATELET COUNT 248 x10^3/uL (130-400); RED BLOOD COUNT 3.13 x10^6/uL (3.82-5.3); RED CELL DISTRIBUTION WIDTH 18.3 % (9.6-15.2)
[2018-06-09 05:14] LABS: CALCIUM 8.7 mg/dL (8.5-10.1); CHLORIDE 116 mmol/L (98-107)
[2018-06-09 05:17] LABS: ANION GAP 10 mmol/L (5-15); CREATININE 3.13 mg/dL (0.55-1.02)
[2018-06-09 05:19] LABS: INTERNATIONAL NORMALIZED RATIO 1.13 (0.93-1.1); PROTHROMBIN TIME 11.9 Seconds (9.6-11.5)
[2018-06-09] MEDS: CARVEDILOL 6.25 MG TABLET PO SCH ×2 (05:33→17:30)
[2018-06-09 08:08] VITALS: BP 152/69
[2018-06-09] MEDS: SENNA/DOCUSATE TABLET PO SCH (08:09)
[2018-06-09] MEDS: AMLODIPINE 5 MG TABLET PO SCH (08:09)
[2018-06-09] MEDS: SERTRALINE 50MG TABLET PO SCH (08:10)
[2018-06-09] MEDS: PANTOPROZOLE 40MG TABLET PO SCH ×2 (08:10→17:29)
[2018-06-09] MEDS: TAMSULOSIN 0.4 MG CAP.ER.24H PO SCH (08:10)
[2018-06-09] MEDS: SODIUM CHLORIDE FLUSH 10ML SYR IVF SCH ×2 (08:11→21:19)
[2018-06-09] MEDS: QUETIAPINE 25MG TABLET PO SCH ×2 (08:11→21:18)
[2018-06-09] MEDS: FLUTICASONE NASAL SPRAY 16GM NAS SCH (10:00)
[2018-06-09 14:27] VITALS: BP 133/78
[2018-06-09 19:32] VITALS: BP 160/75
[2018-06-09] MEDS: ATORVASTATIN 40 MG TABLET PO SCH (21:18)
[2018-06-10 00:08] VITALS: BP_SYST 126; BP_SYST 161; BP_DIAS 84
[2018-06-10] MEDS: HEPARIN 5,000 UNITS/ML, 1ML SQ SCH ×3 (00:17→16:59)
[2018-06-10] MEDS: VANCOMYCIN 50 MG/ML ORAL SUSP PO SCH ×4 (02:06→21:09)
[2018-06-10 06:02] LABS: INTERNATIONAL NORMALIZED RATIO 1.14 (0.93-1.1)
[2018-06-10 06:08] VITALS: BP 159/75
[2018-06-10] MEDS: CARVEDILOL 6.25 MG TABLET PO SCH ×2 (06:09→16:59)
[2018-06-10 06:10] LABS: ANION GAP 11 mmol/L (5-15); CHLORIDE 116 mmol/L (98-107); CREATININE 3.16 mg/dL (0.55-1.02)
[2018-06-10 07:17] LABS: BASOPHILS # (AUTO) 0.03 x10^3/uL (0-0.1); BASOPHILS % (AUTO) 0 % (0-1); EOSINOPHILS # (AUTO) 0.13 x10^3/uL (0-0.4); EOSINOPHILS % (AUTO) 1 % (1-7); LYMPHOCYTES # (AUTO) 0.65 x10^3/uL (1-3.4); LYMPHOCYTES % (AUTO) 6 % (22-44); MD NO; MEAN CORPUSCULAR HEMOGLOBIN 30.9 pg (27.0-34.8); MEAN CORPUSCULAR HGB CONC 33.6 g/dL (32.4-35.8); MEAN PLATELET VOLUME 10.1 fL (7.4-10.4); MONOCYTES # (AUTO) 0.38 x10^3/uL (0.2-0.8); MONOCYTES % (AUTO) 4 % (2-9); NEUTROPHILS # (AUTO) 8.95 x10^3/uL (1.8-6.8); NEUTROPHILS % (AUTO) 88 % (42-75); PLATELET COUNT 222 x10^3/uL (130-400); RED BLOOD COUNT 3.13 x10^6/uL (3.82-5.3)
[2018-06-10] MEDS: SERTRALINE 50MG TABLET PO SCH (08:14)
[2018-06-10] MEDS: SENNA/DOCUSATE TABLET PO SCH (08:15)
[2018-06-10] MEDS: PANTOPROZOLE 40MG TABLET PO SCH ×2 (08:15→16:59)
[2018-06-10] MEDS: TAMSULOSIN 0.4 MG CAP.ER.24H PO SCH (08:15)
[2018-06-10] MEDS: FLUTICASONE NASAL SPRAY 16GM NAS SCH (08:15)
[2018-06-10] MEDS: AMLODIPINE 5 MG TABLET PO SCH (08:15)
[2018-06-10] MEDS: QUETIAPINE 25MG TABLET PO SCH ×2 (08:15→21:09)
[2018-06-10] MEDS: SODIUM CHLORIDE FLUSH 10ML SYR IVF SCH ×2 (08:17→21:10)
[2018-06-10] MEDS: SODIUM BICARBONATE 650 MG TABLET PO SCH ×2 (12:17→21:09)
[2018-06-10 14:10] VITALS: BP 138/77
[2018-06-10 19:23] VITALS: BP 159/69
[2018-06-10] MEDS: ATORVASTATIN 40 MG TABLET PO SCH (21:09)
[2018-06-11] MEDS: HEPARIN 5,000 UNITS/ML, 1ML SQ SCH ×3 (00:57→16:52)
[2018-06-11 01:49] VITALS: BP 170/74
[2018-06-11] MEDS: VANCOMYCIN 50 MG/ML ORAL SUSP PO SCH ×5 (02:39→23:59)
[2018-06-11 05:39] VITALS: BP 185/77
[2018-06-11] MEDS: CARVEDILOL 6.25 MG TABLET PO SCH ×2 (05:39→16:57)
[2018-06-11 05:55] LABS: BASOPHILS # (AUTO) 0.04 x10^3/uL (0-0.1); BASOPHILS % (AUTO) 0 % (0-1); EOSINOPHILS # (AUTO) 0.16 x10^3/uL (0-0.4); EOSINOPHILS % (AUTO) 2 % (1-7); LYMPHOCYTES % (AUTO) 9 % (22-44); MD NO; MEAN CORPUSCULAR HEMOGLOBIN 30.5 pg (27.0-34.8); MEAN CORPUSCULAR HGB CONC 33.2 g/dL (32.4-35.8); MEAN CORPUSCULAR VOLUME 91.9 fL (80-100); MEAN PLATELET VOLUME 9.7 fL (7.4-10.4); MONOCYTES # (AUTO) 0.43 x10^3/uL (0.2-0.8); MONOCYTES % (AUTO) 5 % (2-9); NEUTROPHILS # (AUTO) 6.72 x10^3/uL (1.8-6.8); NEUTROPHILS % (AUTO) 84 % (42-75); PLATELET COUNT 247 x10^3/uL (130-400); RED BLOOD COUNT 3.17 x10^6/uL (3.82-5.3)
[2018-06-11 05:57] LABS: INTERNATIONAL NORMALIZED RATIO 1.14 (0.93-1.1)
[2018-06-11 06:01] LABS: CHLORIDE 116 mmol/L (98-107)
[2018-06-11 06:07] LABS: ALBUMIN 3.1 g/dL (3.4-5.0); ANION GAP 13 mmol/L (5-15); CALCIUM 8.7 mg/dL (8.5-10.1); CREATININE 3.09 mg/dL (0.55-1.02)
[2018-06-11 07:06] VITALS: BP 179/75
[2018-06-11] MEDS: AMLODIPINE 5 MG TABLET PO SCH (07:49)
[2018-06-11] MEDS: PANTOPROZOLE 40MG TABLET PO SCH ×2 (07:49→16:58)
[2018-06-11] MEDS: TAMSULOSIN 0.4 MG CAP.ER.24H PO SCH (07:50)
[2018-06-11] MEDS: SODIUM BICARBONATE 650 MG TABLET PO SCH ×2 (07:50→22:04)
[2018-06-11] MEDS: SERTRALINE 50MG TABLET PO SCH (07:50)
[2018-06-11] MEDS: SENNA/DOCUSATE TABLET PO SCH ×2 (07:52→08:09)
[2018-06-11] MEDS: FLUTICASONE NASAL SPRAY 16GM NAS SCH (07:52)
[2018-06-11] MEDS: QUETIAPINE 25MG TABLET PO SCH ×2 (07:58→22:04)
[2018-06-11] MEDS: SODIUM CHLORIDE FLUSH 10ML SYR IVF SCH ×2 (07:59→22:06)
[2018-06-11 13:28] VITALS: BP 162/73
[2018-06-11 19:22] VITALS: BP 160/79
[2018-06-11] MEDS: PANTOPRAZOLE 40 MG IV IVPush SCH (22:04)
[2018-06-11] MEDS: ATORVASTATIN 40 MG TABLET PO SCH (22:04)
[2018-06-12 02:33] VITALS: BP 171/66
[2018-06-12 05:51] LABS: INTERNATIONAL NORMALIZED RATIO 1.16 (0.93-1.1); PROTHROMBIN TIME 12.2 Seconds (9.6-11.5)
[2018-06-12 05:56] LABS: ALBUMIN 3.3 g/dL (3.4-5.0); ANION GAP 10 mmol/L (5-15); CALCIUM 8.3 mg/dL (8.5-10.1); CHLORIDE 118 mmol/L (98-107); CREATININE 2.94 mg/dL (0.55-1.02)
[2018-06-12] MEDS: CARVEDILOL 6.25 MG TABLET PO SCH ×2 (06:00→17:44)
[2018-06-12 06:01] VITALS: BP 176/74
[2018-06-12] MEDS: HEPARIN 5,000 UNITS/ML, 1ML SQ SCH ×3 (08:30→16:21)
[2018-06-12] MEDS: TAMSULOSIN 0.4 MG CAP.ER.24H PO SCH (08:31)
[2018-06-12] MEDS: QUETIAPINE 25MG TABLET PO SCH ×2 (08:31→21:00)
[2018-06-12] MEDS: PANTOPRAZOLE 40 MG IV IVPush SCH ×2 (08:31→17:47)
[2018-06-12] MEDS: SENNA/DOCUSATE TABLET PO SCH (08:32)
[2018-06-12] MEDS: SERTRALINE 50MG TABLET PO SCH (08:32)
[2018-06-12] MEDS: SODIUM BICARBONATE 650 MG TABLET PO SCH ×2 (08:32→21:00)
[2018-06-12] MEDS: AMLODIPINE 5 MG TABLET PO SCH (08:32)
[2018-06-12] MEDS: SODIUM CHLORIDE FLUSH 10ML SYR IVF SCH (08:33)
[2018-06-12] MEDS: FLUTICASONE NASAL SPRAY 16GM NAS SCH (08:39)
[2018-06-12 09:08] LABS: BASOPHILS # (AUTO) 0.02 x10^3/uL (0-0.1); BASOPHILS % (AUTO) 0 % (0-1); EOSINOPHILS # (AUTO) 0.04 x10^3/uL (0-0.4); EOSINOPHILS % (AUTO) 1 % (1-7); LYMPHOCYTES # (AUTO) 0.44 x10^3/uL (1-3.4); LYMPHOCYTES % (AUTO) 9 % (22-44); MD NO; MEAN CORPUSCULAR HEMOGLOBIN 30.1 pg (27.0-34.8); MEAN CORPUSCULAR HGB CONC 32.7 g/dL (32.4-35.8); MEAN CORPUSCULAR VOLUME 92.2 fL (80-100); MEAN PLATELET VOLUME 9.7 fL (7.4-10.4); MONOCYTES # (AUTO) 0.16 x10^3/uL (0.2-0.8); MONOCYTES % (AUTO) 3 % (2-9); NEUTROPHILS # (AUTO) 4.07 x10^3/uL (1.8-6.8); NEUTROPHILS % (AUTO) 86 % (42-75); PLATELET COUNT 227 x10^3/uL (130-400); RED BLOOD COUNT 3.15 x10^6/uL (3.82-5.3); RED CELL DISTRIBUTION WIDTH 18.1 % (9.6-15.2)
[2018-06-12 09:50] VITALS: BP 153/57
[2018-06-12 15:31] VITALS: BP 152/70
[2018-06-12 16:23] LABS: BASOPHILS # (AUTO) 0.02 x10^3/uL (0-0.1); BASOPHILS % (AUTO) 1 % (0-1); EOSINOPHILS # (AUTO) 0.04 x10^3/uL (0-0.4); EOSINOPHILS % (AUTO) 1 % (1-7); LYMPHOCYTES # (AUTO) 0.42 x10^3/uL (1-3.4); LYMPHOCYTES % (AUTO) 10 % (22-44); MD NO; MEAN CORPUSCULAR HEMOGLOBIN 31.4 pg (27.0-34.8); MEAN CORPUSCULAR HGB CONC 34.4 g/dL (32.4-35.8); MEAN CORPUSCULAR VOLUME 91.3 fL (80-100); MEAN PLATELET VOLUME 10.1 fL (7.4-10.4); MONOCYTES # (AUTO) 0.19 x10^3/uL (0.2-0.8); MONOCYTES % (AUTO) 5 % (2-9); NEUTROPHILS # (AUTO) 3.38 x10^3/uL (1.8-6.8); NEUTROPHILS % (AUTO) 84 % (42-75); PLATELET COUNT 210 x10^3/uL (130-400); RED BLOOD COUNT 2.96 x10^6/uL (3.82-5.3); RED CELL DISTRIBUTION WIDTH 18.8 % (9.6-15.2)
[2018-06-12 17:41] VITALS: BP 147/58
[2018-06-12 20:00] VITALS: BP 176/68
[2018-06-12] MEDS: ATORVASTATIN 40 MG TABLET PO SCH (21:00)
[2018-06-12 21:29] LABS: BASOPHILS # (AUTO) 0.03 x10^3/uL (0-0.1); BASOPHILS % (AUTO) 1 % (0-1); EOSINOPHILS # (AUTO) 0.05 x10^3/uL (0-0.4); EOSINOPHILS % (AUTO) 1 % (1-7); LYMPHOCYTES # (AUTO) 0.46 x10^3/uL (1-3.4); LYMPHOCYTES % (AUTO) 11 % (22-44); MEAN CORPUSCULAR HEMOGLOBIN 30.6 pg (27.0-34.8); MEAN CORPUSCULAR HGB CONC 33.2 g/dL (32.4-35.8); MEAN CORPUSCULAR VOLUME 92.1 fL (80-100); MEAN PLATELET VOLUME 9.9 fL (7.4-10.4); MONOCYTES % (AUTO) 5 % (2-9); NEUTROPHILS # (AUTO) 3.62 x10^3/uL (1.8-6.8); NEUTROPHILS % (AUTO) 83 % (42-75); PLATELET COUNT 215 x10^3/uL (130-400); RED CELL DISTRIBUTION WIDTH 18.4 % (9.6-15.2)
[2018-06-12 21:30] LABS: MD NO
[2018-06-13] MEDS: QUETIAPINE 25MG TABLET PO SCH ×3 (00:31→22:43)
[2018-06-13] MEDS: SODIUM BICARBONATE 650 MG TABLET PO SCH ×4 (00:32→11:30)
[2018-06-13] MEDS: SODIUM CHLORIDE FLUSH 10ML SYR IVF SCH ×3 (00:32→22:44)
[2018-06-13] MEDS: HEPARIN 5,000 UNITS/ML, 1ML SQ SCH ×3 (00:32→16:58)
[2018-06-13] MEDS: ATORVASTATIN 40 MG TABLET PO SCH ×2 (01:02→21:50)
[2018-06-13 02:00] VITALS: BP 173/77
[2018-06-13 05:52] LABS: BASOPHILS # (AUTO) 0.01 x10^3/uL (0-0.1); BASOPHILS % (AUTO) 0 % (0-1); EOSINOPHILS # (AUTO) 0.01 x10^3/uL (0-0.4); EOSINOPHILS % (AUTO) 0 % (1-7); LYMPHOCYTES # (AUTO) 0.42 x10^3/uL (1-3.4); LYMPHOCYTES % (AUTO) 9 % (22-44); MD NO; MEAN CORPUSCULAR HEMOGLOBIN 30.9 pg (27.0-34.8); MEAN CORPUSCULAR HGB CONC 33.6 g/dL (32.4-35.8); MEAN CORPUSCULAR VOLUME 92.1 fL (80-100); MEAN PLATELET VOLUME 10.5 fL (7.4-10.4); MONOCYTES # (AUTO) 0.15 x10^3/uL (0.2-0.8); MONOCYTES % (AUTO) 3 % (2-9); NEUTROPHILS # (AUTO) 4.05 x10^3/uL (1.8-6.8); NEUTROPHILS % (AUTO) 87 % (42-75); PLATELET COUNT 240 x10^3/uL (130-400); RED CELL DISTRIBUTION WIDTH 18.3 % (9.6-15.2)
[2018-06-13 05:53] LABS: INTERNATIONAL NORMALIZED RATIO 1.17 (0.93-1.1); PROTHROMBIN TIME 12.3 Seconds (9.6-11.5)
[2018-06-13 05:56] LABS: ALBUMIN 3.3 g/dL (3.4-5.0); ANION GAP 10 mmol/L (5-15); CALCIUM 8.3 mg/dL (8.5-10.1); CHLORIDE 120 mmol/L (98-107); CREATININE 2.82 mg/dL (0.55-1.02)
[2018-06-13] MEDS: PANTOPRAZOLE 40 MG IV IVPush SCH ×2 (06:38→19:00)
[2018-06-13] MEDS: CARVEDILOL 6.25 MG TABLET PO SCH ×2 (06:39→19:00)
[2018-06-13 07:00] VITALS: BP 174/76
[2018-06-13] MEDS: AMLODIPINE 5 MG TABLET PO SCH (10:00)
[2018-06-13] MEDS: FLUTICASONE NASAL SPRAY 16GM NAS SCH (10:00)
[2018-06-13] MEDS: SENNA/DOCUSATE TABLET PO SCH (10:00)
[2018-06-13] MEDS: TAMSULOSIN 0.4 MG CAP.ER.24H PO SCH (10:00)
[2018-06-13] MEDS: SERTRALINE 50MG TABLET PO SCH (10:08)
[2018-06-13 11:44] VITALS: BP 155/79
[2018-06-13 12:00] VITALS: BP 155/79
[2018-06-13 13:59] VITALS: BP 127/58
[2018-06-13] MEDS ORDERED: ISOSORBIDE DINITRATE 10 MG TABLET PO SCH (16:00)
[2018-06-13 16:28] LABS: BASOPHILS # (AUTO) 0.02 x10^3/uL (0-0.1); BASOPHILS % (AUTO) 0 % (0-1); EOSINOPHILS # (AUTO) 0.02 x10^3/uL (0-0.4); EOSINOPHILS % (AUTO) 0 % (1-7); LYMPHOCYTES # (AUTO) 0.45 x10^3/uL (1-3.4); LYMPHOCYTES % (AUTO) 10 % (22-44); MD NO; MEAN CORPUSCULAR HEMOGLOBIN 30.3 pg (27.0-34.8); MEAN CORPUSCULAR HGB CONC 33.1 g/dL (32.4-35.8); MEAN CORPUSCULAR VOLUME 91.4 fL (80-100); MEAN PLATELET VOLUME 10.4 fL (7.4-10.4); MONOCYTES % (AUTO) 4 % (2-9); NEUTROPHILS # (AUTO) 3.84 x10^3/uL (1.8-6.8); NEUTROPHILS % (AUTO) 85 % (42-75); PLATELET COUNT 215 x10^3/uL (130-400); RED BLOOD COUNT 2.99 x10^6/uL (3.82-5.3); RED CELL DISTRIBUTION WIDTH 18.9 % (9.6-15.2)
[2018-06-13] MEDS: ISOSORBIDE DINITRATE 10 MG TABLET PO SCH ×2 (17:00→21:50)
[2018-06-13] MEDS: LACTOBACILLUS CHEW TABLET PO SCH ×2 (17:00→21:49)
[2018-06-13 18:47] VITALS: BP 155/63
[2018-06-13] MEDS: INSULIN LISPRO 100 UNITS/ML, PEN SQ-INSULIN SCH ×2 (18:53→22:44)
[2018-06-13 21:29] LABS: BASOPHILS # (AUTO) 0.01 x10^3/uL (0-0.1); BASOPHILS % (AUTO) 0 % (0-1); EOSINOPHILS # (AUTO) 0.02 x10^3/uL (0-0.4); EOSINOPHILS % (AUTO) 1 % (1-7); LYMPHOCYTES # (AUTO) 0.43 x10^3/uL (1-3.4); LYMPHOCYTES % (AUTO) 10 % (22-44); MD NO; MEAN CORPUSCULAR HEMOGLOBIN 30.6 pg (27.0-34.8); MEAN CORPUSCULAR HGB CONC 33.6 g/dL (32.4-35.8); MEAN CORPUSCULAR VOLUME 90.9 fL (80-100); MEAN PLATELET VOLUME 10.5 fL (7.4-10.4); MONOCYTES # (AUTO) 0.22 x10^3/uL (0.2-0.8); MONOCYTES % (AUTO) 5 % (2-9); NEUTROPHILS # (AUTO) 3.72 x10^3/uL (1.8-6.8); NEUTROPHILS % (AUTO) 84 % (42-75); PLATELET COUNT 211 x10^3/uL (130-400); RED BLOOD COUNT 2.87 x10^6/uL (3.82-5.3); RED CELL DISTRIBUTION WIDTH 18.6 % (9.6-15.2)
[2018-06-14] MEDS: HEPARIN 5,000 UNITS/ML, 1ML SQ SCH ×3 (00:30→06:35)
[2018-06-14 01:15] VITALS: BP 135/68
[2018-06-14] MEDS: OXYcodone IR 5MG TABLET PO PRN (02:10)
[2018-06-14] MEDS: CARVEDILOL 6.25 MG TABLET PO SCH (06:00)
[2018-06-14] MEDS: PANTOPRAZOLE 40 MG IV IVPush SCH (06:35)
[2018-06-14] MEDS: INSULIN LISPRO 100 UNITS/ML, PEN SQ-INSULIN SCH ×2 (06:39→11:00)
[2018-06-14 06:54] LABS: BASOPHILS # (AUTO) 0.01 x10^3/uL (0-0.1); BASOPHILS % (AUTO) 0 % (0-1); EOSINOPHILS # (AUTO) 0.01 x10^3/uL (0-0.4); EOSINOPHILS % (AUTO) 0 % (1-7); LYMPHOCYTES # (AUTO) 0.52 x10^3/uL (1-3.4); LYMPHOCYTES % (AUTO) 15 % (22-44); MD NO; MEAN CORPUSCULAR HEMOGLOBIN 30.4 pg (27.0-34.8); MEAN CORPUSCULAR HGB CONC 32.7 g/dL (32.4-35.8); MEAN PLATELET VOLUME 9.9 fL (7.4-10.4); MONOCYTES # (AUTO) 0.14 x10^3/uL (0.2-0.8); MONOCYTES % (AUTO) 4 % (2-9); NEUTROPHILS % (AUTO) 81 % (42-75); PLATELET COUNT 173 x10^3/uL (130-400); RED BLOOD COUNT 2.56 x10^6/uL (3.82-5.3); RED CELL DISTRIBUTION WIDTH 19.6 % (9.6-15.2)
[2018-06-14 07:01] LABS: INTERNATIONAL NORMALIZED RATIO 1.3 (0.93-1.1); PROTHROMBIN TIME 13.6 Seconds (9.6-11.5)
[2018-06-14 07:04] LABS: ALBUMIN 2.8 g/dL (3.4-5.0); ANION GAP 7 mmol/L (5-15); CHLORIDE 121 mmol/L (98-107); CREATININE 2.82 mg/dL (0.55-1.02)
[2018-06-14 07:30] VITALS: BP 75/43
[2018-06-14 08:07] LABS: BASOPHILS # (AUTO) 0.01 x10^3/uL (0-0.1); BASOPHILS % (AUTO) 0 % (0-1); EOSINOPHILS # (AUTO) 0.01 x10^3/uL (0-0.4); EOSINOPHILS % (AUTO) 0 % (1-7); LYMPHOCYTES % (AUTO) 15 % (22-44); MD NO; MEAN CORPUSCULAR HEMOGLOBIN 30.9 pg (27.0-34.8); MEAN CORPUSCULAR HGB CONC 33.3 g/dL (32.4-35.8); MEAN CORPUSCULAR VOLUME 92.8 fL (80-100); MEAN PLATELET VOLUME 10.2 fL (7.4-10.4); MONOCYTES # (AUTO) 0.16 x10^3/uL (0.2-0.8); MONOCYTES % (AUTO) 4 % (2-9); NEUTROPHILS % (AUTO) 80 % (42-75); PLATELET COUNT 187 x10^3/uL (130-400); RED BLOOD COUNT 2.73 x10^6/uL (3.82-5.3); RED CELL DISTRIBUTION WIDTH 19.2 % (9.6-15.2)
[2018-06-14 08:10] VITALS: BP 109/48
[2018-06-14 08:16] LABS: ANION GAP 7 mmol/L (5-15); CALCIUM 7.3 mg/dL (8.5-10.1); CHLORIDE 121 mmol/L (98-107)
[2018-06-14 08:20] LABS: TROPONIN I < 0.015 ng/mL (0.000-0.045)
[2018-06-14] MEDS: LACTOBACILLUS CHEW TABLET PO SCH (09:00)
[2018-06-14] MEDS: TAMSULOSIN 0.4 MG CAP.ER.24H PO SCH (09:00)
[2018-06-14] MEDS: SERTRALINE 50MG TABLET PO SCH (09:00)
[2018-06-14] MEDS: SENNA/DOCUSATE TABLET PO SCH (09:00)
[2018-06-14] MEDS ORDERED: DEXTROSE 5% 1,000 ML IV SCH (10:00)
[2018-06-14] MEDS: FLUTICASONE NASAL SPRAY 16GM NAS SCH (11:13)
[2018-06-14] MEDS: SODIUM CHLORIDE FLUSH 10ML SYR IVF SCH (11:13)
[2018-06-14] MEDS ORDERED: PIPERACILLIN/TAZO/PMX 2.25GM 50 ML IV SCH (13:00)
[2018-06-14] MEDS ORDERED: LINEZOLID PMX 600MG/300ML 300 ML IV SCH (13:00)
[2018-06-14] MEDS ORDERED: VANCOMYCIN 50 MG/ML ORAL SUSP PO SCH (13:00)
[2018-06-14 14:08] LABS: CLOSTRIDIUM DIFFICILE ANTIGEN POSITIVE
[2018-06-14 14:09] LABS: CLOSTRIDIUM DIFFICILE TOXIN NEGATIVE (Negative)
[2018-06-14] MEDS ORDERED: ATROPINE OPHTH SOLN 1%, 5ML PO PRN (14:30)
[2018-06-14] MEDS ORDERED: LORazepam 2 MG/ML, 1ML IVPush PRN (14:30)
[2018-06-14] MEDS ORDERED: MORPHINE 30MG/30ML PCA.SYR IV PRN (15:00)
== END 2018-06-14 22:15 | disposition expired | DRG 853 ==
LOC: ED 13:26 → EDIP 13:27 → ED 14:30 → EDIP 16:04 → CSU 16:04 → CCU 04-29 01:01 → 5SO 04-29 10:23 → 3NE 05-03 16:35 → 4NOR 05-19 13:32 → ICU 06-14 08:17 → 3NW 06-14 16:00
PROVIDERS: ADMIT Internal Medicine; ATTEND Family Medicine
PROC: 30233K1 Transfusion of Nonautologous Frozen Plasma into Peripheral Vein, Percutaneous Approach (ICD-10-PCS; 2018-05-14)
PROC: 30233L1 Transfusion of Nonautologous Fresh Plasma into Peripheral Vein, Percutaneous Approach (ICD-10-PCS; 2018-05-14)
PROC: 30233N1 Transfusion of Nonautologous Red Blood Cells into Peripheral Vein, Percutaneous Approach (ICD-10-PCS; 2018-05-14)
PROC: 0DBK8ZZ Excision of Ascending Colon, Via Natural or Artificial Opening Endoscopic (ICD-10-PCS; 2018-05-16)
PROC: 0DBN8ZZ Excision of Sigmoid Colon, Via Natural or Artificial Opening Endoscopic (ICD-10-PCS; 2018-05-16)
PROC: 0DBP8ZX Excision of Rectum, Via Natural or Artificial Opening Endoscopic, Diagnostic (ICD-10-PCS; 2018-05-16)
PROC: 0D968ZZ Drainage of Stomach, Via Natural or Artificial Opening Endoscopic (ICD-10-PCS; principal; 2018-05-16 08:00)
PROC: 0TB13ZX Excision of Left Kidney, Percutaneous Approach, Diagnostic (ICD-10-PCS; 2018-05-17)
PROC: 0D1N4Z4 Bypass Sigmoid Colon to Cutaneous, Percutaneous Endoscopic Approach (ICD-10-PCS; 2018-05-19)
PROC: 0W9G4ZZ Drainage of Peritoneal Cavity, Percutaneous Endoscopic Approach (ICD-10-PCS; 2018-05-19)
PROC: 0T9B70Z Drainage of Bladder with Drainage Device, Via Natural or Artificial Opening (ICD-10-PCS; 2018-05-27)
PROC: 0DBP8ZZ Excision of Rectum, Via Natural or Artificial Opening Endoscopic (ICD-10-PCS; 2018-05-27)
DX: A41.9 Sepsis, unspecified organism (principal); J69.0 Pneumonitis due to inhalation of food and vomit; N17.0 Acute kidney failure with tubular necrosis; G93.41 Metabolic encephalopathy; E43 Unspecified severe protein-calorie malnutrition; J96.01 Acute respiratory failure with hypoxia; E87.0 Hyperosmolality and hypernatremia; A04.72 Enterocolitis due to Clostridium difficile, not specified as recurrent; C20 Malignant neoplasm of rectum; D68.69 Other thrombophilia; F02.81 Dementia in other diseases classified elsewhere, unspecified severity, with behavioral disturbance; I13.0 Hypertensive heart and chronic kidney disease with heart failure and stage 1 through stage 4 chronic kidney disease, or unspecified chronic kidney disease; N39.0 Urinary tract infection, site not specified; Q43.7 Persistent cloaca; S37.012A Minor contusion of left kidney, initial encounter; F41.9 Anxiety disorder, unspecified; B96.89 Other specified bacterial agents as the cause of diseases classified elsewhere; D63.1 Anemia in chronic kidney disease; E11.21 Type 2 diabetes mellitus with diabetic nephropathy; E11.22 Type 2 diabetes mellitus with diabetic chronic kidney disease; E11.65 Type 2 diabetes mellitus with hyperglycemia; E55.9 Vitamin D deficiency, unspecified; E78.5 Hyperlipidemia, unspecified; E87.5 Hyperkalemia; E87.8 Other disorders of electrolyte and fluid balance, not elsewhere classified; F32.9 Major depressive disorder, single episode, unspecified; G20 Parkinson's disease; G30.9 Alzheimer's disease, unspecified; I08.1 Rheumatic disorders of both mitral and tricuspid valves; Z66 Do not resuscitate; I48.2 Chronic atrial fibrillation; I50.9 Heart failure, unspecified; K57.90 Diverticulosis of intestine, part unspecified, without perforation or abscess without bleeding; Z68.21 Body mass index [BMI] 21.0-21.9, adult; K63.5 Polyp of colon; N18.3 Chronic kidney disease, stage 3 (moderate); R32 Unspecified urinary incontinence; Y95 Nosocomial condition; Z51.5 Encounter for palliative care; Z79.01 Long term (current) use of anticoagulants; Z79.82 Long term (current) use of aspirin; Z79.899 Other long term (current) drug therapy; Z87.891 Personal history of nicotine dependence; Z91.19 Patient's noncompliance with other medical treatment and regimen
CPT/HCPCS: 36415; 36600; 50200; 70450; 71045; 71250; 72195; 74018; 74176; 74181; 74230; 74250; 76700; 76770; 77012; 80048; 80053; 80061; 80069; 80074; 80202; 81001; 82040; 82043; 82140; 82274; 82306; 82310; 82330; 82378; 82436; 82533; 82550; 82570; 82728; 82803; 82962; 83036; 83540; 83550; 83605; 83690; 83735; 83883; 83970; 84100; 84133; 84145; 84155; 84156; 84165; 84166; 84300; 84439; 84443; 84484; 84540; 84550; 85018; 85025; 85610; 86038; 86160; 86162; 86256; 86301; 86677; 86850; 86900; 86923; 87040; 87077; 87081; 87086; 87186; 87324; 88300; 88305; 88309; 88313; 88331; 88346; 88348; 88350; 93005; 93306; 96365; 96366; 96367; 96368; 96375; 99156; 99157; G0378; J0295; J0696; J0744; J0881; J1644; J1756; J1815; J1940; J2250; J2270; J2405; J2543; J2704; J2710; J3010; J3370; J3430; J3475; J3480; J3490; J7070; P9047; Q0162; Q9967; 92523-GN; A4648; C9113; G0515-GN; J0330; J0360; J2060; J2310; J2370; J2765; J7030; J7050; P9016; P9017; Q0163; Q0177